=== PATIENT | male | born 1945 | race Caucasian/White ===

== ENCOUNTER 2021-01-05 12:39 | Inpatient (IN) | payer MEDICARE, OTHER, SELFPAY ==
--- NOTE | ~2021-01-05 | XR_ITS ---
EXAMINATION: LEFT ELBOW AND FOREARM X-RAY CLINICAL INFORMATION: REDNESS. EVALUATE FOR OSTEOMYELITIS. COMPARISON: None TECHNIQUE: 2 views of the left forearm and 3 views of the left elbow FINDINGS: Bone alignment is normal. No fracture or dislocation is seen. The joint space is normal. There may be a small joint elbow joint effusion. There is a diffuse soft tissue swelling of the elbow and proximal forearm. This is greatest over the dorsal proximal forearm adjacent to the proximal ulnar shaft. This is slightly heterogeneous in attenuation with oval-shaped a high attenuation area measuring 0.6 x 1.6 cm. Clinical exclude possible foreign body is recommended. No x-ray evidence of osteomyelitis is seen. XR/XR forearm LT 2V IMPRESSION: No x-ray evidence of osteomyelitis. Diffuse soft tissue swelling, most prominent over the dorsal distal forearm adjacent to the proximal ulnar shaft. This is slightly heterogeneous in attenuation with oval-shaped high attenuation area measuring 0.6 x 1.6 cm. Clinical correlation to exclude possible foreign body is recommended.
--- NOTE | ~2021-01-05 | XR_ITS ---
EXAMINATION: LEFT ELBOW AND FOREARM X-RAY CLINICAL INFORMATION: REDNESS. EVALUATE FOR OSTEOMYELITIS. COMPARISON: None TECHNIQUE: 2 views of the left forearm and 3 views of the left elbow FINDINGS: Bone alignment is normal. No fracture or dislocation is seen. The joint space is normal. There may be a small joint elbow joint effusion. There is a diffuse soft tissue swelling of the elbow and proximal forearm. This is greatest over the dorsal proximal forearm adjacent to the proximal ulnar shaft. This is slightly heterogeneous in attenuation with oval-shaped a high attenuation area measuring 0.6 x 1.6 cm. Clinical exclude possible foreign body is recommended. No x-ray evidence of osteomyelitis is seen. XR/XR elbow LT min 3V IMPRESSION: No x-ray evidence of osteomyelitis. Diffuse soft tissue swelling, most prominent over the dorsal distal forearm adjacent to the proximal ulnar shaft. This is slightly heterogeneous in attenuation with oval-shaped high attenuation area measuring 0.6 x 1.6 cm. Clinical correlation to exclude possible foreign body is recommended.
[2021-01-05 12:50] VITALS: BP 158/77; PULSE 72; RESP 18; TEMP 36.8; O2SAT 97; BMI 31.6
[2021-01-05 14:16] VITALS: BP 152/79; PULSE 76; RESP 16; TEMP 37.1; O2SAT 98
[2021-01-05 14:19] LABS: MANUAL DIFF FLAG NO
[2021-01-05 14:22] LABS: Basophils Absolute Auto 0.1 X10*3/uL (0.0-0.2); Basophils Percent Auto 0.6 % (0-2); Eosinophils Absolute Auto 0.2 X10*3/uL (0.0-0.4); Eosinophils Percent Auto 2.4 % (0-4); Hematocrit 43.6 % (42-52); Hemoglobin 14.4 g/dl (14.0-18.0); Imm Gran Abs Auto 0.08 X10*3/uL (0.00-0.03); Imm Gran Pct Auto 0.9 % (0.0-0.4); Lymphocytes Absolute Auto 1.1 X10*3/uL (1.2-4.9); Lymphocytes Percent Auto 13.3 % (20-40); Mean Corpuscular Hemoglobin 30.5 pg (27.0-33.0); Mean Corpuscular Volume 92.4 fL (80-98); Mean Platelet Volume 8.7 fL (9.4-12.4); Monocytes Absolute Auto 0.7 X10*3/uL (0.1-1.2); Monocytes Percent Auto 7.6 % (2-11); Neutrophils Absolute Auto 6.4 X10*3/uL (2.0-8.3); Neutrophils Percent Auto 75.2 % (45-73); Platelet Count 353 X10*3/uL (160-400); Red Blood Count 4.72 X10*6/uL (4.60-5.80); Red Cell Distribution Width 13.5 % (11.0-16.0); White Blood Count 8.5 X10*3/uL (4.8-10.8)
[2021-01-05 14:31] LABS: INTERNATIONAL NORM RATIO 1.1 (0.9-1.1); Prothrombin Time 13.2 SEC (10.8-13.0)
[2021-01-05] MEDS: Piperacillin Sodium/Tazobactam 3.375 GM in 0.9 % Sodium Chloride 50 ML IV (14:41)
[2021-01-05 14:47] LABS: Lactic Acid 1.5 mmol/L (0.5-2.0)
[2021-01-05 14:53] LABS: Alanine Aminotransferase 31 U/L (0-40); Albumin Level 4.4 g/dL (3.5-5.0); Alkaline Phosphatase 85 U/L (39-117); Anion Gap 15 (12-20); Aspartate Amino Transferase 20 U/L (5-37); Bilirubin Total 0.6 mg/dL (0.0-1.0); Blood Urea Nitrogen 17 mg/dL (9-16); C Reactive Protein 1.24 mg/dL (< or = 0.50); Calcium 10.1 mg/dL (8.4-10.2); Carbon Dioxide 26 mmol/L (22-29); Chloride 101 mmol/L (96-108); Estimated Glomerular Filt Rate > 60; Glucose Random 102 mg/dL (60-115); Sodium 138 mmol/L (135-145); Total Protein 8.3 g/dL (6.5-8.0)
--- NOTE | 2021-01-05 15:03 | ED.GENADULT ---
HPI - General Adult General Chief complaint: Wound/Laceration Stated complaint: L ELBOW PAIN NO KNOWN INJ Time Seen by Provider: 01/05/21 13:36 Source: patient Mode of arrival: ambulatory Limitations: no limitations History of Present Illness HPI narrative: Patient presents to the left elbow/forearm redness that has not improved with antibiotics. Patient was 1st on Keflex and then placed on Bactrim. Patient was informed that he grew Bactrim. Patient was sent by PCP for IV antibiotics. Patient has wound on left elbow and is unaware have he obtain it. Patient states known history of rubbing his elbow on hard surfaces. Patient denies being bitten by insects Related Data Home Medications Medication Instructions Recorded Confirmed doxazosin 2 mg tablet 2 mg PO DAILY@1200 08/13/20 01/05/21 losartan 100 1 tab PO DAILY 08/13/20 01/05/21 mg-hydrochlorothiazide 25 mg tablet lovastatin 40 mg tablet 40 mg PO DAILY@1700 08/13/20 01/05/21 metformin 500 mg tablet,extended 1,000 mg PO DAILY 08/13/20 01/05/21 release 24 hr metoprolol succinate 200 mg 200 mg PO DAILY@1200 08/13/20 01/05/21 tablet,extended release 24 hr trazodone 50 mg tablet 50 mg PO BEDTIME 08/13/20 01/05/21 albuterol sulfate 2 puff INHALATION Q4H PRN 01/05/21 01/05/21 amlodipine 10 mg PO DAILY@1700 01/05/21 01/05/21 aspirin 81 mg PO DAILY@1200 01/05/21 01/05/21 cholecalciferol (vitamin D3) 25 mcg PO DAILY@1700 01/05/21 01/05/21 [Vitamin D3] fluticasone propionate [Flonase] 1 spray INTRANASAL BID PRN 01/05/21 01/05/21 fluticasone propionate [Flovent] 1 puff INHALATION BID 01/05/21 01/05/21 metformin 500 mg PO BID@1200,1700 01/05/21 01/05/21 frxgpqxj-mld-IB-lycopen-lutein 1 tab PO DAILY@1700 01/05/21 01/05/21 [Centrum Silver Men] sulfamethoxazole-trimethoprim 1 tab PO BID 01/05/21 01/05/21 [Bactrim DS] Previous Rx's Medication Instructions Recorded blood sugar diagnostic #50 ea 08/13/20 lancets 28 gauge #100 ea 08/13/20 Allergies Allergy/AdvReac Type Severity Reaction Status Date / Time No Known Allergies Allergy Verified 08/13/20 10:18 Review of Systems Review of Systems: Yes all other systems are reviewed and are negative Constitutional: Constitutional: Reports as per HPI and Reports no additional constitutional complaints Eyes: Eyes: Reports as per HPI and Reports no additional eye complaints ENT: Reports system reviewed and no additional complaints, except as documented and Reports as per HPI Cardiovascular: Cardiovascular: Reports as per HPI and Reports no additional cardiovascular complaints Respiratory: Respiratory: Reports as per HPI and Reports no additional respiratory complaints Gastrointestinal: Gastrointestinal: Reports as per HPI and Reports no additional gastrointestinal complaints Genitourinary: Genitourinary: Reports no additional male genitourinary complaints and Reports as per HPI Musculoskeletal: Musculoskeletal: Reports no additional musculoskeletal complaints and Reports as per HPI Comments: Left forearm redness. Left upper redness. Neurologic: Reports system reviewed and no additional complaints, except as documented and Reports as per HPI Psychiatric: Psychiatric: Reports no additional psychiatric complaints and Reports as per HPI [facility] Past Medical History Medical History BPH (benign prostatic hyperplasia) HLD (hyperlipidemia) HTN (hypertension) Type 2 diabetes mellitus Surgical History History of cataract surgery History of nephrolithiasis History of removal of cyst History of vasectomy Family History Family History Father CVD (cardiovascular disease) Myocardial infarction Mother Liver cancer Pancreatic cancer Son Diabetes Social History Social History Alcohol intake: never Smoking Status: Never smoker Use of substances other than those prescribed or required for medical reasons: No Advance Directives: Yes Advance Directives Information Provided: Yes Advance Directives on File: No Physical Exam Vital Signs: Vital Signs: Last Vital Signs Temp 98.8 F 01/05/21 14:16 Pulse 76 01/05/21 14:16 Resp 16 01/05/21 14:16 BP 152/79 H 01/05/21 14:16 Pulse Ox 98 03/15/21 14:16 Body Mass Index 31.6 Const: General: cooperative, healthy appearing, comfortable, no acute distress, well developed, alert and awake Orientation/consciousness: patient oriented x3 HENMT: Head: Yes normal to inspection, Yes No palpable skull fracture present, Yes normocephalic and Yes atraumatic Eyes: General: appearance normal, both eyes and all related structures Neck: Neck: Yes normal visual inspection, Yes full ROM, Yes no lymphadenopathy, Yes no meningeal signs, Yes trachea midline, Yes supple and No tender Chest: Chest palpation & inspection: normal inspection of the chest and normal palpation of entire chest wall Resp: Effort & Inspection: normal respiratory effort and able to speak in complete sentences Auscultation: clear to auscultation bilaterally, no crackles, no rales, no rhonchi, no wheezes and breath sounds present Cardio: Jugular venous distension: no JVD Heart sounds: S1 normal heart sound present and S2 normal heart sound present GI: Inspection: Yes normal to inspection and No abdominal wall ecchymosis Palpation (GI): Soft to palpation, not firm, nontender, no guarding and not rigid : General: No CVA tenderness and Yes no CVA tenderness Back/Spine/Pelvis: Back: no CVA tenderness, No CVA tenderness and No back tenderness Skin: Other: Left upper extremity cellulitis General skin exam: elasticity normal Neuro: General: patient oriented x3, no meningeal signs and CN's II-XI intact bilaterally Extrem: Other: Left upper extremity: Skin below elbow is erythematous with opening with yellow collection ( no drainage), but no fluctuance. Dorsal and volar skin area of left forearm positive for erythema. Negative for red streaks. Patient has complete extension and flexion of left elbow. Negative for swelling of the elbow. General: Yes normal to inspection Psych: Appearance: grossly normal, well kempt and not disheveled Course Course Course Narrative: Not suspecting septic joint. Diagnosis cellulitis. Patient will have labs, x-ray, IV antibiotics ordered. Most likely patient will be admitted. Will discuss case with hospitalist. Reevaluation(s) Reevaluation #1: Patient ears/CRP is elevated. X-rays negative for osteomyelitis. Negative for elevated white blood cell count or abnormal vital signs. Patient received antibiotics. Spoke with hospitalist for admission for IV antibiotics for wound/cellulitis infection. Time: 17:23 Medical Decision Making MDM Narrative Medical decision making narrative: Left upper extremity cellulitis, wound infection Lab Data Result diagrams: 01/05/21 14:11 01/05/21 14:11 Labs: Lab Results 01/05/21 01/05/21 01/05/21 Range/Units 14:11 14:11 14:11 WBC 8.5 (4.8-10.8) X10*3/uL RBC 4.72 (4.60-5.80) X10*6/uL Hgb 14.4 (14.0-18.0) g/dl Hct 43.6 (42-52) % MCV 92.4 (80-98) fL MCH 30.5 (27.0-33.0) pg MCHC 33.0 (31.0-36.0) g/dl RDW 13.5 (11.0-16.0) % Plt Count 353 (160-400) X10*3/uL MPV 8.7 L (9.4-12.4) fL Immature Gran % (Auto) 0.9 H (0.0-0.4) % Neut % (Auto) 75.2 H (45-73) % Lymph % (Auto) 13.3 L (20-40) % Dubois % (Auto) 7.6 (2-11) % Eos % (Auto) 2.4 (0-4) % Baso % (Auto) 0.6 (0-2) % Lymph # (Auto) 1.1 L (1.2-4.9) X10*3/uL [place]ois # (Auto) 0.7 (0.1-1.2) X10*3/uL Eos # (Auto) 0.2 (0.0-0.4) X10*3/uL Baso # (Auto) 0.1 (0.0-0.2) X10*3/uL Abs Immat Gran (auto) 0.08 H (0.00-0.03) X10*3/uL Absolute Neuts (auto) 6.4 (2.0-8.3) X10*3/uL Absolute Nucleated RBC 0.000 (0.0-0.012) X10*3/uL Nucleated RBC % (auto) 0.0 (0.0-0.2) /100WBC ESR 53 H (0-15) MM/HR PT 13.2 H (10.8-13.0) SEC INR 1.1 (0.9-1.1) APTT 39.0 H (24.1-38.0) SEC Sodium (135-145) mmol/L Potassium (3.3-5.1) mmol/L Chloride (96-108) mmol/L Carbon Dioxide (22-29) mmol/L Anion Gap (12-20) BUN (9-16) mg/dL Creatinine (0.5-1.4) mg/dL Estim Creat Clear Calc Estimated GFR Random Glucose (60-115) mg/dL Lactic Acid (0.5-2.0) mmol/L Calcium (8.4-10.2) mg/dL Total Bilirubin (0.0-1.0) mg/dL AST (5-37) U/L ALT (0-40) U/L Alkaline Phosphatase (39-117) U/L C-Reactive Protein (< or = 0.50) mg/dL Total Protein (6.5-8.0) g/dL Albumin (3.5-5.0) g/dL COVID-19 ([facility]) (Negative) COVID-19 Clin Com 01/05/21 01/05/21 01/05/21 Range/Units 14:11 14:12 17:58 WBC (4.8-10.8) X10*3/uL RBC (4.60-5.80) X10*6/uL Hgb (14.0-18.0) g/dl Hct (42-52) % MCV (80-98) fL MCH (27.0-33.0) pg MCHC (31.0-36.0) g/dl RDW (11.0-16.0) % Plt Count (160-400) X10*3/uL MPV (9.4-12.4) fL Immature Gran % (Auto) (0.0-0.4) % Neut % (Auto) (45-73) % Lymph % (Auto) (20-40) % Dubois % (Auto) (2-11) % Eos % (Auto) (0-4) % Baso % (Auto) (0-2) % Lymph # (Auto) (1.2-4.9) X10*3/uL [place]ois # (Auto) (0.1-1.2) X10*3/uL Eos # (Auto) (0.0-0.4) X10*3/uL Baso # (Auto) (0.0-0.2) X10*3/uL Abs Immat Gran (auto) (0.00-0.03) X10*3/uL Absolute Neuts (auto) (2.0-8.3) X10*3/uL Absolute Nucleated RBC (0.0-0.012) X10*3/uL Nucleated RBC % (auto) (0.0-0.2) /100WBC ESR (0-15) MM/HR PT (10.8-13.0) SEC INR (0.9-1.1) APTT (24.1-38.0) SEC Sodium 138 (135-145) mmol/L Potassium 4.0 (3.3-5.1) mmol/L Chloride 101 (96-108) mmol/L Carbon Dioxide 26 (22-29) mmol/L Anion Gap 15 (12-20) BUN 17 H (9-16) mg/dL Creatinine 1.17 (0.5-1.4) mg/dL Estim Creat Clear Calc 55.0 Estimated GFR > 60 Random Glucose 102 (60-115) mg/dL Lactic Acid 1.5 (0.5-2.0) mmol/L Calcium 10.1 (8.4-10.2) mg/dL Total Bilirubin 0.6 (0.0-1.0) mg/dL AST 20 (5-37) U/L ALT 31 (0-40) U/L Alkaline Phosphatase 85 (39-117) U/L C-Reactive Protein 1.24 H (< or = 0.50) mg/dL Total Protein 8.3 H (6.5-8.0) g/dL Albumin 4.4 (3.5-5.0) g/dL COVID-19 ([facility]) Negative (Negative) COVID-19 Clin Com See Note Discharge Plan Discharge Clinical Impression: Cellulitis Patient Disposition: Admitted As Inpatient
--- NOTE | 2021-01-05 15:08 | PC.NURSE ---
pic of l elbow taken and placed in the chart. pt aware of plan of care.
[2021-01-05 15:09] LABS: Erythrocyte Sedimentation Rate 53 MM/HR (0-15)
[2021-01-05 18:19] LABS: COVID-19 Test Negative (Negative)
--- NOTE | 2021-01-05 18:36 | P.HPHOSP_ITS ---
History of Present Illness Date of Service: 01/05/21 Chief Complaint: Arm wound Review of Systems Review of Systems: Denies any recent fever chills or decrease in appetite respiratory denies any shortness of breath coverage production cardiovascular is adjustment of any PND or edema gastrointestinal denies any dysphagia abdominal pain nausea vomiting or diarrhea genitourinary denies any dysuria frequency or hematuria musculoskeletal denies any joint pain or swelling neuropsych denies any weakness or seizures all other systems reviewed are negative Skin left arm wound with new discharge [facility] Medical History BPH (benign prostatic hyperplasia) HLD (hyperlipidemia) HTN (hypertension) Type 2 diabetes mellitus Family History Father CVD (cardiovascular disease) Myocardial infarction Mother Liver cancer Pancreatic cancer Son Diabetes Surgical History History of cataract surgery History of nephrolithiasis History of removal of cyst History of vasectomy Social History Alcohol intake: never Smoking Status: Never smoker Use of substances other than those prescribed or required for medical reasons: No Currently Displaying Signs/Symptoms of Drug Intoxication Withdrawal: No Advance Directives: Yes Advance Directives Information Provided: Yes Advance Directives on File: No Do you have thoughts of harming others: None Do you have a plan to hurt others: No Plan service: Yes Current occupational status: retired [employer] Allergies Allergy/AdvReac Type Severity Reaction Status Date / Time No Known Allergies Allergy Verified 08/13/20 10:18 Active Medications: Current Medications Generic Name Dose Route Start Last Admin Trade Name Freq PRN Reason Stop Dose Admin Pharmacy Consult 1 each 01/05/21 16:58 Consult Rx Perform Med Rec MISCELLANE ONCE PRN Consult order Home Medications Medication Instructions Recorded Confirmed Last Taken Type doxazosin 2 mg tablet 2 mg PO DAILY@1200 08/13/20 01/05/21 01/05/21 History losartan 100 1 tab PO DAILY 08/13/20 01/05/21 01/05/21 History mg-hydrochlorothiazide 25 mg tablet lovastatin 40 mg tablet 40 mg PO DAILY@1700 08/13/20 01/05/21 01/04/21 History metformin 500 mg tablet,extended 1,000 mg PO DAILY 08/13/20 01/05/21 01/05/21 History release 24 hr metoprolol succinate 200 mg 200 mg PO DAILY@1200 08/13/20 01/05/21 01/05/21 History tablet,extended release 24 hr trazodone 50 mg tablet 50 mg PO BEDTIME 08/13/20 01/05/21 01/04/21 History albuterol sulfate 2 puff INHALATION Q4H PRN 01/05/21 01/05/21 Unknown History amlodipine 10 mg PO DAILY@1700 01/05/21 01/05/21 01/04/21 History aspirin 81 mg PO DAILY@1200 01/05/21 01/05/21 01/05/21 History cholecalciferol (vitamin D3) 25 mcg PO DAILY@1700 01/05/21 01/05/21 01/04/21 History [Vitamin D3] fluticasone propionate [Flonase] 1 spray INTRANASAL BID PRN 01/05/21 01/05/21 Unknown History fluticasone propionate [Flovent] 1 puff INHALATION BID 01/05/21 01/05/21 01/05/21 History metformin 500 mg PO BID@1200,1700 01/05/21 01/05/21 01/04/21 History zmpsciuj-nyt-BB-lycopen-lutein 1 tab PO DAILY@1700 01/05/21 01/05/21 01/04/21 History [Centrum Silver Men] sulfamethoxazole-trimethoprim 1 tab PO BID 01/05/21 01/05/21 Unknown History [Bactrim DS] Physical Exam Vital Signs and Narrative: Vital Signs: Last Vital Signs Temp 98.8 F 01/05/21 14:16 Pulse 76 01/05/21 14:16 Resp 16 01/05/21 14:16 BP 152/79 H 01/05/21 14:16 Pulse Ox 98 01/05/21 14:16 Body Mass Index 31.6 Appearing in no acute distress head is normocephalic atraumatic eyes pupils are PERRLA sclera is anicteric mouth throat mucous membranes are intact and moist neck is supple no lymphadenopathy, no JVD noted lung sounds are clear to auscultation heart regular rate rhythm, clear S1, S2 positive bowel sounds, abdomen is soft, nontender neuro patient is alert x3, no focal deficits Results Labs CBC and Chem 7: 01/06/21 06:01 01/06/21 06:01 Labs: Laboratory Results - last 24 hr 01/05/21 01/05/21 01/05/21 14:11 14:11 14:11 MCV 92.4 MCH 30.5 MCHC 33.0 RDW 13.5 Plt Count 353 MPV 8.7 L Immature Gran % (Auto) 0.9 H Neut % (Auto) 75.2 H Lymph % (Auto) 13.3 L [place] % (Auto) 7.6 Eos % (Auto) 2.4 Baso % (Auto) 0.6 Lymph # (Auto) 1.1 L [place] # (Auto) 0.7 Eos # (Auto) 0.2 Baso # (Auto) 0.1 Abs Immat Gran (auto) 0.08 H Absolute Neuts (auto) 6.4 Absolute Nucleated RBC 0.000 Nucleated RBC % (auto) 0.0 ESR 53 H PT 13.2 H INR 1.1 APTT 39.0 H Anion Gap Estim Creat Clear Calc Estimated GFR Random Glucose Lactic Acid Calcium Total Bilirubin AST ALT Alkaline Phosphatase C-Reactive Protein Total Protein Albumin COVID-19 ([facility]) COVID-19 Clin Com 01/05/21 01/05/21 01/05/21 14:11 14:12 17:58 MCV MCH MCHC RDW Plt Count MPV Immature Gran % (Auto) Neut % (Auto) Lymph % (Auto) Sierra % (Auto) Eos % (Auto) Baso % (Auto) Lymph # (Auto) Sierra # (Auto) Eos # (Auto) Baso # (Auto) Abs Immat Gran (auto) Absolute Neuts (auto) Absolute Nucleated RBC Nucleated RBC % (auto) ESR PT INR APTT Anion Gap 15 Estim Creat Clear Calc 55.0 Estimated GFR > 60 Random Glucose 102 Lactic Acid 1.5 Calcium 10.1 Total Bilirubin 0.6 AST 20 ALT 31 Alkaline Phosphatase 85 C-Reactive Protein 1.24 H Total Protein 8.3 H Albumin 4.4 COVID-19 ([facility]) Negative COVID-19 Clin Com See Note Imaging Radiologist's Impressions: Impressions Elbow X-Ray 01/05/21 13:55 IMPRESSION: No x-ray evidence of osteomyelitis. Diffuse soft tissue swelling, most prominent over the dorsal distal forearm adjacent to the proximal ulnar shaft. This is slightly heterogeneous in attenuation with oval-shaped high attenuation area measuring 0.6 x 1.6 cm. Clinical correlation to exclude possible foreign body is recommended. Forearm X-Ray 01/05/21 13:55 IMPRESSION: No x-ray evidence of osteomyelitis. Diffuse soft tissue swelling, most prominent over the dorsal distal forearm adjacent to the proximal ulnar shaft. This is slightly heterogeneous in attenuation with oval-shaped high attenuation area measuring 0.6 x 1.6 cm. Clinical correlation to exclude possible foreign body is recommended. Assessment and Plan (1) Cellulitis: Status: Acute 75-year-old man admitted with worsening left elbow/forearm wound. Wound not on the joint. Patient does not know how he sustained this wound. He does have a history of diabetes denies any history of wounds in the past. He had been treated by a urgent care clinic with oral antibiotics however he reported more recently has seen increased discharge. Forearm wound. Unknown etiology. Patient denies trauma or insect bite. Was told that he had MRSA in the wound from the urgent care clinic -start vancomycin it, MRSA swab -ID consultation -general surgery consultation for possible I&D. Diabetes mellitus. -sliding scale, ADA diet, metformin Hypertension. Stable blood pressure. -continue amlodipine, metoprolol Hyperlipidemia. -continue aspirin DVT prophylaxis with Lovenox Case discussed with Dr. Cecelia Bowman code
[2021-01-05 20:27] VITALS: BP 158/76; PULSE 67; RESP 20; TEMP 36.9; O2SAT 93
[2021-01-05 20:58] LABS: Glucose, Whole Blood 173 mg/dL (60-115)
[2021-01-05] MEDS: Insulin Lispro 100 UNIT/ML 3 ML VIAL SUBCUT (21:32)
[2021-01-05] MEDS: traZODone HCL 50 MG TABLET PO (21:32)
[2021-01-05] MEDS: 0.9 % Sodium Chloride Flush 3 ML SYRINGE IVFLUSH (21:33)
[2021-01-05 23:43] VITALS: BP 115/53; PULSE 64; RESP 18; TEMP 37; O2SAT 94
[2021-01-06] VITALS (7 sets, daily range): BP systolic 128–179; BP diastolic 66–92; PULSE 57–104; RESP 16–18; TEMP 36.3–36.9; O2SAT 94–97; BMI 31.6
[2021-01-06 06:13] LABS: MANUAL DIFF FLAG NO
[2021-01-06 06:17] LABS: Basophils Absolute Auto 0.1 X10*3/uL (0.0-0.2); Basophils Percent Auto 0.6 % (0-2); Eosinophils Absolute Auto 0.3 X10*3/uL (0.0-0.4); Eosinophils Percent Auto 3.3 % (0-4); Hematocrit 40.4 % (42-52); Hemoglobin 13.4 g/dl (14.0-18.0); Imm Gran Abs Auto 0.05 X10*3/uL (0.00-0.03); Imm Gran Pct Auto 0.6 % (0.0-0.4); Lymphocytes Absolute Auto 1.3 X10*3/uL (1.2-4.9); Lymphocytes Percent Auto 16.3 % (20-40); Mean Corpuscular HGB Conc 33.2 g/dl (31.0-36.0); Mean Corpuscular Hemoglobin 30.7 pg (27.0-33.0); Mean Corpuscular Volume 92.4 fL (80-98); Mean Platelet Volume 8.7 fL (9.4-12.4); Monocytes Absolute Auto 0.8 X10*3/uL (0.1-1.2); Monocytes Percent Auto 10.5 % (2-11); Neutrophils Absolute Auto 5.4 X10*3/uL (2.0-8.3); Neutrophils Percent Auto 68.7 % (45-73); Platelet Count 320 X10*3/uL (160-400); Red Blood Count 4.37 X10*6/uL (4.60-5.80); Red Cell Distribution Width 13.7 % (11.0-16.0); White Blood Count 7.8 X10*3/uL (4.8-10.8)
[2021-01-06 06:58] LABS: Anion Gap 11 (12-20); Blood Urea Nitrogen 15 mg/dL (9-16); Calcium 9.3 mg/dL (8.4-10.2); Carbon Dioxide 29 mmol/L (22-29); Chloride 103 mmol/L (96-108); Creatinine Clr Calc Pharmacy 59.1; Estimated Glomerular Filt Rate > 60; Glucose Random 110 mg/dL (60-115); Sodium 139 mmol/L (135-145)
[2021-01-06] MEDS: metFORMIN HCl ER 500 MG TAB.ER.24H 1000 MG PO (07:35)
[2021-01-06] MEDS: Losartan Potassium 50 MG TABLET 100 MG PO (07:35)
[2021-01-06] MEDS: 0.9 % Sodium Chloride Flush 3 ML SYRINGE IVFLUSH ×2 (07:36→21:58)
[2021-01-06] MEDS: hydroCHLOROthiazide 25 MG TABLET PO (07:36)
--- NOTE | 2021-01-06 07:40 | P.CONGS_ITS ---
History of Present Illness Consult details Consult date: 01/06/21 Requesting physician: Aranza Herrmann Narrative: 75 year old male patient presenting with a two week history of pain, redness and swelling in the left forearm, just below the elbow which increased in severity over the last week. He subsequently developed drainage for pus from the wound and presented to the ED for evaluation. He is admitted to the medical service for antibiotics. Surgical consult is requested for possible incision and drainage. He denies any inciting event and is unaware of any injury, foreign body, insect bite or injection in the left arm. He denies a previous history of similar infections. His past medical history is significant for diabetes. Review of Systems Constitutional: Constitutional: Denies chills, Denies fever(s), Denies headache(s), Denies night sweats and Denies weakness ENT: Denies headache(s) Cardiovascular: Cardiovascular: Reports no additional cardiovascular complaints and Reports dyspnea Respiratory: Respiratory: Reports cough, Denies hemoptysis and Reports dyspnea Gastrointestinal: Gastrointestinal: Reports no additional gastrointestinal complaints Genitourinary: Genitourinary: Reports no additional male genitourinary complaints Musculoskeletal: Musculoskeletal: Reports as per HPI and Denies numbness Integumentary/Breasts: Skin/Breast: Reports as per HPI Neurologic: Denies headache(s), Denies numbness and Denies weakness PMFSH Past Medical History Medical History BPH (benign prostatic hyperplasia) HLD (hyperlipidemia) HTN (hypertension) Type 2 diabetes mellitus Family History Family History Father CVD (cardiovascular disease) Myocardial infarction Mother Liver cancer Pancreatic cancer Son Diabetes Surgical History Surgical History History of cataract surgery History of nephrolithiasis History of removal of cyst History of vasectomy Social History Social History Alcohol intake: never Smoking Status: Never smoker Use of substances other than those prescribed or required for medical reasons: No Advance Directives: Yes Advance Directives Information Provided: Yes Advance Directives on File: No Do you have thoughts of harming others: None Do you have a plan to hurt others: No Plan Meds Allergies Allergy/AdvReac Type Severity Reaction Status Date / Time No Known Allergies Allergy Verified 08/13/20 10:18 Active Medications: Current Medications Generic Name Dose Route Start Last Admin Trade Name Freq PRN Reason Stop Dose Admin Acetaminophen 650 mg 01/05/21 18:49 Acetaminophen 325 Mg Tablet PO Q6H PRN Pain, Mild (Pain Scale 1-3) Albuterol Sulfate 2 puff 01/05/21 18:49 Albuterol Sulfate 90 Mcg 8 Gm Inhaler INHALE Q4H PRN dyspnea Amlodipine Besylate 10 mg 01/06/21 17:00 Amlodipine Besylate 10 Mg Tablet PO DAILY@1700 [facility] Protocol Aspirin 81 mg 01/06/21 12:00 Aspirin Enteric Coated 81 Mg Tablet.Dr PO DAILY@1200 [facility] Doxazosin Mesylate 2 mg 01/06/21 12:00 Doxazosin Mesylate 2 Mg Tablet PO DAILY@1200 [facility] Protocol Fluticasone Propionate 1 spray 01/05/21 18:49 Fluticasone Propionate Nasal 16 Gm [place] NOSTRIL-B BID PRN Allergy Symptoms Fluticasone Propionate 1 puff 01/05/21 20:00 01/05/21 21:30 Fluticasone Propionate 100 Mcg Blst.W.Dev INHALE Not Given RBID [facility] Hydrochlorothiazide 25 mg 01/06/21 09:00 01/06/21 07:36 Hydrochlorothiazide 25 Mg Tablet PO 25 mg DAILY [facility] Administration Protocol Vancomycin HCl 750 mg/ 275 mls @ 183.333 mls/hr 01/06/21 16:00 Vancomycin HCl 500 mg/ Sodium IV Chloride Q24H [facility] Insulin Human Lispro 0 unit 01/05/21 21:00 01/06/21 07:32 Insulin Lispro 100 Unit/Ml 3 Ml Vial SUBCUT Not Given QIDACHS [facility] Protocol Losartan Potassium 100 mg 01/06/21 09:00 01/06/21 07:35 Losartan Potassium 50 Mg Tablet PO 100 mg DAILY [facility] Administration Protocol Metformin HCl 500 mg 01/06/21 12:00 Metformin Hcl Er 500 Mg Tab.Er.24h PO BID@1200,1700 [facility] Metformin HCl 1,000 mg 01/06/21 09:00 01/06/21 07:35 Metformin Hcl Er 500 Mg Tab.Er.24h PO 1,000 mg DAILY [facility] Administration Metoprolol Succinate 200 mg 01/06/21 12:00 Metoprolol Succinate Er 100 Mg Tab.Er.24h PO DAILY@1200 [facility] Protocol Multivitamins/Minerals 1 tab 01/06/21 17:00 Multivitamin With Minerals Tablet PO DAILY@1700 [facility] Ondansetron HCl 4 mg 01/05/21 18:49 Ondansetron Hcl 4 Mg/2 Ml Vial IVPUSH Q8H PRN Nausea and Vomiting Pharmacy Consult 1 each 01/05/21 16:58 Consult Rx Perform Med Rec MISCELLANE ONCE PRN Consult order Pharmacy Consult 1 each 01/05/21 18:50 Consult Rx Vancomycin Dosing MISCELLANE DAILY PRN Consult order Pravastatin Sodium 40 mg 01/06/21 17:00 Pravastatin Sodium 40 Mg Tablet PO DAILY@1700 [facility] Sodium Chloride 3 ml 01/06/21 00:00 01/06/21 07:36 0.9 % Sodium Chloride Flush 3 Ml Syringe IVFLUSH 3 ml QSHIFT [facility] Administration Trazodone HCl 50 mg 01/05/21 21:00 01/05/21 21:32 Trazodone Hcl 50 Mg Tablet PO 50 mg BEDTIME [facility] Administration Vitamin D 25 mcg 01/06/21 17:00 Cholecalciferol (Vitamin D3) 25 Mcg Tablet PO DAILY@1700 [facility] Home Medications Medication Instructions Recorded Confirmed Last Taken Type doxazosin 2 mg tablet 2 mg PO DAILY@1200 08/13/20 01/05/21 01/05/21 History losartan 100 1 tab PO DAILY 08/13/20 01/05/21 01/05/21 History mg-hydrochlorothiazide 25 mg tablet lovastatin 40 mg tablet 40 mg PO DAILY@1700 08/13/20 01/05/21 01/04/21 History metformin 500 mg tablet,extended 1,000 mg PO DAILY 08/13/20 01/05/21 01/05/21 History release 24 hr metoprolol succinate 200 mg 200 mg PO DAILY@1200 08/13/20 01/05/21 01/05/21 History tablet,extended release 24 hr trazodone 50 mg tablet 50 mg PO BEDTIME 08/13/20 01/05/21 01/04/21 History albuterol sulfate 2 puff INHALATION Q4H PRN 01/05/21 01/05/21 Unknown History amlodipine 10 mg PO DAILY@1700 01/05/21 01/05/21 01/04/21 History aspirin 81 mg PO DAILY@1200 01/05/21 01/05/21 01/05/21 History cholecalciferol (vitamin D3) 25 mcg PO DAILY@1700 01/05/21 01/05/21 01/04/21 History [Vitamin D3] fluticasone propionate [Flonase] 1 spray INTRANASAL BID PRN 01/05/21 01/05/21 Unknown History fluticasone propionate [Flovent] 1 puff INHALATION BID 01/05/21 01/05/21 01/05/21 History metformin 500 mg PO BID@1200,1700 01/05/21 01/05/21 01/04/21 History [id number]-EB-lycopen-lutein 1 tab PO DAILY@1700 01/05/21 01/05/21 01/04/21 History [Centrum Silver Men] sulfamethoxazole-trimethoprim 1 tab PO BID 01/05/21 01/05/21 Unknown History [Bactrim DS] Physical Exam Vital Signs: Vital Signs: Last Vital Signs Temp 98.1 F 01/06/21 07:29 Pulse 104 H 01/06/21 07:29 Resp 18 01/06/21 07:29 BP 178/92 H 01/06/21 07:29 Pulse Ox 94 01/06/21 07:29 Body Mass Index 31.6 Const: General: cooperative, comfortable, no acute distress, alert and awake HENMT: Head: Yes normocephalic and Yes atraumatic Neck: Neck: Yes normal visual inspection and Yes no JVD Resp: Effort & Inspection: normal respiratory effort, no cough, no grunting and not labored GI: Inspection: Yes normal to inspection Palpation (GI): Soft to palpation Skin: Other: ulcer in left forearm as noted below Extrem: Elbow/forearm/wrist images: 1. area of redness with ulcer approximately 1-1.5 cm in diameter, ? bursa at the base of the wound. Normal ROM at elbow. 2. Results Labs Result diagrams: 01/06/21 06:01 01/06/21 06:01 Labs: Abnormal lab results 01/05/21 01/05/21 01/05/21 Range/Units 14:11 14:11 14:11 RBC (4.60-5.80) X10*6/uL Hgb (14.0-18.0) g/dl Hct (42-52) % MPV 8.7 L (9.4-12.4) fL Immature Gran % (Auto) 0.9 H (0.0-0.4) % Neut % (Auto) 75.2 H (45-73) % Lymph % (Auto) 13.3 L (20-40) % Lymph # (Auto) 1.1 L (1.2-4.9) X10*3/uL Abs Immat Gran (auto) 0.08 H (0.00-0.03) X10*3/uL ESR 53 H (0-15) MM/HR PT 13.2 H (10.8-13.0) SEC APTT 39.0 H (24.1-38.0) SEC Anion Gap (12-20) BUN (9-16) mg/dL POC Glucose (60-115) mg/dL C-Reactive Protein (< or = 0.50) mg/dL Total Protein (6.5-8.0) g/dL 01/05/21 01/05/21 01/06/21 Range/Units 14:11 20:48 06:01 RBC 4.37 L (4.60-5.80) X10*6/uL Hgb 13.4 L (14.0-18.0) g/dl Hct 40.4 L (42-52) % MPV 8.7 L (9.4-12.4) fL Immature Gran % (Auto) 0.6 H (0.0-0.4) % Neut % (Auto) (45-73) % Lymph % (Auto) 16.3 L (20-40) % Lymph # (Auto) (1.2-4.9) X10*3/uL Abs Immat Gran (auto) 0.05 H (0.00-0.03) X10*3/uL ESR (0-15) MM/HR PT (10.8-13.0) SEC APTT (24.1-38.0) SEC Anion Gap (12-20) BUN 17 H (9-16) mg/dL POC Glucose 173 H (60-115) mg/dL C-Reactive Protein 1.24 H (< or = 0.50) mg/dL Total Protein 8.3 H (6.5-8.0) g/dL 01/06/21 Range/Units 06:01 RBC (4.60-5.80) X10*6/uL Hgb (14.0-18.0) g/dl Hct (42-52) % MPV (9.4-12.4) fL Immature Gran % (Auto) (0.0-0.4) % Neut % (Auto) (45-73) % Lymph % (Auto) (20-40) % Lymph # (Auto) (1.2-4.9) X10*3/uL Abs Immat Gran (auto) (0.00-0.03) X10*3/uL ESR (0-15) MM/HR PT (10.8-13.0) SEC APTT (24.1-38.0) SEC Anion Gap 11 L (12-20) BUN (9-16) mg/dL POC Glucose (60-115) mg/dL C-Reactive Protein (< or = 0.50) mg/dL Total Protein (6.5-8.0) g/dL Short CBC 01/05/21 01/06/21 Range/Units 14:11 06:01 WBC 8.5 7.8 (4.8-10.8) X10*3/uL Hgb 14.4 13.4 L (14.0-18.0) g/dl Hct 43.6 40.4 L (42-52) % Plt Count 353 320 (160-400) X10*3/uL BMP 01/05/21 01/06/21 14:11 06:01 Sodium 138 139 Potassium 4.0 4.0 Chloride 101 103 Carbon Dioxide 26 29 BUN 17 H 15 Creatinine 1.17 1.09 Calcium 10.1 9.3 D Liver Function 01/05/21 Range/Units 14:11 Total Bilirubin 0.6 (0.0-1.0) mg/dL AST 20 (5-37) U/L ALT 31 (0-40) U/L Alkaline Phosphatase 85 (39-117) U/L Albumin 4.4 (3.5-5.0) g/dL All other labs normal. Assessment and Plan (1) Abscess of forearm, left: Status: Acute 75 year old male patient with previous history of DM, now with a 2 week history of pain, redness and swelling in the left forearm. Wound is now wide open and draining; does not appear to require further incision or drainage. Would recommend evaluation by orthopedics due to the proximity to the elbow for possible bursa abscess. No evidence or history to indicate a foreign body.
[2021-01-06 07:46] LABS: Glucose, Whole Blood 117 mg/dL (60-115)
--- NOTE | 2021-01-06 08:23 | MHC.CM.PN ---
pt lives alone in home. he reports he is independent in his care. he has a son that lives in the area and can help him if he needs it, as well as a freind. pt denies the need for vna at dc. at this time dc plan is home no svcs. cm to cont. to follow.
--- NOTE | 2021-01-06 11:11 | HO.PM.IMPN ---
Subjective Subjective Date of Service: 01/06/21 Interval History: Patient seen and examined at bedside Patient reported some improvement in arm swelling abscess drainage Review of Systems Denies any recent fever chills or decrease in appetite respiratory denies any shortness of breath coverage production cardiovascular is adjustment of any PND or edema gastrointestinal denies any dysphagia abdominal pain nausea vomiting or diarrhea genitourinary denies any dysuria frequency or hematuria musculoskeletal denies any joint pain or swelling neuropsych denies any weakness or seizures all other systems reviewed are negative Skin left arm wound with new discharge Physical Exam Vital Signs: Vital Signs: Last Vital Signs Temp 98.1 F 01/06/21 07:29 Pulse 104 H 01/06/21 07:29 Resp 18 01/06/21 07:29 BP 178/92 H 01/06/21 07:29 Pulse Ox 94 01/06/21 07:29 Body Mass Index 31.6 Const: General: cooperative, healthy appearing, comfortable, no acute distress, well developed, alert and awake Orientation/consciousness: patient oriented x3 HENMT: Head: Yes normal to inspection, Yes No palpable skull fracture present, Yes normocephalic and Yes atraumatic Eyes: General: appearance normal, both eyes and all related structures Neck: Neck: Yes normal visual inspection, Yes full ROM, Yes no lymphadenopathy, Yes no meningeal signs, Yes trachea midline, Yes supple, No tender and Yes no JVD Chest: Chest palpation & inspection: normal inspection of the chest and normal palpation of entire chest wall Resp: Effort & Inspection: normal respiratory effort, able to speak in complete sentences, no cough, no grunting and not labored Auscultation: clear to auscultation bilaterally, no crackles, no rales, no rhonchi, no wheezes and breath sounds present Cardio: Jugular venous distension: no JVD Heart sounds: S1 normal heart sound present and S2 normal heart sound present GI: Inspection: Yes normal to inspection and No abdominal wall ecchymosis Palpation (GI): Soft to palpation, not firm, nontender, no guarding and not rigid : General: No CVA tenderness and Yes no CVA tenderness Back/Spine/Pelvis: Back: no CVA tenderness, No CVA tenderness and No back tenderness Skin: Other: ulcer in left forearm as noted below General skin exam: elasticity normal Neuro: General: patient oriented x3, no meningeal signs and CN's II-XI intact bilaterally Extrem: Other: Left upper extremity: Skin below elbow is erythematous with opening with yellow collection ( no drainage), but no fluctuance. Dorsal and volar skin area of left forearm positive for erythema. Negative for red streaks. Patient has complete extension and flexion of left elbow. Negative for swelling of the elbow. General: Yes normal to inspection Psych: Appearance: grossly normal, well kempt and not disheveled Objective Data Current Medications Generic Name Dose Route Start Last Admin Trade Name Freq PRN Reason Stop Dose Admin Acetaminophen 650 mg 01/05/21 18:49 Acetaminophen 325 Mg Tablet PO Q6H PRN Pain, Mild (Pain Scale 1-3) Albuterol Sulfate 2 puff 01/05/21 18:49 Albuterol Sulfate 90 Mcg 8 Gm Inhaler INHALE Q4H PRN dyspnea Amlodipine Besylate 10 mg 01/06/21 17:00 Amlodipine Besylate 10 Mg Tablet PO DAILY@1700 [facility] Protocol Aspirin 81 mg 01/06/21 12:00 Aspirin Enteric Coated 81 Mg Tablet.Dr PO DAILY@1200 [facility] Doxazosin Mesylate 2 mg 01/06/21 12:00 Doxazosin Mesylate 2 Mg Tablet PO DAILY@1200 [facility] Protocol Fluticasone Propionate 1 spray 01/05/21 18:49 Fluticasone Propionate Nasal [address] [place] NOSTRIL-B BID PRN Allergy Symptoms Fluticasone Propionate 1 puff 01/05/21 20:00 01/05/21 21:30 Fluticasone Propionate 100 Mcg Blst.W.Dev INHALE Not Given RBID [facility] Hydrochlorothiazide 25 mg 01/06/21 09:00 01/06/21 07:36 Hydrochlorothiazide 25 Mg Tablet PO 25 mg DAILY [facility] Administration Protocol Vancomycin HCl 750 mg/ 275 mls @ 183.333 mls/hr 01/06/21 16:00 Vancomycin HCl 500 mg/ Sodium IV Chloride Q24H [facility] Insulin Human Lispro 0 unit 01/05/21 21:00 01/06/21 07:32 Insulin Lispro 100 Unit/Ml 3 Ml Vial SUBCUT Not Given QIDACHS [facility] Protocol Losartan Potassium 100 mg 01/06/21 09:00 01/06/21 07:35 Losartan Potassium 50 Mg Tablet PO 100 mg DAILY [facility] Administration Protocol Metformin HCl 500 mg 01/06/21 12:00 Metformin Hcl Er 500 Mg Tab.Er.24h PO BID@1200,1700 [facility] Metformin HCl 1,000 mg 01/06/21 09:00 01/06/21 07:35 Metformin Hcl Er 500 Mg Tab.Er.24h PO 1,000 mg DAILY [facility] Administration Metoprolol Succinate 200 mg 01/06/21 12:00 Metoprolol Succinate Er 100 Mg Tab.Er.24h PO DAILY@1200 [facility] Protocol Multivitamins/Minerals 1 tab 01/06/21 17:00 Multivitamin With Minerals Tablet PO DAILY@1700 [facility] Ondansetron HCl 4 mg 01/05/21 18:49 Ondansetron Hcl 4 Mg/2 Ml Vial IVPUSH Q8H PRN Nausea and Vomiting Pharmacy Consult 1 each 01/05/21 16:58 Consult Rx Perform Med Rec MISCELLANE ONCE PRN Consult order Pharmacy Consult 1 each 01/05/21 18:50 Consult Rx Vancomycin Dosing MISCELLANE DAILY PRN Consult order Pravastatin Sodium 40 mg 01/06/21 17:00 Pravastatin Sodium 40 Mg Tablet PO DAILY@1700 [facility] Sodium Chloride 3 ml 01/06/21 00:00 01/06/21 07:36 0.9 % Sodium Chloride Flush 3 Ml Syringe IVFLUSH 3 ml QSHIFT [facility] Administration Trazodone HCl 50 mg 01/05/21 21:00 01/05/21 21:32 Trazodone Hcl 50 Mg Tablet PO 50 mg BEDTIME [facility] Administration Vitamin D 25 mcg 01/06/21 17:00 Cholecalciferol (Vitamin D3) 25 Mcg Tablet PO DAILY@1700 [facility] Labs CBC & Chem 7: 01/06/21 06:01 01/06/21 06:01 Microbiology Microbiology Results: Microbiology 01/05/21 22:53 Axilla Left MRSA Culture - Final Assessment and Plan (1) Cellulitis: Status: Acute Assessment and Plan: 75-year-old man admitted with worsening left elbow/forearm wound. Wound not on the joint. Patient does not know how he sustained this wound. He does have a history of diabetes denies any history of wounds in the past. He had been treated by a urgent care clinic with oral antibiotics however he reported more recently has seen increased discharge. Left Forearm cellulitis and abscess Patient Was told that he had MRSA in the wound from the urgent care clinic Continue vancomycin -ID consultation pending -general surgery consultated recommended continue current management as abscess draining recommended ortho consult for possible bursal involvement, ortho consult requested Diabetes mellitus. Continue sliding scale, ADA diet, Continue metformin Hypertension. Stable blood pressure. -continue amlodipine, metoprolol DVT prophylaxis with Lovenox
[2021-01-06] MEDS: Aspirin Enteric Coated 81 MG TABLET.DR PO (11:55)
[2021-01-06] MEDS: Doxazosin Mesylate 2 MG TABLET PO (11:56)
[2021-01-06] MEDS: Metoprolol Succinate ER 100 MG TAB.ER.24H 200 MG PO (11:56)
[2021-01-06] MEDS: metFORMIN HCl ER 500 MG TAB.ER.24H PO (11:56)
[2021-01-06 12:09] LABS: Glucose, Whole Blood 138 mg/dL (60-115)
--- NOTE | 2021-01-06 12:57 | PM.EVENT ---
Event Note Date of Service: 01/06/21 Event Note: left elbow bursitis Full rom without pain No fluctulance No active drainage on iv vanco cont. abx self draining at times compression no further surgical intervention at this time.
[2021-01-06] MEDS: Enoxaparin Sodium 40 MG/0.4 ML SYRINGE SUBCUT (13:17)
[2021-01-06 16:12] LABS: Glucose, Whole Blood 142 mg/dL (60-115)
[2021-01-06] MEDS: Pravastatin Sodium 40 MG TABLET PO (16:55)
[2021-01-06] MEDS: amLODIPine Besylate 10 MG TABLET PO (16:55)
[2021-01-06] MEDS: Cholecalciferol (Vitamin D3) 25 MCG TABLET PO (16:55)
--- NOTE | 2021-01-06 19:15 | PM.CNOR ---
History of Present Illness HPI Consult date: 01/06/21 Consult reason: other Chief complaint: arm wound Narrative: Mr. Whiteside is a 75-year-old male who presented to the emergency room yesterday with a 2 week history of left proximal forearm pain, swelling, and redness. He denies any trauma, injury, IVDA, prior wound or lesion. He states that his symptoms progressively worsened until he noticed that there was an area that came to a head which appeared to be filled with pus. He eventually did develop drainage of purulent fluid and presented to the emergency room yesterday evening. He was admitted to the hospital on the medical service, placed on antibiotics, and Orthopedics was consulted. Review of Systems Review of Systems: Yes all other systems are reviewed and are negative PMFSH Past Medical History Medical History BPH (benign prostatic hyperplasia) HLD (hyperlipidemia) HTN (hypertension) Type 2 diabetes mellitus Family History Family History Father CVD (cardiovascular disease) Myocardial infarction Mother Liver cancer Pancreatic cancer Son Diabetes Surgical History Surgical History History of cataract surgery History of nephrolithiasis History of removal of cyst History of vasectomy Social History Social History Alcohol intake: never Smoking Status: Never smoker Use of substances other than those prescribed or required for medical reasons: No Currently Displaying Signs/Symptoms of Drug Intoxication Withdrawal: No Advance Directives: Yes Advance Directives Information Provided: Yes Advance Directives on File: No Do you have thoughts of harming others: None Do you have a plan to hurt others: No Plan service: Yes Current occupational status: retired Meds Allergies Allergy/AdvReac Type Severity Reaction Status Date / Time No Known Allergies Allergy Verified 08/13/20 10:18 Active Medications: Current Medications Generic Name Dose Route Start Last Admin Trade Name Freq PRN Reason Stop Dose Admin Acetaminophen 650 mg 01/05/21 18:49 Acetaminophen 325 Mg Tablet PO Q6H PRN Pain, Mild (Pain Scale 1-3) Albuterol Sulfate 2 puff 01/05/21 18:49 Albuterol Sulfate 90 Mcg 8 Gm Inhaler INHALE Q4H PRN dyspnea Amlodipine Besylate 10 mg 01/06/21 17:00 01/06/21 16:55 Amlodipine Besylate 10 Mg Tablet PO 10 mg DAILY@1700 [facility] Administration Protocol Aspirin 81 mg 01/06/21 12:00 01/06/21 11:55 Aspirin Enteric Coated 81 Mg Tablet.Dr PO 81 mg DAILY@1200 [facility] Administration Doxazosin Mesylate 2 mg 01/06/21 12:00 01/06/21 11:56 Doxazosin Mesylate 2 Mg Tablet PO 2 mg DAILY@1200 [facility] Administration Protocol Enoxaparin Sodium 40 mg 01/06/21 13:00 01/06/21 13:17 Enoxaparin Sodium 40 Mg/0.4 Ml Syringe SUBCUT 40 mg Q24H [facility] Administration Fluticasone Propionate 1 spray 01/05/21 18:49 Fluticasone Propionate Nasal 16 Gm [place] NOSTRIL-B BID PRN Allergy Symptoms Fluticasone Propionate 1 puff 01/05/21 20:00 01/06/21 11:46 Fluticasone Propionate 100 Mcg Blst.W.Dev INHALE Not Given RBID [facility] Hydrochlorothiazide 25 mg 01/06/21 09:00 01/06/21 07:36 Hydrochlorothiazide 25 Mg Tablet PO 25 mg DAILY [facility] Administration Protocol Vancomycin HCl 750 mg/ 275 mls @ 183.333 mls/hr 01/06/21 16:00 01/06/21 17:45 Vancomycin HCl 500 mg/ Sodium IV Infused Chloride Q24H [facility] Infusion Insulin Human Lispro 0 unit 01/05/21 21:00 01/06/21 16:09 Insulin Lispro 100 Unit/Ml 3 Ml Vial SUBCUT Not Given QIDACHS [facility] Protocol Losartan Potassium 100 mg 01/06/21 09:00 01/06/21 07:35 Losartan Potassium 50 Mg Tablet PO 100 mg DAILY [facility] Administration Protocol Metoprolol Succinate 200 mg 01/06/21 12:00 01/06/21 11:56 Metoprolol Succinate Er 100 Mg Tab.Er.24h PO 200 mg DAILY@1200 [facility] Administration Protocol Multivitamins/Minerals 1 tab 01/06/21 17:00 01/06/21 16:55 Multivitamin With Minerals Tablet PO 1 tab DAILY@1700 [facility] Administration Ondansetron HCl 4 mg 01/05/21 18:49 Ondansetron Hcl 4 Mg/2 Ml Vial IVPUSH Q8H PRN Nausea and Vomiting Pharmacy Consult 1 each 01/05/21 16:58 Consult Rx Perform Med Rec MISCELLANE ONCE PRN Consult order Pharmacy Consult 1 each 01/05/21 18:50 Consult Rx Vancomycin Dosing MISCELLANE DAILY PRN Consult order Pravastatin Sodium 40 mg 01/06/21 17:00 01/06/21 16:55 Pravastatin Sodium 40 Mg Tablet PO 40 mg DAILY@1700 [facility] Administration Sodium Chloride 3 ml 01/06/21 00:00 01/06/21 16:13 0.9 % Sodium Chloride Flush 3 Ml Syringe IVFLUSH Not Given QSHIFT [facility] Trazodone HCl 50 mg 01/05/21 21:00 01/05/21 21:32 Trazodone Hcl 50 Mg Tablet PO 50 mg BEDTIME [facility] Administration Vitamin D 25 mcg 01/06/21 17:00 01/06/21 16:55 Cholecalciferol (Vitamin D3) 25 Mcg Tablet PO 25 mcg DAILY@1700 [facility] Administration Home Medications Medication Instructions Recorded Confirmed Last Taken Type doxazosin 2 mg tablet 2 mg PO DAILY@1200 08/13/20 01/05/21 01/05/21 History losartan 100 1 tab PO DAILY 08/13/20 01/05/21 01/05/21 History mg-hydrochlorothiazide 25 mg tablet lovastatin 40 mg tablet 40 mg PO DAILY@1700 08/13/20 01/05/21 01/04/21 History metformin 500 mg tablet,extended 1,000 mg PO DAILY 08/13/20 01/05/21 01/05/21 History release 24 hr metoprolol succinate 200 mg 200 mg PO DAILY@1200 08/13/20 01/05/21 01/05/21 History tablet,extended release 24 hr trazodone 50 mg tablet 50 mg PO BEDTIME 08/13/20 01/05/21 01/04/21 History albuterol sulfate 2 puff INHALATION Q4H PRN 01/05/21 01/05/21 Unknown History amlodipine 10 mg PO DAILY@1700 01/05/21 01/05/21 01/04/21 History aspirin 81 mg PO DAILY@1200 01/05/21 01/05/21 01/05/21 History cholecalciferol (vitamin D3) 25 mcg PO DAILY@1700 01/05/21 01/05/21 01/04/21 History [Vitamin D3] fluticasone propionate [Flonase] 1 spray INTRANASAL BID PRN 01/05/21 01/05/21 Unknown History fluticasone propionate [Flovent] 1 puff INHALATION BID 01/05/21 01/05/21 01/05/21 History metformin 500 mg PO BID@1200,1700 01/05/21 01/05/21 01/04/21 History [id number]-lycopen-lutein 1 tab PO DAILY@1700 01/05/21 01/05/21 01/04/21 History [Centrum Silver Men] sulfamethoxazole-trimethoprim 1 tab PO BID 01/05/21 01/05/21 Unknown History [Bactrim DS] Physical Exam Vital Signs: Vital Signs: Last Vital Signs Temp 98 F 01/06/21 15:25 Pulse 64 01/06/21 15:25 Resp 16 01/06/21 15:25 BP 179/74 H 01/06/21 15:25 Pulse Ox 96 01/06/21 15:25 Body Mass Index 31.6 Const: General: cooperative and no acute distress Orientation/consciousness: patient oriented x3 Resp: Effort & Inspection: normal respiratory effort and able to speak in complete sentences Cardio: Peripheral pulses: Peripheral pulses 2+ throughout Neuro: General: patient oriented x3 Extrem: Other: The left proximal forearm has moderate edema and erythema. The patient has an open lesion on the lateral aspect of the proximal forearm with formation of granulated tissue. There is no active drainage or fluctulance. Patient is able to achieve full elbow range of motion with no pain. Results Labs Result Diagrams: 01/06/21 06:01 01/06/21 06:01 Labs: Abnormal lab results 01/05/21 01/06/21 01/06/21 Range/Units 20:48 06:01 06:01 RBC 4.37 L (4.60-5.80) X10*6/uL Hgb 13.4 L (14.0-18.0) g/dl Hct 40.4 L (42-52) % MPV 8.7 L (9.4-12.4) fL Immature Gran % (Auto) 0.6 H (0.0-0.4) % Lymph % (Auto) 16.3 L (20-40) % Abs Immat Gran (auto) 0.05 H (0.00-0.03) X10*3/uL Anion Gap 11 L (12-20) POC Glucose 173 H (60-115) mg/dL 01/06/21 01/06/21 01/06/21 Range/Units 07:28 11:38 16:05 RBC (4.60-5.80) X10*6/uL Hgb (14.0-18.0) g/dl Hct (42-52) % MPV (9.4-12.4) fL Immature Gran % (Auto) (0.0-0.4) % Lymph % (Auto) (20-40) % Abs Immat Gran (auto) (0.00-0.03) X10*3/uL Anion Gap (12-20) POC Glucose 117 H 138 H 142 H (60-115) mg/dL H & H 01/05/21 01/06/21 Range/Units 14:11 06:01 Hgb 14.4 13.4 L (14.0-18.0) g/dl Hct 43.6 40.4 L (42-52) % Coagulation 01/05/21 Range/Units 14:11 INR 1.1 (0.9-1.1) All other labs normal. Assessment and Plan (1) Abscess of forearm, left: Status: Acute Mr. Whiteside is a 75-year-old male who presented to the ED after 1 week history of left proximal forearm swelling, redness, edema. He states that there was formation of a pocket of purulent fluid that developed on the lateral aspect of the proximal forearm near the elbow. Eventually it did self drainage which is what prompted him to go to the emergency room. He was admitted to the hospital on the Medicine Service and Orthopedics was consulted. At this time, the patient has been placed on IV vancomycin and no further orthopedic intervention is needed at this time.
[2021-01-06] MEDS: Fluticasone Propionate 100 MCG BLST.W.DEV 1 PUFF INHALE (19:40)
[2021-01-06 20:31] LABS: Glucose, Whole Blood 120 mg/dL (60-115)
[2021-01-06] MEDS: traZODone HCL 50 MG TABLET PO (21:58)
[2021-01-07] VITALS (7 sets, daily range): BP systolic 121–160; BP diastolic 68–78; PULSE 63–77; RESP 16–20; TEMP 36–36.6; O2SAT 94–96
[2021-01-07 07:45] LABS: Glucose, Whole Blood 126 mg/dL (60-115)
[2021-01-07] MEDS: Losartan Potassium 50 MG TABLET 100 MG PO (07:54)
[2021-01-07] MEDS: Fluticasone Propionate 100 MCG BLST.W.DEV 1 PUFF INHALE ×2 (07:54→20:46)
[2021-01-07] MEDS: hydroCHLOROthiazide 25 MG TABLET PO (07:54)
[2021-01-07] MEDS: 0.9 % Sodium Chloride Flush 3 ML SYRINGE IVFLUSH ×3 (07:57→21:49)
--- NOTE | 2021-01-07 08:34 | P.CDIC_ITS ---
CDI Concurrent Query Service Date: 01/07/21 Documentation Clarification: Please clarify if you are treating a proba ble/suspected/likely or confirmed: Obesity Please specify if known or other Provider Response: Other Other Diagnosis: Obesity PLEASE DO NOT DELETE/MODIFY EXISTING CONTENT Additional information is needed in order to code to the highest accuracy and appropriate Severity of Illness (SOI). Please clarify the information noted below in your progress notes and discharge summary. Risk Factors/Clinical Indicators/Treatments Nutrition note 01/06 - patient is obese with BMI 31.6 recommends 1600 calorie per day to promote slow wt loss. CDS: Marybeth Vickers CCS, CDIS Contact Number: [phone] Please Review the information above and exercise your independent professional judgment in responding to the query. If you concur, pleas document in the PROGRESS NOTES and DISCHARGE SUMMARY. If you do not agree with the query, please document in the query above. THIS QUERY IS PART OF THE PERMANENT MEDICAL RECORD
[2021-01-07 11:29] LABS: Glucose, Whole Blood 179 mg/dL (60-115)
[2021-01-07] MEDS: Doxazosin Mesylate 2 MG TABLET PO (11:33)
[2021-01-07] MEDS: Aspirin Enteric Coated 81 MG TABLET.DR PO (11:33)
[2021-01-07] MEDS: Insulin Lispro 100 UNIT/ML 3 ML VIAL SUBCUT (11:33)
[2021-01-07] MEDS: Metoprolol Succinate ER 100 MG TAB.ER.24H 200 MG PO (11:33)
--- NOTE | 2021-01-07 12:35 | HO.PM.IMPN ---
Subjective Subjective Date of Service: 01/08/21 Interval History: Patient seen and examined at bedside Arm swelling and erythema improving Review of Systems Denies any recent fever chills or decrease in appetite respiratory denies any shortness of breath coverage production cardiovascular is adjustment of any PND or edema gastrointestinal denies any dysphagia abdominal pain nausea vomiting or diarrhea genitourinary denies any dysuria frequency or hematuria musculoskeletal denies any joint pain or swelling neuropsych denies any weakness or seizures all other systems reviewed are negative Skin left arm wound with new discharge Physical Exam Vital Signs: Vital Signs: Last Vital Signs Temp 97.3 F 01/07/21 11:20 Pulse 67 01/07/21 11:20 Resp 16 01/07/21 11:20 BP 137/78 01/07/21 11:20 Pulse Ox 96 01/07/21 11:20 Body Mass Index 31.6 Const: General: cooperative, healthy appearing, comfortable, no acute distress, well developed, alert and awake Orientation/consciousness: patient oriented x3 HENMT: Head: Yes normal to inspection, Yes No palpable skull fracture present, Yes normocephalic and Yes atraumatic Eyes: General: appearance normal, both eyes and all related structures Neck: Neck: Yes normal visual inspection, Yes full ROM, Yes no lymphadenopathy, Yes no meningeal signs, Yes trachea midline, Yes supple, No tender and Yes no JVD Chest: Chest palpation & inspection: normal inspection of the chest and normal palpation of entire chest wall Resp: Effort & Inspection: normal respiratory effort, able to speak in complete sentences, no cough, no grunting and not labored Auscultation: clear to auscultation bilaterally, no crackles, no rales, no rhonchi, no wheezes and breath sounds present Cardio: Jugular venous distension: no JVD Heart sounds: S1 normal heart sound present and S2 normal heart sound present GI: Inspection: Yes normal to inspection and No abdominal wall ecchymosis Palpation (GI): Soft to palpation, not firm, nontender, no guarding and not rigid : General: No CVA tenderness and Yes no CVA tenderness Back/Spine/Pelvis: Back: no CVA tenderness, No CVA tenderness and No back tenderness Skin: Other: ulcer in left forearm as noted below General skin exam: elasticity normal Neuro: General: patient oriented x3, no meningeal signs and CN's II-XI intact bilaterally Extrem: Other: Left upper extremity: Skin below elbow is erythematous with opening with yellow collection ( no drainage), but no fluctuance. Dorsal and volar skin area of left forearm positive for erythema. Negative for red streaks. Patient has complete extension and flexion of left elbow. Negative for swelling of the elbow. General: Yes normal to inspection Psych: Appearance: grossly normal, well kempt and not disheveled Objective Data Current Medications Generic Name Dose Route Start Last Admin Trade Name Freq PRN Reason Stop Dose Admin Acetaminophen 650 mg 01/05/21 18:49 Acetaminophen 325 Mg Tablet PO Q6H PRN Pain, Mild (Pain Scale 1-3) Albuterol Sulfate 2 puff 01/05/21 18:49 Albuterol Sulfate 90 Mcg 8 Gm Inhaler INHALE Q4H PRN dyspnea Amlodipine Besylate 10 mg 01/06/21 17:00 01/06/21 16:55 Amlodipine Besylate 10 Mg Tablet PO 10 mg DAILY@1700 [facility] Administration Protocol Aspirin 81 mg 01/06/21 12:00 01/07/21 11:33 Aspirin Enteric Coated 81 Mg Tablet.Dr PO 81 mg DAILY@1200 [facility] Administration Doxazosin Mesylate 2 mg 01/06/21 12:00 01/07/21 11:33 Doxazosin Mesylate 2 Mg Tablet PO 2 mg DAILY@1200 [facility] Administration Protocol Enoxaparin Sodium 40 mg 01/06/21 13:00 01/06/21 13:17 Enoxaparin Sodium 40 Mg/0.4 Ml Syringe SUBCUT 40 mg Q24H [facility] Administration Fluticasone Propionate 1 spray 01/05/21 18:49 Fluticasone Propionate Nasal 16 Gm [place] NOSTRIL-B BID PRN Allergy Symptoms Fluticasone Propionate 1 puff 01/05/21 20:00 01/07/21 07:54 Fluticasone Propionate 100 Mcg Blst.W.Dev INHALE 1 puff RBID [facility] Administration Hydrochlorothiazide 25 mg 01/06/21 09:00 01/07/21 07:54 Hydrochlorothiazide 25 Mg Tablet PO 25 mg DAILY [facility] Administration Protocol Vancomycin HCl 1,250 mg/ 250 mls @ 166.667 mls/hr 01/07/21 16:00 Sodium Chloride IV Q24H [facility] Insulin Human Lispro 0 unit 01/05/21 21:00 01/07/21 11:33 Insulin Lispro 100 Unit/Ml 3 Ml Vial SUBCUT 2 unit QIDACHS [facility] Administration Protocol Losartan Potassium 100 mg 01/06/21 09:00 01/07/21 07:54 Losartan Potassium 50 Mg Tablet PO 100 mg DAILY [facility] Administration Protocol Metoprolol Succinate 200 mg 01/06/21 12:00 01/07/21 11:33 Metoprolol Succinate Er 100 Mg Tab.Er.24h PO 200 mg DAILY@1200 [facility] Administration Protocol Multivitamins/Minerals 1 tab 01/06/21 17:00 01/06/21 16:55 Multivitamin With Minerals Tablet PO 1 tab DAILY@1700 [facility] Administration Ondansetron HCl 4 mg 01/05/21 18:49 Ondansetron Hcl 4 Mg/2 Ml Vial IVPUSH Q8H PRN Nausea and Vomiting Pharmacy Consult 1 each 01/05/21 16:58 Consult Rx Perform Med Rec MISCELLANE ONCE PRN Consult order Pharmacy Consult 1 each 01/05/21 18:50 Consult Rx Vancomycin Dosing MISCELLANE DAILY PRN Consult order Pravastatin Sodium 40 mg 01/06/21 17:00 01/06/21 16:55 Pravastatin Sodium 40 Mg Tablet PO 40 mg DAILY@1700 [facility] Administration Sodium Chloride 3 ml 01/06/21 00:00 01/07/21 07:57 0.9 % Sodium Chloride Flush 3 Ml Syringe IVFLUSH 3 ml QSHIFT [facility] Administration Trazodone HCl 50 mg 01/05/21 21:00 01/06/21 21:58 Trazodone Hcl 50 Mg Tablet PO 50 mg BEDTIME [facility] Administration Vitamin D 25 mcg 01/06/21 17:00 01/06/21 16:55 Cholecalciferol (Vitamin D3) 25 Mcg Tablet PO 25 mcg DAILY@1700 [facility] Administration Labs CBC & Chem 7: 01/06/21 06:01 01/06/21 06:01 Microbiology Microbiology Results: Microbiology 01/05/21 14:19 Blood - Venous Blood Culture - Preliminary No growth after 24 hours. 01/05/21 14:10 Blood - Venous Blood Culture - Preliminary No growth after 24 hours. 01/05/21 22:53 Axilla Left MRSA Culture - Final Assessment and Plan (1) Cellulitis: Status: Acute Assessment and Plan: 75-year-old man admitted with worsening left elbow/forearm wound. Wound not on the joint. Patient does not know how he sustained this wound. He does have a history of diabetes denies any history of wounds in the past. He had been treated by a urgent care clinic with oral antibiotics however he reported more recently has seen increased discharge. Left Forearm cellulitis and abscess improving Patient Was told that he had MRSA in the wound from the urgent care clinic Continue vancomycin Monitor Vanco trough ID consultation pending General surgery consultated recommended continue current management as abscess draining recommended ortho consult given proximity to bursa, Diabetes mellitus. Continue sliding scale, ADA diet, Continue metformin Hypertension. Stable blood pressure. -continue amlodipine, metoprolol DVT prophylaxis with Lovenox
[2021-01-07] MEDS: Enoxaparin Sodium 40 MG/0.4 ML SYRINGE SUBCUT (13:06)
[2021-01-07 14:23] LABS: MRSA Nasal PCR POSITIVE (Negative); SA Nasal PCR POSITIVE (Negative)
[2021-01-07] MEDS: vancomycin HCL 1,250 MG in 0.9 % Sodium Chloride 250 ML 166.67 MG IV (15:08)
[2021-01-07 16:14] LABS: Glucose, Whole Blood 84 mg/dL (60-115)
--- NOTE | 2021-01-07 16:44 | W.PM.IDCN ---
History of Present Illness Data of Consult Service Date: 01/07/21 Requesting physician: Gene Rai Primary Care Provider: Jose Goldstein MD HPI Reason for consult: left elbow superficial skin infection He had area of redness spontaneously develop left elbow one week ago. He had 3 days of Keflex and about four of Bactrim and then had ongoing redness so came in to care He has no fever or increased WBC Review of Systems Review of Systems: Yes all other systems are reviewed and are negative PMFSH Past Medical History Medical History BPH (benign prostatic hyperplasia) HLD (hyperlipidemia) HTN (hypertension) Type 2 diabetes mellitus Family History Family History Father CVD (cardiovascular disease) Myocardial infarction Mother Liver cancer Pancreatic cancer Son Diabetes Family history: reviewed and not pertinent Surgical History Surgical History History of cataract surgery History of nephrolithiasis History of removal of cyst History of vasectomy Social History Social History Alcohol intake: never Smoking Status: Never smoker Use of substances other than those prescribed or required for medical reasons: No Currently Displaying Signs/Symptoms of Drug Intoxication Withdrawal: No Advance Directives: Yes Advance Directives Information Provided: Yes Advance Directives on File: No Do you have thoughts of harming others: None Do you have a plan to hurt others: No Plan service: Yes Current occupational status: retired [employer] Allergies Allergy/AdvReac Type Severity Reaction Status Date / Time No Known Allergies Allergy Verified 08/13/20 10:18 Active Medications: Current Medications Generic Name Dose Route Start Last Admin Trade Name Freq PRN Reason Stop Dose Admin Acetaminophen 650 mg 01/05/21 18:49 Acetaminophen 325 Mg Tablet PO Q6H PRN Pain, Mild (Pain Scale 1-3) Albuterol Sulfate 2 puff 01/05/21 18:49 Albuterol Sulfate 90 Mcg 8 Gm Inhaler INHALE Q4H PRN dyspnea Amlodipine Besylate 10 mg 01/06/21 17:00 01/06/21 16:55 Amlodipine Besylate 10 Mg Tablet PO 10 mg DAILY@1700 [facility] Administration Protocol Aspirin 81 mg 01/06/21 12:00 01/07/21 11:33 Aspirin Enteric Coated 81 Mg Tablet.Dr PO 81 mg DAILY@1200 [facility] Administration Doxazosin Mesylate 2 mg 01/06/21 12:00 01/07/21 11:33 Doxazosin Mesylate 2 Mg Tablet PO 2 mg DAILY@1200 [facility] Administration Protocol Enoxaparin Sodium 40 mg 01/06/21 13:00 01/07/21 13:06 Enoxaparin Sodium 40 Mg/0.4 Ml Syringe SUBCUT 40 mg Q24H [facility] Administration Fluticasone Propionate 1 spray 01/05/21 18:49 Fluticasone Propionate Nasal 16 Gm [place] NOSTRIL-B BID PRN Allergy Symptoms Fluticasone Propionate 1 puff 01/05/21 20:00 01/07/21 07:54 Fluticasone Propionate 100 Mcg Blst.W.Dev INHALE 1 puff RBID GEOVANNA Administration Hydrochlorothiazide 25 mg 01/06/21 09:00 01/07/21 07:54 Hydrochlorothiazide 25 Mg Tablet PO 25 mg DAILY [facility] Administration Protocol Vancomycin HCl 1,250 mg/ 250 mls @ 166.667 mls/hr 01/07/21 16:00 01/07/21 15:08 Sodium Chloride IV 166.67 mls/hr Q24H [facility] Administration Insulin Human Lispro 0 unit 01/05/21 21:00 01/07/21 11:33 Insulin Lispro 100 Unit/Ml 3 Ml Vial SUBCUT 2 unit QIDACHS [facility] Administration Protocol Losartan Potassium 100 mg 01/06/21 09:00 01/07/21 07:54 Losartan Potassium 50 Mg Tablet PO 100 mg DAILY [facility] Administration Protocol Metoprolol Succinate 200 mg 01/06/21 12:00 01/07/21 11:33 Metoprolol Succinate Er 100 Mg Tab.Er.24h PO 200 mg DAILY@1200 [facility] Administration Protocol Multivitamins/Minerals 1 tab 01/06/21 17:00 01/06/21 16:55 Multivitamin With Minerals Tablet PO 1 tab DAILY@1700 [facility] Administration Ondansetron HCl 4 mg 01/05/21 18:49 Ondansetron Hcl 4 Mg/2 Ml Vial IVPUSH Q8H PRN Nausea and Vomiting Pharmacy Consult 1 each 01/05/21 16:58 Consult Rx Perform Med Rec MISCELLANE ONCE PRN Consult order Pharmacy Consult 1 each 01/05/21 18:50 Consult Rx Vancomycin Dosing MISCELLANE DAILY PRN Consult order Pravastatin Sodium 40 mg 01/06/21 17:00 01/06/21 16:55 Pravastatin Sodium 40 Mg Tablet PO 40 mg DAILY@1700 [facility] Administration Sodium Chloride 3 ml 01/06/21 00:00 01/07/21 15:09 0.9 % Sodium Chloride Flush 3 Ml Syringe IVFLUSH 3 ml QSHIFT [facility] Administration Trazodone HCl 50 mg 01/05/21 21:00 01/06/21 21:58 Trazodone Hcl 50 Mg Tablet PO 50 mg BEDTIME [facility] Administration Vitamin D 25 mcg 01/06/21 17:00 01/06/21 16:55 Cholecalciferol (Vitamin D3) 25 Mcg Tablet PO 25 mcg DAILY@1700 [facility] Administration Home Medications Medication Instructions Recorded Confirmed Last Taken Type doxazosin 2 mg tablet 2 mg PO DAILY@1200 08/13/20 01/05/21 01/05/21 History losartan 100 1 tab PO DAILY 08/13/20 01/05/21 01/05/21 History mg-hydrochlorothiazide 25 mg tablet lovastatin 40 mg tablet 40 mg PO DAILY@1700 08/13/20 01/05/21 01/04/21 History metformin 500 mg tablet,extended 1,000 mg PO DAILY 08/13/20 01/05/21 01/05/21 History release 24 hr metoprolol succinate 200 mg 200 mg PO DAILY@1200 08/13/20 01/05/21 01/05/21 History tablet,extended release 24 hr trazodone 50 mg tablet 50 mg PO BEDTIME 08/13/20 01/05/21 01/04/21 History albuterol sulfate 2 puff INHALATION Q4H PRN 01/05/21 01/05/21 Unknown History amlodipine 10 mg PO DAILY@1700 01/05/21 01/05/21 01/04/21 History aspirin 81 mg PO DAILY@1200 01/05/21 01/05/21 01/05/21 History cholecalciferol (vitamin D3) 25 mcg PO DAILY@1700 01/05/21 01/05/21 01/04/21 History [Vitamin D3] fluticasone propionate [Flonase] 1 spray INTRANASAL BID PRN 01/05/21 01/05/21 Unknown History fluticasone propionate [Flovent] 1 puff INHALATION BID 01/05/21 01/05/21 01/05/21 History metformin 500 mg PO BID@1200,1700 01/05/21 01/05/21 01/04/21 History udxxeruf-pqr-UL-lycopen-lutein 1 tab PO DAILY@1700 01/05/21 01/05/21 01/04/21 History [Centrum Silver Men] sulfamethoxazole-trimethoprim 1 tab PO BID 01/05/21 01/05/21 Unknown History [Bactrim DS] Physical Exam Vital Signs: Vital Signs: Last Vital Signs Temp 97 F 01/07/21 15:28 Pulse 77 01/07/21 15:28 Resp 16 01/07/21 15:28 BP 133/75 01/07/21 15:28 Pulse Ox 95 01/07/21 15:28 Body Mass Index 31.6 Const: General: cooperative HENMT: Head: Yes normal to inspection Mouth: Normal oral and palatal mucosa present Eyes: General: appearance normal, both eyes and all related structures Resp: Effort & Inspection: normal respiratory effort Cardio: Rate: regular rate Rhythm: regular rhythm GI: Palpation (GI): Soft to palpation and nontender Skin: General skin exam: no rashes or lesions noted Extrem: Other: left elbow some yellowish exudate Results Labs CBC & Chem 7: 01/06/21 06:01 01/06/21 06:01 Microbiology Microbiology Results: Microbiology 01/05/21 14:19 Blood - Venous Blood Culture - Preliminary No growth after 48 hours. 01/05/21 14:10 Blood - Venous Blood Culture - Preliminary No growth after 48 hours. 01/05/21 22:53 Axilla Left MRSA Culture - Final Assessment and Plan (1) Abscess of forearm, left: Problem details: Abscess forearm staph/strep Status: Acute Po Linezolid 600 mg bid or Doxycycline tomorrow for a week with local care (2) Cellulitis: Status: Acute
[2021-01-07] MEDS: Cholecalciferol (Vitamin D3) 25 MCG TABLET PO (17:53)
[2021-01-07] MEDS: amLODIPine Besylate 10 MG TABLET PO (17:53)
[2021-01-07] MEDS: Pravastatin Sodium 40 MG TABLET PO (17:53)
[2021-01-07 20:33] LABS: Glucose, Whole Blood 141 mg/dL (60-115)
[2021-01-07] MEDS: traZODone HCL 50 MG TABLET PO (21:49)
[2021-01-08 03:48] VITALS: BP 139/72; PULSE 78; RESP 20; TEMP 36.4; O2SAT 96
[2021-01-08 07:14] VITALS: BP 136/77; PULSE 62; RESP 17; TEMP 36.4; O2SAT 92
[2021-01-08 07:24] LABS: Glucose, Whole Blood 134 mg/dL (60-115)
[2021-01-08] MEDS: Losartan Potassium 50 MG TABLET 100 MG PO (08:14)
[2021-01-08] MEDS: hydroCHLOROthiazide 25 MG TABLET PO (08:15)
[2021-01-08] MEDS: Fluticasone Propionate 100 MCG BLST.W.DEV 1 PUFF INHALE (08:15)
[2021-01-08] MEDS: 0.9 % Sodium Chloride Flush 3 ML SYRINGE IVFLUSH (08:16)
--- NOTE | 2021-01-08 10:57 | PM.DS ---
DS: Providers Provider Date of Service: 01/08/21 Date of admission: 01/05/21 18:49 Primary care physician: Jose Goldstein MD Consults: 01/05/21 18:49 Consult to General Surgery Routine Consulting Provider: Bakari Dangelo Reason for consultation: left elbow/forarm wound, ? I&D Has provider been notified: No 01/06/21 11:10 Consult to Orthopedics [place]ine [place]ing Provider[place] [facility] [place] [facility] Reason for consultation: ceelulitis abscess fore arm concern for bursal abscess 01/07/21 07:48 Consult to Infectious Diseases Routine Consulting Provider: Archana Guerrero Reason for consultation: cellulitis abscess DS: Diagnosis Discharge Diagnosis (1) Cellulitis: Status: Acute (2) Abscess of forearm, left: Status: Acute Problem details: Abscess forearm staph/strep DS: Medications Discharge Medications Home Medications: Home Medications Medication Instructions Recorded Confirmed doxazosin 2 mg tablet 2 mg PO DAILY@1200 08/13/20 01/05/21 losartan 100 1 tab PO DAILY 08/13/20 01/05/21 mg-hydrochlorothiazide 25 mg tablet lovastatin 40 mg tablet 40 mg PO DAILY@1700 08/13/20 01/05/21 metformin 500 mg tablet,extended 1,000 mg PO DAILY 08/13/20 01/05/21 release 24 hr metoprolol succinate 200 mg 200 mg PO DAILY@1200 08/13/20 01/05/21 tablet,extended release 24 hr trazodone 50 mg tablet 50 mg PO BEDTIME 08/13/20 01/05/21 Centrum Silver Men 1 tab PO DAILY@17001/05/21 01/05/21 albuterol sulfate 2 puff INHALATION Q4H PRN 01/05/21 01/05/21 amlodipine 10 mg PO DAILY@17001/05/21 01/05/21 aspirin 81 mg PO DAILY@1200 01/05/21 01/05/21 cholecalciferol (vitamin D3) 25 mcg PO DAILY@17001/05/21 01/05/21 [Vitamin D3] fluticasone propionate 1 puff INHALATION BID 01/05/21 01/05/21 fluticasone propionate 1 spray INTRANASAL BID PRN 01/05/21 01/05/21 metformin 500 mg PO BID@1200,1700 01/05/21 01/05/21 Previous Rx's Medication Instructions Recorded blood sugar diagnostic #50 ea 08/13/20 lancets 28 gauge #100 ea 08/13/20 doxycycline hyclate 100 mg PO BID #14 tab 01/08/21 DS: Summary Hospital Course Hospital Course: HPI 75-year-old man admitted with worsening left elbow/forearm wound and swelling , for last few days patient denies any trauma, patient was seen in urgent care clinic and was prescribed oral antibiotic but erythema and swelling was worsening and wound was draining some patient decided to come to ER, in the ER found to cellulitis and abscess of left for arm , patient was told that he has MRSA from wound, inpatient admission was requested hospital code 75-year-old male admitted with cellulitis and abscess of left forearm , patient was started on IV vancomycin, general surgery was consulted recommended continue wound dressing and no need for I and d as wound ,already draining, surgery recommended orthopedic consult given proximity to bursa, patient was seen by Orthopedic surgery reconciled continue IV medication and no signs of bursal involvement, patient's erythema and swelling was improving, wound continues to drain, swelling and erythema was much improved, patient was seen by infectious disease, recommended p.o. doxycycline on discharge, patient was stable discharged on p.o. doxycycline with visiting nurse wound care, patient will need daily dry dressing on discharge Time Spent with Patient Time attestation: Total time spent providing and/or coordinating discharge services: Discharge coordination time: Greater than 30 minutes Physical Exam Vital Signs: Vital Signs: Last Vital Signs Temp 97.6 F 01/08/21 07:14 Pulse 62 01/08/21 07:14 Resp 17 01/08/21 07:14 BP 136/77 01/08/21 07:14 Pulse Ox 92 01/08/21 07:14 Body Mass Index 31.6 DS: Data Data Completed and Pending Labs on day of discharge: Laboratory Results - last 24 hr 01/07/21 01/07/21 01/07/21 11:20 13:04 16:09 POC Glucose 179 H 84 Nasal Screen MRSA (PCR) POSITIVE A Nasal S. aureus Screen POSITIVE A Nasal MRSA/S.aureus Interp SEE NOTE 01/07/21 01/08/21 20:19 07:11 POC Glucose 141 H 134 H Nasal Screen MRSA (PCR) Nasal S. aureus Screen Nasal MRSA/S.aureus Interp Preliminary micro results at discharge 01/05/21 14:19 Blood Culture - Preliminary Blood - Venous No growth after 48 hours. 01/05/21 14:10 Blood Culture - Preliminary Blood - Venous No growth after 48 hours. Discharge Plan Discharge Anticipated Discharge Date/Time: 01/08/21 10:44 Patient Disposition: Home Health Service Referrals: [facility] [Outside] Jose Goldstein MD [Primary Care Provider] - Discharge Medications: New doxycycline hyclate 100 mg tablet 100 mg PO BID Qty: 14 RF: 0 Continued albuterol sulfate 90 mcg/actuation HFA aerosol inhaler 2 puff inhalation Q4H PRN (Reason: dyspnea) RF: 0 fluticasone propionate 50 mcg/actuation [place],Suspension 1 spray INTRANASAL BID PRN (Reason: Allergy Symptoms) RF: 0 metformin 500 mg Tablet Extended Release 24 Hr 500 mg PO BID@1200,1700 RF: 0 fluticasone propionate 110 mcg/actuation Hfa Aerosol Inhaler 1 puff INHALATION BID RF: 0 cholecalciferol (vitamin D3) [Vitamin D3] 25 mcg (1,000 unit) Tablet 25 mcg PO DAILY@1700 RF: 0 Centrum Silver Men 300-600-300 mcg Tablet 1 tab PO DAILY@1700 RF: 0 aspirin 81 mg tablet,delayed release (DR/EC) 81 mg PO DAILY@1200 RF: 0 amlodipine 10 mg tablet 10 mg PO DAILY@1700 RF: 0 lovastatin 40 mg tablet 40 mg PO DAILY@1700 RF: 0 trazodone 50 mg tablet 50 mg PO BEDTIME RF: 0 metformin 500 mg tablet extended release 24 hr 1,000 mg PO DAILY RF: 0 doxazosin 2 mg tablet 2 mg PO DAILY@1200 RF: 0 metoprolol succinate 200 mg tablet extended release 24 hr 200 mg PO DAILY@1200 RF: 0 losartan-hydrochlorothiazide 100-25 mg tablet 1 tab PO DAILY RF: 0 Discontinued sulfamethoxazole-trimethoprim [Bactrim DS] 800-160 mg Tablet 1 tab PO BID RF: 0 No Action (DME) lancets [FreeStyle Lancets] 28 gauge misc See Rx Instructions .ROUTE .MEDSUPPLY Qty: 100 RF: 3 (DME) FreeStyle Test Strip See Rx Instructions .ROUTE .MEDSUPPLY Qty: 50 RF: 3 Discharge Orders: Discharge Order (Routine); Ordered 01/08/21 Ordered By: Gene Rai Diet: advance to usual diet and diabetic diet Activity on Discharge: As tolerated Stand Alone Forms: Patient Portal Discharge page Activity Restrictions/Additional Instructions: daily dry dressing Care Plan Goals: treat cellulitis Health Concerns: cellulitis Plan of Treatment: po antibiotics Discharge Date/Time: 01/08/21 12:48
[2021-01-08 11:20] VITALS: BP 139/77; PULSE 68; RESP 16; TEMP 36.2; O2SAT 95
[2021-01-08 11:24] LABS: Glucose, Whole Blood 163 mg/dL (60-115)
[2021-01-08] MEDS: Doxazosin Mesylate 2 MG TABLET PO (11:43)
[2021-01-08] MEDS: Aspirin Enteric Coated 81 MG TABLET.DR PO (11:43)
[2021-01-08] MEDS: Metoprolol Succinate ER 100 MG TAB.ER.24H 200 MG PO (11:43)
--- NOTE | 2021-01-08 11:55 | P.F2F_ITS ---
Service Date Service Date: 01/08/21 Encounter Date of encounter: 01/08/21 Reasons for Services Reason for care home: wound care Homebound: Leaving the home is medically contraindicated at this time without the asist of a device and/or another person due th the listed conditions above and below. Certification: Based on the above findings, I certify that this patient is confined to the home and needs intermittent care home care, physical therapy and/or speech therapy, or continues to need occupational therapy. The patient is under my care, and I have initiated the establishment of the plan of care. The patient will be followed by a physician who will periodically review the plan of care.
--- NOTE | 2021-01-08 13:06 | MHC.CM.PN ---
Pt will DC today with a referral to [facility] for wound monitoring and daily dry dressing changes. [facility] pt directly to ensure he would have someone available to assist as they are unable to do continued daily visits. Pt reports he will be going to stay with a lady friend at [address] [place] [address] in [place] upon DC and she will be able to assist. [facility] will self arrange [facility]
== END 2021-01-08 12:48 | disposition home health service (06) | DRG 603 ==
LOC: HO.ED 14:16 → HO.EDOVER 18:58 → HO.S3 19:20
PROVIDERS: Nurse Practitioner Acute Care; Physician Assistant; Admitting Provider Internal Medicine; Emergency Provider Emergency Medicine; PCP Internal Medicine Sports Medicine; Visit Provider Internal Medicine
DX: L02.414 Cutaneous abscess of left upper limb (principal); N40.0 Benign prostatic hyperplasia without lower urinary tract symptoms; L03.114 Cellulitis of left upper limb; I10 Essential (primary) hypertension; E11.628 Type 2 diabetes mellitus with other skin complications; E78.5 Hyperlipidemia, unspecified; E66.9 Obesity, unspecified; Z68.31 Body mass index [BMI] 31.0-31.9, adult; Z20.822 Contact with and (suspected) exposure to COVID-19; Z87.442 Personal history of urinary calculi; Z79.52 Long term (current) use of systemic steroids; Z79.82 Long term (current) use of aspirin; Z79.84 Long term (current) use of oral hypoglycemic drugs; Z79.899 Other long term (current) drug therapy
CPT/HCPCS: 36415; 73080; 73090; 80048; 80053; 82947; 83605; 85025; 85610; 85652; 85730; 86140; 87040; 87081; 87635; 87640; 87641; 94640; 96365; 96366; 96368; 99285; J1650; J2543; J3370

== ENCOUNTER 2021-01-13 08:56 | Outpatient (RCR) | payer MEDICARE, OTHER, SELFPAY | END 2021-02-26 11:34 | disposition home or self-care (01) | LOC: HO.WCC 08:56 | PROVIDERS: Visit Provider Physician Assistant | DX: L98.495 Non-pressure chronic ulcer of skin of other sites with muscle involvement without evidence of necrosis (principal); L02.434 Carbuncle of left upper limb; L02.414 Cutaneous abscess of left upper limb; Z79.2 Long term (current) use of antibiotics | CPT/HCPCS: 11042; 17250; 87071; 87205; 99212 ==

== ENCOUNTER 2021-12-16 17:30 | Outpatient (REF) | payer MEDICARE, OTHER, SELFPAY | END 2021-12-16 17:31 | disposition home or self-care (01) | LOC: HO.LNP 17:30 | PROVIDERS: Visit Provider Family Medicine | DX: L02.93 Carbuncle, unspecified (principal) | CPT/HCPCS: 87071; 87077; 87186; 87205 ==

== ENCOUNTER 2024-06-24 12:11 | Inpatient (IN) | payer MEDICARE, OTHER, SELFPAY ==
--- NOTE | ~2024-06-24 | US_ITS ---
EXAMINATION: US TRIPLEX UPPER EXTREMITY, LEFT CLINICAL INFORMATION: Erythema and swelling COMPARISON: None available. TECHNIQUE: Color-flow triplex imaging with spectral analysis and compression Doppler was performed on the left upper extremity. FINDINGS: The left internal jugular, subclavian, and axillary veins are patent and free of thrombus. The imaged segment of the left brachiocephalic vein is patent. Spectral doppler waveforms are normal. The brachial, basilic, cephalic, radial, and ulnar veins are patent and compressible. US/US venous duplex UE LT IMPRESSION: No evidence of deep venous thrombosis involving the left upper extremity. Electronically signed by: Kim Tovar MD 06/24/2024 01:26 PM EDT
--- NOTE | ~2024-06-24 | CT_ITS ---
STUDY: CT OF THE UPPER EXTREMITY WITH CONTRAST, LEFT CLINICAL INFORMATION: Abscess, pain COMPARISON: None TECHNIQUE: Multidetector CT angiography was performed from of the left elbow after the administration of 85 mL of Omnipaque 350. Arterial and delayed images were obtained. No contrast reaction reported. Sagittal and coronal reformatted images were obtained on the technologist workstation. After extensive postprocessing on a dedicated 3-D workstation, 3-D reformatted images were uploaded to PACS and reviewed as well. This CT examination was performed using dose optimization techniques as appropriate, variously including the following: *Automated exposure control *Adjustment of mA and/or kV according to patient size (this includes techniques or standardized protocols for targeted exams where dose is matched to indication/reason for exam; i.e. extremities or head) *Use of iterative reconstruction technique DLP: 163 mGy-cm FINDINGS: Within the dorsal aspect of the proximal forearm, there is an ill-defined hypoattenuating area measuring 1.8 x 1.2 x 2.6 cm with peripheral enhancement, likely representing a small abscess versus phlegmon. Additional abscess versus phlegmon overlying the triceps tendon at the level of the olecranon measuring 1 cm. Extensive subcutaneous edema and skin thickening. Subtle cortical erosion is seen at the olecranon (7; 47), for which underlying osteomyelitis is suspected but not well evaluated on this study. Imaged brachial and cephalic veins patent. Brachial artery patent. CT/CT elbow LT w IV con IMPRESSION: 1. At least 2 subcutaneous abscesses within the dorsal aspect of the proximal forearm measuring 2.6 cm and 1 cm. 2. Subtle cortical erosion may represent underlying osteomyelitis. Recommend further evaluation with MRI elbow with contrast, if clinically indicated. Electronically signed by: Juwan Carlos DO 06/24/2024 09:27 PM EDT
--- NOTE | ~2024-06-24 | MR_ITS ---
EXAMINATION: MR ELBOW WITHOUT AND WITH CONTRAST, LEFT CLINICAL INFORMATION: Evaluate for osteomyelitis. Abscess. COMPARISON: CT 06/24/2024 TECHNIQUE: MRI of the elbow was performed before and after the intravenous administration of 9 mL gadavist on a high-field scanner. FINDINGS: Soft tissue defect posterior to the proximal ulna with prominent subcutaneous edema and enhancement compatible with cellulitis. There is an irregularly-shaped complex collection with peripheral enhancement contiguous with the defect measuring up to 1.6 x 2.0 cm in transverse measurements, over a length of approximately 3 cm compatible with sinus tract/phlegmonous change. This abuts the fascia overlying the junction of the anconeus muscle and the ulna. No underlying cortical irregularity or marrow changes to suggest osteomyelitis. There are undersurface partial tears of the common flexor and common extensor tendon origin. The triceps, biceps, and brachialis tendon insertions are intact. Medial and lateral collateral ligaments appear intact. Mild degenerative change at the posterior lateral aspect of the ulnohumeral articulation. No significant joint effusion. MR/MR elbow LT wo/w con IMPRESSION: Posterior soft tissue defect with underlying cellulitis and sinus tract/phlegmon as described. No osteomyelitis. Incidental undersurface partial tears of the common flexor and common extensor tendon origin. Electronically signed by: Levon Johnson MD 06/25/2024 04:32 PM EDT
[2024-06-24 12:22] VITALS: BP 124/61; PULSE 85; RESP 18; TEMP 36.9; O2SAT 92; BMI 31.8
--- NOTE | 2024-06-24 12:22 | ED.UPPEXIN ---
HPI - Extremity Injury (Upper) General Chief Complaint: Wound/Laceration Stated Complaint: l elbow sore Time Seen by Provider: 06/24/24 15:56 Source: patient Mode of arrival: ambulatory Limitations: no limitations History of Present Illness ED Provider: Claudia Martinez PA-C HPI narrative: Patient is a 78 year old assigned male at with a history of MRSA, HTN, and DM presenting to the emergency department today with a left elbow abscess. Patient states that over the last 4 days he has had a left elbow abscess that has gotten progressively larger and last night, it ruptured. Patient states that he had this happen once before and had to be admitted to the hospital for IV antibiotics. Patient denies any dizziness, lightheadedness, abdominal pain, nausea, vomiting, fever, chills, blurry vision, double vision, loss of vision, chest pain, difficulty breathing, shortness of breath, back pain, night sweats, pain with urination, increased urinary frequency, increased urinary urgency, blood in his urine or stool, syncope or a near syncopal episode, recent trauma or falls, bowel incontinence, bladder incontinence, or any other complaints at this time. MD complaint: injury to: left and elbow Onset (ago): day(s) (4) Associated symptoms: denies other symptoms Related Data Home Medications ?Medication ?Instructions ?Recorded ?Confirmed losartan 100 1 tab PO DAILY 08/13/20 01/05/21 mg-hydrochlorothiazide 25 mg tablet metformin 500 mg tablet,extended 1,000 mg PO DAILY 08/13/20 01/05/21 release 24 hr metoprolol succinate 200 mg 200 mg PO DAILY@1200 08/13/20 01/05/21 tablet,extended release 24 hr trazodone 50 mg tablet 50 mg PO BEDTIME 08/13/20 01/05/21 albuterol sulfate 90 mcg/actuation 2 puff inhalation Q4H PRN dyspnea 01/05/21 01/05/21 aerosol inhaler amlodipine 10 mg tablet 10 mg PO DAILY@1700 01/05/21 01/05/21 cholecalciferol (vitamin D3) 25 25 mcg PO DAILY@1700 01/05/21 01/05/21 mcg (1,000 unit) tablet (Vitamin D3) fluticasone propionate 110 1 puff inhalation BID 01/05/21 01/05/21 mcg/actuation HFA aerosol inhaler fluticasone propionate 50 1 spray intranasal BID PRN Allergy 01/05/21 01/05/21 mcg/actuation nasal Symptoms spray,suspension yhproqde-ef-[id number] 300 mcg-K 60 1 tab PO DAILY@1700 01/05/21 01/05/21 mcg-lycop 600 mcg-lutein 300 mcg tablet (Centrum Silver Men) Previous Rx's ?Medication ?Instructions ?Recorded blood sugar diagnostic (FreeStyle #50 ea 08/13/20 Test strips) lancets 28 gauge (FreeStyle #100 ea 08/13/20 Lancets) doxycycline hyclate 100 mg tablet 100 mg PO BID #14 tabs 01/08/21 lovastatin 40 mg tablet 40 mg PO DAILY #90 tabs 04/29/21 doxazosin 2 mg tablet 2 mg PO DAILY@1200 #90 tabs 07/01/21 sulfamethoxazole 800 1 tab PO Q12H 7 days #14 tabs 12/30/21 mg-trimethoprim 160 mg tablet (Bactrim DS) metformin 500 mg tablet,extended 2,000 mg (4 x 500 mg) PO DAILY 01/04/22 release 24 hr #360 tabs aspirin 81 mg tablet,delayed 81 mg PO DAILY #90 tabs 01/10/22 release Allergies Allergy/AdvReac Type Severity Reaction Status Date / Time No Known Allergies Allergy Verified 06/24/24 12:28 Review of Systems Constitutional: Constitutional: Reports no additional constitutional complaints, Denies chills, Denies fever(s) and Denies night sweats Eyes: Eyes: Reports no additional eye complaints, Denies blurry vision, Denies change in vision, Denies diplopia, Denies eye discharge, Denies loss of vision and Denies eye pain ENT: Denies dizziness Cardiovascular: Cardiovascular: Reports no additional cardiovascular complaints, Denies chest pain, Denies lightheadedness, Denies Loss of Consciousness and Denies dyspnea Respiratory: Respiratory: Reports no additional respiratory complaints and Denies dyspnea Gastrointestinal: Gastrointestinal: Reports no additional gastrointestinal complaints, Denies abdominal pain, Denies melena, Denies hematochezia, Denies change in bowel habits and Denies change in stool character Genitourinary: Genitourinary: Reports no additional male genitourinary complaints, Denies hematuria, Denies oliguria, Denies difficulty urinating, Denies dysuria, Denies urinary frequency, Denies urinary hesitancy, Denies urinary incontinence and Denies urinary urgency Musculoskeletal: Musculoskeletal: Reports no additional musculoskeletal complaints, Denies numbness and Denies tingling Comments: left elbow pain, swelling, warmth, redness, discharge Neurologic: Denies dizziness, Denies loss of vision, Denies numbness and Denies tingling Psychiatric: Psychiatric: Reports no additional psychiatric complaints Endocrine: Endocrine: Reports no additional endocrine complaints Hematologic/Lymphatic: Hematologic/Lymphatic: Reports no additional hematologic/lymphatic complaints Allergic/Immunologic: Allergic/Immunologic: Reports no additional allergic/immunologic complaints PMFSH Past Medical History Attestation statement: The following information was validated with the patient. Source: old records reviewed and nursing notes reviewed Medical History BPH (benign prostatic hyperplasia) HLD (hyperlipidemia) Type 2 diabetes mellitus HTN (hypertension) Surgical History History of nephrolithiasis History of cataract surgery History of removal of cyst History of vasectomy Family History Family History Father CVD (cardiovascular disease) Myocardial infarction Mother Liver cancer Pancreatic cancer Son Diabetes Social History Social History Alcohol intake: never Patient Tobacco Use Status: Never used Tobacco Smoked in Last 30 Days: No Use of substances other than those prescribed or required for medical reasons: No Advance Directives: Yes Advance Directives Information Provided: No Advance Directives on File: No Do you have a plan to hurt others: No Plan service: Yes Current occupational status: retired Physical Exam Vital Signs: Vital Signs: Last Vital Signs Temp 98.5 F 06/24/24 20:47 Pulse 72 06/24/24 20:47 Resp 16 06/24/24 20:47 BP 123/52 L 06/24/24 20:47 Pulse Ox 94 06/24/24 20:47 O2 Del Method Room Air 06/24/24 20:47 BMI result Body Mass Index 31.8 Const: General: cooperative, no acute distress, alert and awake Nutritional Appearance: well nourished Orientation/consciousness: patient oriented x3 Limitations: no limitations HEENT: Head: Yes normal to inspection and Yes atraumatic Ears: hearing grossly normal bilaterally and external ears normal General nose exam: Normal external nose present, no nasal discharge noted and no epistaxis Face and sinus: Yes normal facial exam, No abrasion and No laceration Mouth: Normal oral and palatal mucosa present, no drooling and no muffled voice Eyes: General: appearance normal, both eyes and all related structures Periorbital: periorbital findings normal Eyelids: Yes eyelids normal Conjunctivae: conjunctivae normal Pupils: Equal, round and reactive pupils present EOM: EOMs intact bilaterally Neck: Neck: Yes normal visual inspection, Yes full ROM and Yes no lymphadenopathy Chest: Chest palpation & inspection: normal inspection of the chest Resp: Effort & Inspection: normal respiratory effort and able to speak in complete sentences GI: Inspection: Yes normal to inspection Neuro: General: patient oriented x3 and moves all extremities Cranial nerves: Yes Equal, round and reactive pupils present Cognition (Neuro): normal cognition Extrem: Other: General: Yes full ROM and Yes capillary refill normal Psych: Appearance: grossly normal Mental Status: mental status grossly normal Affect: normal affect Attitude: cooperative Thought process: Normal thought process present Thought content: Normal thought content present Insight: Good insight present (Psych) Course Course Course Narrative: This is a Rapid Medical Exam performed in triage by Enriqueta Del Valle PA-C. Full HPI, ROS and PE to be performed by primary ED provider. 78 yo F w/PMHx MRSA, DM presenting to the ED c/o L elbow pain and swelling x 4-5 days. denies injury/fall, fever, chills. denies draining at home PE: +L elbow with draining abscess w/surrounding erythema & swelling Plan: Labs, lactic/blood cx, US Medications Administered Discontinued Medications Generic Name Dose Route Start Last Admin Trade Name Freq PRN Reason Stop Dose Admin Piperacillin Sod/Tazobactam 50 mls @ 100 mls/hr 06/24/24 16:33 06/24/24 17:35 Sod 3.375 gm/ Sodium Chloride IV 06/24/24 17:02 Infused ONCE ONE Infusion Vancomycin HCl 2,000 mg in 500 mls @ 250 mls/hr 06/24/24 16:42 06/24/24 19:07 Vancomycin/Ns IV 06/24/24 18:41 Infused ONCE ONE Infusion Iohexol 100 ml 06/24/24 19:02 06/24/24 19:04 Iohexol 350 Mg/Ml 100 Ml Infus..Btl IV 06/24/24 19:03 85 ml ONCE ONE Administration Medical Decision Making Medical Decision Making [facility] Narrative: Patient is a 78 year old assigned male at with a history of MRSA and DM presenting to the emergency department today with a left elbow abscess. Patient's physical exam was as noted in the physical exam portion of this note. Patient's blood work showed an elevated WBC count of 12, ESR of 79, and CRP of 10.30. Patient's left elbow CT showed at least 2 abscesses and possible osteomyelitis. Patient's clinical presentation is not consistent with sepsis (@2200). Patient was given IV Zosyn and Vancomycin. I spoke to the hospitalist team who agreed to admission. I explained my physical exam findings as well as all test results to the patient. I answered all questions asked by the patient. Patient verbalized agreement and understanding with this treatment plan and admission. Differential Diagnosis Differential Diagnoses: The differential diagnosis associated with the presentation includes Osteomyelitis Abscess of the elbow Admission/Observation Consideration of admission/observation: Escalation of care including admission/observation considered Patient admitted. Lab Data [facility] Lab Attestation statement: I reviewed the patient's lab results. My interpretation of these results are in the MDM Rationale portion of this note. 06/24/24 13:23 06/24/24 13:23 Labs: Lab Results 06/24/24 06/24/24 Range/Units 13:23 15:54 WBC 12.0 H (4.8-10.8) X10*3/uL RBC 4.18 L (4.60-5.80) X10*6/uL Hgb 13.5 L (14.0-18.0) g/dl Hct 39.5 L (42.0-52.0) % MCV 94.5 (80.0-98.0) fL MCH 32.3 (27.0-33.0) pg MCHC 34.2 (31.0-36.0) g/dl RDW 13.5 (11.0-16.0) % Plt Count 218 (160-400) X10*3/uL MPV 9.0 L (9.4-12.4) fL Immature Gran % (Auto) 0.5 H (0.0-0.4) % Neut % (Auto) 83.1 H (45-73) % Lymph % (Auto) 6.8 L (20-40) % [place] % (Auto) 8.9 (2-11) % Eos % (Auto) 0.3 (0-4) % Baso % (Auto) 0.4 (0-2) % Lymph # (Auto) 0.8 L (1.2-4.9) X10*3/uL [place] # (Auto) 1.1 (0.1-1.2) X10*3/uL Eos # (Auto) 0.0 (0.0-0.4) X10*3/uL Baso # (Auto) 0.1 (0.0-0.2) X10*3/uL Abs Immat Gran (auto) 0.06 H (0.00-0.03) X10*3/uL Absolute Neuts (auto) 10.0 H (2.0-8.3) x10*3/uL Absolute Nucleated RBC 0.000 (0.0-0.012) X10*3/uL Nucleated RBC % (auto) 0.0 (0.0-0.2) /100WBC ESR 79 H (0-15) MM/HR Hold Purple Top SEE NOTE PT 13.6 H (11.1-13.3) SEC INR 1.1 (0.9-1.1) Sodium 136 (135-145) mmol/L Potassium 4.3 (3.3-5.1) mmol/L Chloride 103 (96-108) mmol/L Carbon Dioxide 18 L (22-29) mmol/L Anion Gap 19 (12-20) BUN 32 H (9-16) mg/dL Creatinine 1.19 (0.5-1.4) mg/dL Estim Creat Clear Calc 51.8 Estimated GFR 59 Random Glucose 222 H (60-115) mg/dL Lactic Acid 1.6 (0.5-2.0) mmol/L Calcium 10.7 H D (8.4-10.2) mg/dL Total Bilirubin 0.6 (0.0-1.0) mg/dL Direct Bilirubin 0.2 (0.0-0.5) mg/dL AST 16 (5-37) U/L ALT 19 (0-40) U/L Alkaline Phosphatase 88 (39-117) U/L C-Reactive Protein 10.30 H (< or = 0.50) mg/dL Total Protein 7.7 (6.5-8.0) g/dL Albumin 4.1 (3.5-5.0) g/dL Independent Interpretation I performed an independent interpretation of an: Ultrasound and CT Scan Interpretation: My interpretation is in agreement with the radiologist's impression of these imaging studies. EXAMINATION: US TRIPLEX UPPER EXTREMITY, LEFT CLINICAL INFORMATION: Erythema and swelling COMPARISON: None available. TECHNIQUE: Color-flow triplex imaging with spectral analysis and compression Doppler was performed on the left upper extremity. FINDINGS: The left internal jugular, subclavian, and axillary veins are patent and free of thrombus. The imaged segment of the left brachiocephalic vein is patent. Spectral doppler waveforms are normal. The brachial, basilic, cephalic, radial, and ulnar veins are patent and compressible. US/US venous duplex UE LT IMPRESSION: No evidence of deep venous thrombosis involving the left upper extremity. Electronically signed by: Kim Tovar MD 06/24/2024 01:26 PM EDT Dictated By: Kim Tovar MD Signed By: Electronically signed by Kim Tovar MD 06/24/24 1326 STUDY: CT OF THE UPPER EXTREMITY WITH CONTRAST, LEFT CLINICAL INFORMATION: Abscess, pain COMPARISON: None TECHNIQUE: Multidetector CT angiography was performed from of the left elbow after the administration of 85 mL of Omnipaque 350. Arterial and delayed images were obtained. No contrast reaction reported. Sagittal and coronal reformatted images were obtained on the technologist workstation. After extensive postprocessing on a dedicated 3-D workstation, 3-D reformatted images were uploaded to PACS and reviewed as well. This CT examination was performed using dose optimization techniques as appropriate, variously including the following: *Automated exposure control *Adjustment of mA and/or kV according to patient size (this includes techniques or standardized protocols for targeted exams where dose is matched to indication/reason for exam; i.e. extremities or head) *Use of iterative reconstruction technique DLP: 163 mGy-cm FINDINGS: Within the dorsal aspect of the proximal forearm, there is an ill-defined hypoattenuating area measuring 1.8 x 1.2 x 2.6 cm with peripheral enhancement, likely representing a small abscess versus phlegmon. Additional abscess versus phlegmon overlying the triceps tendon at the level of the olecranon measuring 1 cm. Extensive subcutaneous edema and skin thickening. Subtle cortical erosion is seen at the olecranon (7; 47), for which underlying osteomyelitis is suspected but not well evaluated on this study. Imaged brachial and cephalic veins patent. Brachial artery patent. CT/CT elbow LT w IV con IMPRESSION: 1. At least 2 subcutaneous abscesses within the dorsal aspect of the proximal forearm measuring 2.6 cm and 1 cm. 2. Subtle cortical erosion may represent underlying osteomyelitis. Recommend further evaluation with MRI elbow with contrast, if clinically indicated. Electronically signed by: Juwan Carlos DO 06/24/2024 09:27 PM EDT Dictated By: uJwan Carlos Signed By: Electronically signed by Juwan Carlos 06/24/242126 Radiology Impression Discussion of test interpretation with radiology: I have reviewed the radiologist's reading. Chronic Conditions Patient?s care impacted by: Diabetes Critical Care Time Critical Care Time Critical Care Time: Yes Total Critical Care Time: 64 Attestation: I spent 64 minutes of Critical Care Time with this patient. This does not include time spent on separately reported billable procedures. Discharge Plan Discharge Clinical Impression: Abscess of elbow, Osteomyelitis Patient Disposition: Admitted As Inpatient
[2024-06-24 13:31] LABS: MANUAL DIFF FLAG NO
[2024-06-24 13:32] LABS: Basophils Absolute Auto 0.1 X10*3/uL (0.0-0.2); Basophils Percent Auto 0.4 % (0-2); Eosinophils Percent Auto 0.3 % (0-4); Hematocrit 39.5 % (42.0-52.0); Hemoglobin 13.5 g/dl (14.0-18.0); Imm Gran Abs Auto 0.06 X10*3/uL (0.00-0.03); Imm Gran Pct Auto 0.5 % (0.0-0.4); Lymphocytes Absolute Auto 0.8 X10*3/uL (1.2-4.9); Lymphocytes Percent Auto 6.8 % (20-40); Mean Corpuscular HGB Conc 34.2 g/dl (31.0-36.0); Mean Corpuscular Hemoglobin 32.3 pg (27.0-33.0); Mean Corpuscular Volume 94.5 fL (80.0-98.0); Monocytes Absolute Auto 1.1 X10*3/uL (0.1-1.2); Monocytes Percent Auto 8.9 % (2-11); Neutrophils Percent Auto 83.1 % (45-73); Platelet Count 218 X10*3/uL (160-400); Red Blood Count 4.18 X10*6/uL (4.60-5.80); Red Cell Distribution Width 13.5 % (11.0-16.0)
[2024-06-24 13:38] LABS: INTERNATIONAL NORM RATIO 1.1 (0.9-1.1); Prothrombin Time 13.6 SEC (11.1-13.3)
[2024-06-24 13:46] LABS: Lactic Acid 1.6 mmol/L (0.5-2.0)
[2024-06-24 14:00] VITALS: BP 155/66; PULSE 74; RESP 18; TEMP 37.1; O2SAT 95
[2024-06-24 16:00] VITALS: BP 131/64; PULSE 74; RESP 18; TEMP 36.1; O2SAT 94
[2024-06-24 16:11] LABS: Alanine Aminotransferase 19 U/L (0-40); Albumin Level 4.1 g/dL (3.5-5.0); Alkaline Phosphatase 88 U/L (39-117); Anion Gap 19 (12-20); Aspartate Amino Transferase 16 U/L (5-37); Bilirubin Direct 0.2 mg/dL (0.0-0.5); Bilirubin Total 0.6 mg/dL (0.0-1.0); Blood Urea Nitrogen 32 mg/dL (9-16); Calcium 10.7 mg/dL (8.4-10.2); Carbon Dioxide 18 mmol/L (22-29); Chloride 103 mmol/L (96-108); Creatinine Clr Calc Pharmacy 51.8; Estimated Glomerular Filt Rate 59; Glucose Random 222 mg/dL (60-115); Potassium 4.3 mmol/L (3.3-5.1); Sodium 136 mmol/L (135-145); Total Protein 7.7 g/dL (6.5-8.0)
[2024-06-24] MEDS: Piperacillin Sodium/Tazobactam 3.375 GM in 0.9 % Sodium Chloride 50 ML IV (17:05)
[2024-06-24] MEDS: vancomycin/NS 2,000 MG/500 ML PLAST..BAG 250 MG IV (17:07)
--- NOTE | 2024-06-24 17:08 | PC.NURSE ---
20gIV placed in the right forearm - patent/intact. abx administered per provider order. pt waiting to go to CT at this time. resting comfortably in no apparent distress. no sob/wob noted. respirations even/unlabored. partner bedside for support. plan of care ongoing. call alberts placed within reach.
[2024-06-24 17:49] LABS: Erythrocyte Sedimentation Rate 79 MM/HR (0-15)
--- NOTE | 2024-06-24 18:53 | PC.NURSE ---
pt to CT in no apparent distress.
[2024-06-24] MEDS: iohexoL 350 MG/ML 100 ML INFUS..BTL IV (19:04)
[2024-06-24 19:13] VITALS: BP 147/68; PULSE 74; RESP 16; TEMP 36.6; O2SAT 94
[2024-06-24 20:47] VITALS: BP 123/52; PULSE 72; RESP 16; TEMP 36.9; O2SAT 94
--- NOTE | 2024-06-24 22:01 | P.HPHOSP_ITS ---
History of Present Illness Date of Service: 06/24/24 Chief Complaint: arm infection This is a 78-year-old male with pertinent history of hypertension, edl-jhwaewa-obgvwncml diabetes mellitus, mixed hyperlipidemia, mood disorder, history of MRSA who presents to the emergency department for concerns of left arm infection. Of note, patient was admitted in 2020 for left forearm cellulitis with abscess. Patient states he noticed swelling on his left forearm below the left elbow 4 days prior to presentation. It has been progressive over the last few days and it ruptured on the day of presentation draining pus. He does not remember how it started, thinks he may have bumped his elbow on a door. No fever, chills, chest discomfort, palpitations, shortness of breath, abdominal pain, changes in urinary or bowel habits. In the emergency department, imaging with abscess and possible osteomyelitis. Patient was initiated on empiric IV antibiotics. Review of Systems 2 Constitutional: Constitutional: Reports no additional constitutional complaints Cardiovascular: Cardiovascular: Reports no additional cardiovascular complaints Respiratory: Respiratory: Reports no additional respiratory complaints Gastrointestinal: Gastrointestinal: Reports no additional gastrointestinal complaints Genitourinary: Genitourinary: Reports no additional male genitourinary complaints [facility] Medical History BPH (benign prostatic hyperplasia) HLD (hyperlipidemia) Type 2 diabetes mellitus HTN (hypertension) Family History Father CVD (cardiovascular disease) Myocardial infarction Mother Liver cancer Pancreatic cancer Son Diabetes Surgical History History of nephrolithiasis History of cataract surgery History of removal of cyst History of vasectomy Social History Alcohol intake: never Patient Tobacco Use Status: Never used Tobacco Smoked in Last 30 Days: No Use of substances other than those prescribed or required for medical reasons: No Advance Directives: Yes Advance Directives Information Provided: No Advance Directives on File: No Do you have a plan to hurt others: No Plan service: Yes Current occupational status: retired Meds Allergies Allergy/AdvReac Type Severity Reaction Status Date / Time No Known Allergies Allergy Verified 06/24/24 12:28 Home Medications ?Medication ?Instructions ?Recorded ?Confirmed ?Last Taken ?Type losartan 100 1 tab PO DAILY 08/13/20 01/05/21 01/05/21 History mg-hydrochlorothiazide 25 mg tablet metformin 500 mg tablet,extended 1,000 mg PO DAILY 08/13/20 01/05/21 01/05/21 History release 24 hr metoprolol succinate 200 mg 200 mg PO DAILY@1200 08/13/20 01/05/21 01/05/21 History tablet,extended release 24 hr trazodone 50 mg tablet 50 mg PO BEDTIME 08/13/20 01/05/21 01/04/21 History albuterol sulfate 90 mcg/actuation 2 puff inhalation Q4H PRN dyspnea 01/05/21 01/05/21 Unknown History aerosol inhaler amlodipine 10 mg tablet 10 mg PO DAILY@1700 01/05/21 01/05/21 01/04/21 History cholecalciferol (vitamin D3) 25 25 mcg PO DAILY@1700 01/05/21 01/05/21 01/04/21 History mcg (1,000 unit) tablet (Vitamin D3) fluticasone propionate 110 1 puff inhalation BID 01/05/21 01/05/21 01/05/21 History mcg/actuation HFA aerosol inhaler fluticasone propionate 50 1 spray intranasal BID PRN Allergy 01/05/21 01/05/21 Unknown History mcg/actuation nasal Symptoms spray,suspension iysutpbv-jm-rsrlg 300 mcg-K 60 1 tab PO DAILY@1700 01/05/21 01/05/21 01/04/21 History mcg-lycop 600 mcg-lutein 300 mcg tablet (Centrum Silver Men) Physical Exam 2 Vital Signs and Narrative: Vital Signs: Last Vital Signs Temp 98.5 F 06/24/24 20:47 Pulse 72 06/24/24 20:47 Resp 16 06/24/24 20:47 BP 123/52 L 06/24/24 20:47 Pulse Ox 94 06/24/24 20:47 O2 Del Method Room Air 06/24/24 20:47 BMI result Body Mass Index 31.8 Middle-aged male lying in bed in no distress Neck supple, no JVD Regular rate and rhythm, S1-S2 heard Regular breath sounds bilaterally, no wheezing or crackles appreciated Abdomen soft nontender, no guarding, no rigidity Patient is awake, alert and oriented to self, place, time and person ; no focal motor deficit Psych: Normal mood Area of erythema, fluctuance, warmth below left elbow draining foul-smelling pus as pictured below Skin: Other: Results Labs 06/24/24 13:23 06/24/24 13:23 Labs: Laboratory Results - last 24 hr 06/24/24 06/24/24 13:23 15:54 MCV 94.5 MCH 32.3 MCHC 34.2 RDW 13.5 Plt Count 218 MPV 9.0 L Immature Gran % (Auto) 0.5 H Neut % (Auto) 83.1 H Lymph % (Auto) 6.8 L [place] % (Auto) 8.9 Eos % (Auto) 0.3 Baso % (Auto) 0.4 Lymph # (Auto) 0.8 L [place] # (Auto) 1.1 Eos # (Auto) 0.0 Baso # (Auto) 0.1 Abs Immat Gran (auto) 0.06 H Absolute Neuts (auto) 10.0 H Absolute Nucleated RBC 0.000 Nucleated RBC % (auto) 0.0 ESR 79 H Hold Purple Top SEE NOTE PT 13.6 H INR 1.1 Anion Gap 19 Estim Creat Clear Calc 51.8 Estimated GFR 59 Random Glucose 222 H Lactic Acid 1.6 Calcium 10.7 H D Total Bilirubin 0.6 Direct Bilirubin 0.2 AST 16 ALT 19 Alkaline Phosphatase 88 C-Reactive Protein 10.30 H Total Protein 7.7 Albumin 4.1 Imaging Radiologist's Impressions: Impressions Venous Duplex 06/24/24 12:45 IMPRESSION: No evidence of deep venous thrombosis involving the left upper extremity. Electronically signed by: Kim Tovar MD 06/24/2024 01:26 PM EDT RP Elbow CT 06/24/24 18:53 IMPRESSION: 1. At least 2 subcutaneous abscesses within the dorsal aspect of the proximal forearm measuring 2.6 cm and 1 cm. 2. Subtle cortical erosion may represent underlying osteomyelitis. Recommend further evaluation with MRI elbow with contrast, if clinically indicated. Electronically signed by: Juwan Carlos DO 06/24/2024 09:27 PM EDT RP Assessment and Plan (1) Abscess of elbow: Status: Acute Plan This is a 78-year-old male with pertinent history of hypertension, oua-oynhfnx-jnmscotgs diabetes mellitus, mixed hyperlipidemia, mood disorder, history of MRSA who presents to the emergency department for concerns of left arm infection. #. Left arm purulent cellulitis with abscess: Will admit patient with empiric IV antibiotics. Imaging concerning for osteomyelitis. Obtaining MRI to delineate underlying anatomy. Also consulting general surgery and wound care. No sepsis #. Efh-zyevsvb-xpcmyktte diabetes mellitus with hyperglycemia: Initiating Accu-Cheks with sliding scale insulin #. Hypertension: Continue home antihypertensives #. Mixed hyperlipidemia: On statin #. Mood disorder: Continue home mood stabilizers Med rec pending DVT prophylaxis: Lovenox Full code Admit as inpatient and will require two night minimum hospital stay for IV antibiotics (as above), which is not possible in a lesser acute setting. Quality Stroke Does the patient have a stroke diagnosis?: No VTE Prior VTE?: No VTE Risk Level:: Medical - moderate - high VTE Device Contraindication: Treatment Not Indicated VTE Drug Contraindication: N/A - Med Ordered
--- NOTE | 2024-06-24 22:33 | PHA.PROG ---
Admission Date/Time: June 24, 2024 21:59 Indication: skin Weight in k.8 kg Serum Creatinine - Last 168 Hours 06/24/24 13:23 Creatinine 1.19 Estimated CrCl and GFR - Last 168 Hours 06/24/24 13:23 Estim Creat Clear Calc 51.8 Estimated GFR 59 Vancomycin Loading Dose: 2000 Current Vancomycin Dosing Regimen: 1500 q 24h Vancomycin Monitoring using AUC goal of 400 - 600 range with trough as surrogate marker: 556 Date and Time for next Vancomycin Level to be drawn: 06/26 @ 1500 Pharmacist Comments on Vancomycin Plan: Vancomycin dosing will take advantage of [employer] as a clinical decision support tool that uses Bayesian modeling to calculate individual patient's pharmacokinetic parameters and forecast the patient's drug concentration time course with the target goal AUC 24 range of 400 - 600 mg/L/hr.
[2024-06-24] MEDS: Piperacillin Sodium/Tazobactam 4.5 GM in 0.9 % Sodium Chloride 100 ML IV (23:10)
[2024-06-24] MEDS: Enoxaparin Sodium 40 MG/0.4 ML SYRINGE SUBCUT (23:11)
[2024-06-25] MEDS: 0.9 % Sodium Chloride Flush 3 ML SYRINGE IVFLUSH ×2 (00:01→23:28)
[2024-06-25] MEDS: Lactated Ringers 1,000 ML 999 ML IV (00:01)
[2024-06-25 03:41] VITALS: BP 121/58; PULSE 67; RESP 16; TEMP 36.7; O2SAT 93
--- NOTE | 2024-06-25 03:46 | MHC.EDTECH ---
This tech took over care of patient at 0330AM,rounds and vitals completed,patient was given a can of diet angelina feng,patient is resting comfortable at this time,call alberts in reach
--- NOTE | 2024-06-25 03:57 | MHC.EDTECH ---
Patient ambulated to the bathroom with a steady gait with cane.
[2024-06-25] MEDS: Piperacillin Sodium/Tazobactam 4.5 GM in 0.9 % Sodium Chloride 100 ML IV ×4 (04:06→21:58)
[2024-06-25 05:08] LABS: MANUAL DIFF FLAG NO
[2024-06-25 05:09] LABS: Basophils Absolute Auto 0.1 X10*3/uL (0.0-0.2); Basophils Percent Auto 0.5 % (0-2); Eosinophils Absolute Auto 0.2 X10*3/uL (0.0-0.4); Eosinophils Percent Auto 1.7 % (0-4); Hemoglobin 12.1 g/dl (14.0-18.0); Imm Gran Abs Auto 0.04 X10*3/uL (0.00-0.03); Imm Gran Pct Auto 0.4 % (0.0-0.4); Lymphocytes Absolute Auto 1.3 X10*3/uL (1.2-4.9); Mean Corpuscular HGB Conc 34.6 g/dl (31.0-36.0); Mean Corpuscular Hemoglobin 32.4 pg (27.0-33.0); Mean Corpuscular Volume 93.8 fL (80.0-98.0); Mean Platelet Volume 8.6 fL (9.4-12.4); Monocytes Absolute Auto 0.9 X10*3/uL (0.1-1.2); Monocytes Percent Auto 9.2 % (2-11); Neutrophils Absolute Auto 7.5 x10*3/uL (2.0-8.3); Neutrophils Percent Auto 75.2 % (45-73); Platelet Count 211 X10*3/uL (160-400); Red Blood Count 3.73 X10*6/uL (4.60-5.80); Red Cell Distribution Width 13.5 % (11.0-16.0)
[2024-06-25 05:23] LABS: Anion Gap 13 (12-20); Blood Urea Nitrogen 19 mg/dL (9-16); Calcium 9.5 mg/dL (8.4-10.2); Carbon Dioxide 22 mmol/L (22-29); Chloride 106 mmol/L (96-108); Creatinine Clr Calc Pharmacy 76.1; Estimated Glomerular Filt Rate > 60; Glucose Random 128 mg/dL (60-115); Potassium 3.9 mmol/L (3.3-5.1); Sodium 137 mmol/L (135-145)
[2024-06-25 07:11] LABS: Glucose, Whole Blood 127 mg/dL (60-115)
[2024-06-25] MEDS: Benzonatate 100 MG CAPSULE 200 MG PO ×2 (07:26→22:27)
[2024-06-25 08:00] VITALS: BP 140/63; PULSE 75; RESP 18; TEMP 36.6; O2SAT 94
--- NOTE | 2024-06-25 08:31 | PM.CNGS ---
History of Present Illness Consult details Consult date: 06/25/24 Requesting physician: Erick Rodriguez Narrative: 78-year-old male patient with a recurrent abscess of the left arm located just below the elbow. He has a past history of diabetes mellitus type 2, hypertension, mixed hyperlipidemia and a previous history of MRSA. He had a previous admission in 2020 for a similar left forearm cellulitis with abscess. He feels the current abscess is in the same location but he denies any recent trauma or other inciting event. He reports increased pain, redness and swelling until the day of admission when the wound opened and a large amount of pus drained. He now reports the pain is improved and now notes increased bloody discharge from the wound. He denies any fever, chills, nausea, vomiting, chest pain or shortness of breath. He subsequently presented to the emergency department has been admitted to the hospitalist service for further management. A CT of the left elbow revealed 2 possible abscess collections or phlegmon. He is awaiting an elbow and forearm MRI to further evaluate. This morning CBC reveals a normal WBC of 10. Review of Systems Review of Systems: Yes all other systems are reviewed and are negative Constitutional: Constitutional: Denies chills, Denies fever(s), Denies headache(s), Denies poor appetite and Denies weakness ENT: Denies headache(s) Cardiovascular: Cardiovascular: Denies chest pain, Denies irregular heart rhythm, Denies palpitations and Denies dyspnea Respiratory: Respiratory: Denies cough, Denies excessive phlegm production and Denies dyspnea Gastrointestinal: Gastrointestinal: Denies abdominal pain, Denies bloating, Denies change in bowel habits, Denies constipation, Denies heartburn, Denies diarrhea, Denies nausea and Denies vomiting Genitourinary: Genitourinary: Denies difficulty urinating and Denies urinary frequency Musculoskeletal: Musculoskeletal: Reports as per HPI, Denies back pain, Reports arthralgias, Reports joint swelling, Denies muscle weakness and Denies numbness Integumentary/Breasts: Skin/Breast: Denies changing lesions and Denies unusual bruising Neurologic: Denies headache(s), Denies numbness, Denies paresthesias and Denies weakness Psychiatric: Psychiatric: Denies anxiety and Denies depression Endocrine: Endocrine: Denies palpitations Hematologic/Lymphatic: Hematologic/Lymphatic: Denies lymphadenopathy PMFSH Past Medical History Medical History BPH (benign prostatic hyperplasia) HLD (hyperlipidemia) Type 2 diabetes mellitus HTN (hypertension) Family History Family History Father CVD (cardiovascular disease) Myocardial infarction Mother Liver cancer Pancreatic cancer Son Diabetes Surgical History Surgical History History of nephrolithiasis History of cataract surgery History of removal of cyst History of vasectomy Social History Social History Alcohol intake: never Patient Tobacco Use Status: Never used Tobacco Smoked in Last 30 Days: No Use of substances other than those prescribed or required for medical reasons: No Advance Directives: Yes Advance Directives Information Provided: No Advance Directives on File: No Do you have a plan to hurt others: No Plan Nutrition Risks: No Nutritional Risk service: Yes Current occupational status: retired [employer] Allergies Allergy/AdvReac Type Severity Reaction Status Date / Time No Known Allergies Allergy Verified 06/24/24 12:28 Active Medications: Current Medications Acetaminophen (Acetaminophen 325 Mg Tablet) 650 mg PO Q6H PRN PRN Reason: Pain, Mild (Pain Scale 1-3), fever or headache Benzonatate (Benzonatate 100 Mg Capsule) 200 mg PO TID PRN PRN Reason: Cough Last Admin: 06/25/24 07:26 Dose: 200 mg Calcium Carbonate (Calcium Carbonate 750 Mg Tab.Chew) 750 mg PO Q4H PRN PRN Reason: Heartburn Enoxaparin Sodium (Enoxaparin Sodium 40 Mg/0.4 Ml Syringe) 40 mg SUBCUT Q24H [facility] Last Admin: 06/24/24 23:11 Dose: 40 mg Glucose (Glucose Gel 15 Gm Gel..Gram.) 15 gm PO Q15M PRN; Protocol PRN Reason: per Hypoglycemia Standing Ord. Piperacillin Sod/Tazobactam (Sod 4.5 gm/ Sodium Chloride) 100 mls @ 200 mls/hr IV Q6H [facility] Last Infusion: 06/25/24 05:17 Dose: Infused Dextrose (D10) 250 mls @ 750 mls/hr IV Q15M PRN; Protocol PRN Reason: per Hypoglycemia Standing Ord. Vancomycin HCl 1,500 mg/ (Sodium Chloride) 500 mls @ 333.333 mls/hr IV Q24H [facility] Insulin Human Lispro (Insulin Lispro 100 Unit/Ml 3 Ml Vial) 0 unit SUBCUT QIDACHS [facility]; Protocol Last Admin: 06/25/24 07:14 Dose: Not Given Magnesium Hydroxide (Milk Of Magnesia 30 Ml Oral.Susp) 30 ml PO DAILY PRN PRN Reason: Constipation Melatonin (Melatonin 3 Mg Tablet) 6 mg PO BEDTIME PRN PRN Reason: Insomnia Ondansetron HCl (Ondansetron Hcl 4 Mg/2 Ml Vial) 4 mg IVPUSH Q8H PRN PRN Reason: Nausea and Vomiting Pharmacy Consult (Consult Rx Vancomycin Dosing) 1 each MISCELLANE DAILY PRN PRN Reason: Consult order Sodium Chloride (0.9 % Sodium Chloride Flush 3 Ml Syringe) [facility] Last Admin: 06/25/24 07:14 Dose: Not Given Home Medications ?Medication ?Instructions ?Recorded ?Confirmed ?Last Taken ?Type losartan 100 1 tab PO DAILY 08/13/20 01/05/21 01/05/21 History mg-hydrochlorothiazide 25 mg tablet metformin 500 mg tablet,extended 1,000 mg PO DAILY 08/13/20 01/05/21 01/05/21 History release 24 hr metoprolol succinate 200 mg 200 mg PO DAILY@1200 08/13/20 01/05/21 01/05/21 History tablet,extended release 24 hr trazodone 50 mg tablet 50 mg PO BEDTIME 08/13/20 01/05/21 01/04/21 History albuterol sulfate 90 mcg/actuation 2 puff inhalation Q4H PRN dyspnea 01/05/21 01/05/21 Unknown History aerosol inhaler amlodipine 10 mg tablet 10 mg PO DAILY@1700 01/05/21 01/05/21 01/04/21 History cholecalciferol (vitamin D3) 25 25 mcg PO DAILY@1700 01/05/21 01/05/21 01/04/21 History mcg (1,000 unit) tablet (Vitamin D3) fluticasone propionate 110 1 puff inhalation BID 01/05/21 01/05/21 01/05/21 History mcg/actuation HFA aerosol inhaler fluticasone propionate 50 1 spray intranasal BID PRN Allergy 01/05/21 01/05/21 Unknown History mcg/actuation nasal Symptoms spray,suspension [id number] 300 mcg-K 60 1 tab PO DAILY@1700 01/05/21 01/05/21 01/04/21 History mcg-lycop 600 mcg-lutein 300 mcg tablet (Centrum Silver Men) Physical Exam Vital Signs: Vital Signs: Last Vital Signs Temp 98 F 06/25/24 08:00 Pulse 75 06/25/24 08:00 Resp 18 06/25/24 08:00 BP 140/63 H 06/25/24 08:00 Pulse Ox 94 06/25/24 08:00 O2 Del Method Room Air 06/25/24 08:00 BMI result Body Mass Index 31.8 Const: General: cooperative and no acute distress Nutritional Appearance: well nourished Orientation/consciousness: patient oriented x3 Limitations: no limitations HEENT: Head: Yes normocephalic and Yes atraumatic Ears: hearing grossly normal bilaterally Resp: Effort & Inspection: normal respiratory effort, no audible wheezes, no cough and no respiratory distress Cardio: Jugular venous distension: no JVD GI: Inspection: Yes normal to inspection Skin: Other: Warm, dry, no rash Neuro: General: patient oriented x3 Extrem: Other: Left elbow with an area of erythema and a central area located along the dorsal surface just below the elbow measuring approximately 2 cm in diameter. The areas open with no necrotic tissue and mainly bloody discharge. The lower forearm is edematous possibly from the dressing constricting the arm. No palpable fluctuance is appreciated near the elbow or around the open wound. General: Yes no clubbing, cyanosis or edema Results Labs 06/25/24 04:57 06/25/24 04:57 Labs: Abnormal lab results 06/24/24 06/24/24 06/25/24 Range/Units 13:23 15:54 04:57 WBC 12.0 H (4.8-10.8) X10*3/uL RBC 4.18 L 3.73 L (4.60-5.80) X10*6/uL Hgb 13.5 L 12.1 L (14.0-18.0) g/dl Hct 39.5 L 35.0 L (42.0-52.0) % MPV 9.0 L 8.6 L (9.4-12.4) fL Immature Gran % (Auto) 0.5 H (0.0-0.4) % Neut % (Auto) 83.1 H 75.2 H (45-73) % Lymph % (Auto) 6.8 L 13.0 L (20-40) % Lymph # (Auto) 0.8 L (1.2-4.9) X10*3/uL Abs Immat Gran (auto) 0.06 H 0.04 H (0.00-0.03) X10*3/uL Absolute Neuts (auto) 10.0 H (2.0-8.3) x10*3/uL ESR 79 H (0-15) MM/HR PT 13.6 H (11.1-13.3) SEC Carbon Dioxide 18 L (22-29) mmol/L BUN 32 H 19 H (9-16) mg/dL POC Glucose (60-115) mg/dL Random Glucose 222 H 128 H (60-115) mg/dL Calcium 10.7 H D (8.4-10.2) mg/dL C-Reactive Protein 10.30 H (< or = 0.50) mg/dL 06/25/24 Range/Units 07:04 WBC (4.8-10.8) X10*3/uL RBC (4.60-5.80) X10*6/uL Hgb (14.0-18.0) g/dl Hct (42.0-52.0) % MPV (9.4-12.4) fL Immature Gran % (Auto) (0.0-0.4) % Neut % (Auto) (45-73) % Lymph % (Auto) (20-40) % Lymph # (Auto) (1.2-4.9) X10*3/uL Abs Immat Gran (auto) (0.00-0.03) X10*3/uL Absolute Neuts (auto) (2.0-8.3) x10*3/uL ESR (0-15) MM/HR PT (11.1-13.3) SEC Carbon Dioxide (22-29) mmol/L BUN (9-16) mg/dL POC Glucose 127 H (60-115) mg/dL Random Glucose (60-115) mg/dL Calcium (8.4-10.2) mg/dL C-Reactive Protein (< or = 0.50) mg/dL Short CBC 06/24/24 06/25/24 Range/Units 13:23 04:57 WBC 12.0 H 10.0 (4.8-10.8) X10*3/uL Hgb 13.5 L 12.1 L (14.0-18.0) g/dl Hct 39.5 L 35.0 L (42.0-52.0) % Plt Count 218 211 (160-400) X10*3/uL BMP 06/24/24 06/25/24 13:23 04:57 Sodium 136 137 Potassium 4.3 3.9 Chloride 103 106 Carbon Dioxide 18 L 22 BUN 32 H 19 H Creatinine 1.19 0.81 Calcium 10.7 H D 9.5 D Liver Function 06/24/24 Range/Units 13:23 Total Bilirubin 0.6 (0.0-1.0) mg/dL Direct Bilirubin 0.2 (0.0-0.5) mg/dL AST 16 (5-37) U/L ALT 19 (0-40) U/L Alkaline Phosphatase 88 (39-117) U/L Albumin 4.1 (3.5-5.0) g/dL All other labs normal. Imaging Additional studies: CT/CT elbow LT w IV con IMPRESSION: 1. At least 2 subcutaneous abscesses within the dorsal aspect of the proximal forearm measuring 2.6 cm and 1 cm. 2. Subtle cortical erosion may represent underlying osteomyelitis. Recommend further evaluation with MRI elbow with contrast, if clinically indicated. US/US venous duplex UE LT IMPRESSION: No evidence of deep venous thrombosis involving the left upper extremity. Assessment and Plan (1) Abscess of elbow: Status: Acute (2) Osteomyelitis: Status: Acute Plan 78-year-old male patient returning with a recurrent left forearm abscess near the elbow. There are CT findings which may be suggestive of osteo at the olecranon therefore MRI is pending. If this is confirmed would recommend orthopedic evaluation. Continue IV antibiotics, twice daily dressing changes, and arm elevation. We will continue to monitor. Procedures Date of Service Date of Service: 06/25/24
--- NOTE | 2024-06-25 09:50 | PHA.MEDREC ---
Pharmacy Consult ? Medication Reconciliation Pharmacy has completed the medication reconciliation. Spoke to patient and confirmed medication list. Patient said the only inhaler that he's on is Arnuity, he takes vitamin D every other day (last dose is 06/24/24), he takes apap 325 mg qid on schedule. Laat dose of his medication was yesterday afternoon.
--- NOTE | 2024-06-25 11:29 | PC.NURSE ---
Assumed care of this patient at 1100, am abx not yet hung. Am meds not given, med rec completed this am, provider messaged to order verified meds.
--- NOTE | 2024-06-25 11:36 | P.PNIM_ITS ---
Subjective Subjective Date of Service: 06/25/24 Interval History: f/u on L elbow abscess and concern for osteomylitis Physical Exam 2 Vital Signs: Vital Signs: Last Vital Signs Temp 98 F 06/25/24 08:00 Pulse 75 06/25/24 08:00 Resp 18 06/25/24 08:00 BP 140/63 H 06/25/24 08:00 Pulse Ox 94 06/25/24 08:00 O2 Del Method Room Air 06/25/24 08:00 BMI result Body Mass Index 31.8 General: AO X 3, no acute distress Resp: CTA bilateral CVS: S1,S2,RRR GI: +BS, NT, no distention Skin: see pic in H and P Neuro: motor grossly intact Psych: appropriate affect Objective Data Active Medications Acetaminophen (Acetaminophen 325 Mg Tablet) 650 mg PO Q6H PRN PRN Reason: Pain, Mild (Pain Scale 1-3), fever or headache Benzonatate (Benzonatate 100 Mg Capsule) 200 mg PO TID PRN PRN Reason: Cough Last Admin: 06/25/24 07:26 Dose: 200 mg Documented By: JAH Calcium Carbonate (Calcium Carbonate 750 Mg Tab.Chew) 750 mg PO Q4H PRN PRN Reason: Heartburn Enoxaparin Sodium (Enoxaparin Sodium 40 Mg/0.4 Ml Syringe) 40 mg SUBCUT Q24H [facility] Last Admin: 06/24/24 23:11 Dose: 40 mg Documented By: SABA-NICKY Glucose (Glucose Gel 15 Gm Gel..Gram.) 15 gm PO Q15M PRN; Protocol PRN Reason: per Hypoglycemia Standing Ord. Piperacillin Sod/Tazobactam (Sod 4.5 gm/ Sodium Chloride) 100 mls @ 200 mls/hr IV Q6H [facility] [place] Last Admin: 06/25/24 11:29 Dose: 200 mls/hr Documented By: DITOLC Dextrose (D10) 250 mls @ 750 mls/hr IV Q15M PRN; Protocol PRN Reason: per Hypoglycemia Standing Ord. Vancomycin HCl 1,500 mg/ (Sodium Chloride) 500 mls @ 333.333 mls/hr IV Q24H [facility] Insulin Human Lispro (Insulin Lispro 100 Unit/Ml 3 Ml Vial) 0 unit SUBCUT QIDACHS [facility] [place]; Protocol Last Admin: 06/25/24 07:14 Dose: Not Given Documented By: JAH Non-Admin Reason: No Insulin Coverage Magnesium Hydroxide (Milk Of Magnesia 30 Ml Oral.Susp) 30 ml PO DAILY PRN PRN Reason: Constipation Melatonin (Melatonin 3 Mg Tablet) 6 mg PO BEDTIME PRN PRN Reason: Insomnia Ondansetron HCl (Ondansetron Hcl 4 Mg/2 Ml Vial) 4 mg IVPUSH Q8H PRN PRN Reason: Nausea and Vomiting Pharmacy Consult (Consult Rx Vancomycin Dosing) 1 each MISCELLANE DAILY PRN PRN Reason: Consult order Sodium Chloride (0.9 % Sodium Chloride Flush 3 Ml Syringe) 3 ml IVFLUSH QSHIFT [facility] [place] Last Admin: 06/25/24 07:14 Dose: Not Given Documented By: JAH Non-Admin Reason: Med Not Available Labs 06/25/24 04:57 06/25/24 04:57 Labs: Laboratory Results - last 24 hr 06/24/24 06/24/24 06/25/24 13:23 15:54 04:57 MCV 94.5 93.8 MCH 32.3 32.4 MCHC 34.2 34.6 RDW 13.5 13.5 Plt Count 218 211 MPV 9.0 L 8.6 L Immature Gran % (Auto) 0.5 H 0.4 Neut % (Auto) 83.1 H 75.2 H Lymph % (Auto) 6.8 L 13.0 L [place] % (Auto) 8.9 9.2 Eos % (Auto) 0.3 1.7 Baso % (Auto) 0.4 0.5 Lymph # (Auto) 0.8 L 1.3 [place] # (Auto) 1.1 0.9 Eos # (Auto) 0.0 0.2 Baso # (Auto) 0.1 0.1 Abs Immat Gran (auto) 0.06 H 0.04 H Absolute Neuts (auto) 10.0 H 7.5 Absolute Nucleated RBC 0.000 0.000 Nucleated RBC % (auto) 0.0 0.0 ESR 79 H Hold Purple Top SEE NOTE PT 13.6 H INR 1.1 Anion Gap 19 13 Estim Creat Clear Calc 51.8 76.1 Estimated GFR 59 > 60 POC Glucose Random Glucose 222 H 128 H Lactic Acid 1.6 Calcium 10.7 H D 9.5 D Total Bilirubin 0.6 Direct Bilirubin 0.2 AST 16 ALT 19 Alkaline Phosphatase 88 C-Reactive Protein 10.30 H Total Protein 7.7 Albumin 4.1 06/25/24 07:04 MCV MCH MCHC RDW Plt Count MPV Immature Gran % (Auto) Neut % (Auto) Lymph % (Auto) [place] % (Auto) Eos % (Auto) Baso % (Auto) Lymph # (Auto) [place] # (Auto) Eos # (Auto) Baso # (Auto) Abs Immat Gran (auto) Absolute Neuts (auto) Absolute Nucleated RBC Nucleated RBC % (auto) ESR Hold Purple Top PT INR Anion Gap Estim Creat Clear Calc Estimated GFR POC Glucose 127 H Random Glucose Lactic Acid Calcium Total Bilirubin Direct Bilirubin AST ALT Alkaline Phosphatase C-Reactive Protein Total Protein Albumin Microbiology Microbiology Results: Microbiology 06/24/24 13:18 Gram Stain - Final Elbow Routine Culture - Preliminary Staphylococcus aureus Assessment and Plan (1) Osteomyelitis: Status: Acute (2) Abscess of elbow: Status: Acute Plan 78/m with DM, HTN, HLD, mood disorder, history of MRSA of chest wall wound here with Left elbow abscess, with concern for osteomylitis ( OM) Left elbow abscess, cellulitis and concern for olecranon OM on CT -VAncomycin + Zosyn started 06/24/24 -Surgery concern, ortho consult if MRI + for osteo -MRI of L elbow pending -follow cultuers -ID consult DM--diet control -SSI, check A1C HTN-ok control -continue Norvasc, metoprolol, losartan and aldactone BPH--Cardura HLD -Lipitor DVT prophylaxis: Lovenox Full code need for inpt: IV Abx for elbow abscess and possible osteomyliis, needs further testing and possible intervention Quality Stroke Does the patient have a stroke diagnosis?: No VTE Prior VTE?: No VTE Risk Level:: Medical - moderate - high VTE Device Contraindication: Treatment Not Indicated VTE Drug Contraindication: N/A - Med Ordered
[2024-06-25 11:39] LABS: Glucose, Whole Blood 154 mg/dL (60-115)
[2024-06-25 11:59] LABS: Estimated Average Glucose 148 mg/dL; Hemoglobin A1c % 6.8 % (<6.0)
[2024-06-25 12:00] VITALS: BP 128/63; PULSE 67; RESP 16; TEMP 36.8; O2SAT 95
[2024-06-25] MEDS: Metoprolol Succinate ER 100 MG TAB.ER.24H 200 MG PO (12:18)
[2024-06-25] MEDS: Losartan Potassium 50 MG TABLET 100 MG PO (12:18)
[2024-06-25] MEDS: Acetaminophen 325 MG TABLET PO ×2 (12:19→21:58)
[2024-06-25] MEDS: Doxazosin Mesylate 2 MG TABLET PO (12:19)
[2024-06-25] MEDS: Spironolactone 25 MG TABLET PO (12:19)
[2024-06-25] MEDS: Atorvastatin Calcium 40 MG TABLET PO (12:19)
[2024-06-25] MEDS: Aspirin Enteric Coated 81 MG TABLET.DR PO (12:19)
[2024-06-25] MEDS: Insulin Lispro 100 UNIT/ML 3 ML VIAL SUBCUT ×3 (12:24→21:57)
--- NOTE | 2024-06-25 12:39 | PC.NURSE ---
Patient's elbow wound redressed, wound consult placed. Patient to go to MRI, screening form to be completed.
--- NOTE | 2024-06-25 14:12 | PC.NURSE ---
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 Patient states he is willing to try MRI but is requesting sedation, plan is for patient to go ~1615. Patient planned to transfer over to ED overflow unit, will make accepting RN aware.
[2024-06-25] MEDS: LORazepam 2 MG/ML VIAL 0.5 MG IVPUSH (15:31)
--- NOTE | 2024-06-25 15:36 | PC.NURSE ---
patient to MRI at this time
[2024-06-25 16:00] VITALS: BP 121/58; PULSE 64; RESP 18; TEMP 36.6; O2SAT 99
[2024-06-25] MEDS: gadobutroL 10 ML VIAL IVPUSH (16:15)
[2024-06-25 17:11] LABS: Glucose, Whole Blood 197 mg/dL (60-115)
[2024-06-25 17:11] LABS: Glucose, Whole Blood 335 mg/dL (60-115)
[2024-06-25] MEDS: Multivitamin TABLET 1 TAB PO (17:59)
[2024-06-25] MEDS: Cholecalciferol (Vitamin D3) 25 MCG TABLET PO (18:00)
[2024-06-25 18:01] VITALS: BP 121/58
[2024-06-25] MEDS: amLODIPine Besylate 10 MG TABLET PO (18:01)
[2024-06-25] MEDS: vancomycin HCL 1,500 MG in 0.9 % Sodium Chloride 500 ML 333.33 MG IV (18:01)
[2024-06-25 20:00] VITALS: BP 145/69; PULSE 69; RESP 17; TEMP 36.4; O2SAT 94
[2024-06-25 21:17] LABS: Glucose, Whole Blood 152 mg/dL (60-115)
[2024-06-25] MEDS: Enoxaparin Sodium 40 MG/0.4 ML SYRINGE SUBCUT (21:58)
[2024-06-25] MEDS: traZODone HCL 50 MG TABLET PO (21:58)
[2024-06-26 04:44] LABS: Creatinine Clr Calc Pharmacy 63.5; Estimated Glomerular Filt Rate > 60
[2024-06-26 05:37] VITALS: BP 100/51; PULSE 96; RESP 16; TEMP 36.1; O2SAT 93
[2024-06-26] MEDS: Piperacillin Sodium/Tazobactam 4.5 GM in 0.9 % Sodium Chloride 100 ML IV ×4 (05:56→21:07)
[2024-06-26 07:41] LABS: Glucose, Whole Blood 136 mg/dL (60-115)
[2024-06-26] MEDS: Aspirin Enteric Coated 81 MG TABLET.DR PO (08:54)
[2024-06-26] MEDS: Acetaminophen 325 MG TABLET PO ×3 (08:54→16:40)
[2024-06-26] MEDS: Atorvastatin Calcium 40 MG TABLET PO (08:54)
[2024-06-26] MEDS: Losartan Potassium 50 MG TABLET 100 MG PO (08:54)
[2024-06-26] MEDS: Spironolactone 25 MG TABLET PO (08:54)
[2024-06-26] MEDS: Benzonatate 100 MG CAPSULE 200 MG PO ×2 (08:57→21:13)
[2024-06-26] MEDS: 0.9 % Sodium Chloride Flush 3 ML SYRINGE IVFLUSH (09:12)
[2024-06-26 09:55] LABS: C Reactive Protein 3.93 mg/dL (< or = 0.50)
--- NOTE | 2024-06-26 10:15 | PC.NURSE ---
Alert and oriented, denies pain or discomfort, medicated per mar. Patient sitting next to girlfriend in ED 3, ate well for breakfast. Aware that plan is for discharge home today
[2024-06-26 10:23] LABS: Erythrocyte Sedimentation Rate 65 MM/HR (0-15)
--- NOTE | 2024-06-26 10:33 | MHC.CM.PN ---
Met with patient in regards to discharge planning. Patient is currently in ER Overflow #2. His sig other, Jyothi is in Overflow #3. Patient is admitted. Jyothi is not. Patient lives with Jyothi, ambulates independently and had no services prior to coming to the hospital. No services anticipated to be needed because patient is not homebound. PCP verified. Copy of HCP requested. IMM explained and signed. Patient's vehicle is in the parking lot and he will transport patient and Jyothi home when medically stable. Continue to monitor for d/c needs.
[2024-06-26 11:56] LABS: Glucose, Whole Blood 184 mg/dL (60-115)
[2024-06-26 12:29] VITALS: BP 138/60; PULSE 71; RESP 18; TEMP 36.4; O2SAT 93
[2024-06-26] MEDS: Insulin Lispro 100 UNIT/ML 3 ML VIAL SUBCUT ×2 (12:39→21:06)
[2024-06-26] MEDS: Metoprolol Succinate ER 100 MG TAB.ER.24H 200 MG PO (12:40)
[2024-06-26] MEDS: Doxazosin Mesylate 2 MG TABLET PO (12:40)
--- NOTE | 2024-06-26 15:02 | PC.NURSE ---
IV in right ac pink and swollen, patient reports pain with palpation. IV removed, 20g in placed in right arm. Seen by wound care
--- NOTE | 2024-06-26 15:33 | HE.PHANOTE ---
Re: Conrado Small decline in renal function. Trough returned at 8.0. Current dose of 1500 q24h is subtherapeutic with predicted AUC of 364, and trough of 8.6. Dose increased to 1750mg q24h with predicted AUC 423, and predicted trough 10.1. Next trough to be drawn 06/27 @ 1500.
--- NOTE | 2024-06-26 16:03 | HO.WOUND ---
Wound Consult: Initial 78yr old?male admitted [place] [facility] [place] - See progress notes and H&P for detailed history.? Wound consult placed for Left Forearm wound.? Patient agreeable to assessment and photo documentation.? Patient reports significant improvment since admission. Reports used to follow with outpt wound clinic in past and is willing to return at time of discharge. Left Forearm Etiology: ?Spontaneous rupture of Abscess Measurements: 3cm x 3cm x 1cm Wound Bed: marbled wound bed with red moist tissue and yellow slough with slight central fluctuance noted Drainage / Odor: no odor noted - no purulence noted - serosang drainage when cleansed and probed for depth Edges: ? irregular Aster wound: mild resolving erythema per pt statement - swelling noted no warmth noted Pain: mild tenderness reported Goals of Treatment: ? Durafiber AG and outpt follow up with wound clinic Recommendations: 1. Provide adequate and supplemental nutrition.? 2. When applicable maintain blood glucose levels per Providers order. 3. Left Forearm - Cleanse with NS moist gauze, pat dry. Apply skin prep to periwound. Cover wound bed with Durafiber AG, ABD pad and Gauze wrap. Change every other day. Recommend follow up out patient Wound Clinic at [address] [place] [id number] and to call for an appointment at time of discharge. [phone].? Re-consult wound care Nurse for wound deterioration or wound changes.
[2024-06-26 16:38] LABS: Glucose, Whole Blood 151 mg/dL (60-115)
[2024-06-26] MEDS: amLODIPine Besylate 10 MG TABLET PO (16:40)
[2024-06-26] MEDS: Multivitamin TABLET 1 TAB PO (16:47)
--- NOTE | 2024-06-26 17:09 | P.PNIM_ITS ---
Subjective Subjective Date of Service: 06/26/24 Interval History: f/u L elbow abscess Review of Systems seems erythema ,has draining Physical Exam 2 Vital Signs: Vital Signs: Last Vital Signs Temp 97.6 F 06/26/24 12:29 Pulse 71 06/26/24 12:29 Resp 18 06/26/24 12:29 BP 138/60 06/26/24 12:29 Pulse Ox 93 06/26/24 12:29 O2 Del Method Room Air 06/26/24 12:29 BMI result Body Mass Index 31.8 General: AO X 3, no acute distress Resp: CTA bilateral CVS: S1,S2,RRR GI: +BS, NT, no distention Skin: see pic in H and P. Neuro: motor grossly intact Psych: appropriate affect Objective Data Active Medications Acetaminophen (Acetaminophen 325 Mg Tablet) 650 mg PO Q6H PRN PRN Reason: Pain, Mild (Pain Scale 1-3), fever or headache Acetaminophen (Acetaminophen 325 Mg Tablet) 325 mg PO QID [facility] Last Admin: 06/26/24 16:40 Dose: 325 mg Documented By: BERLIN Amlodipine Besylate (Amlodipine Besylate 10 Mg Tablet) 10 mg PO DAILY@1700 [facility]; Protocol Last Admin: 06/26/24 16:40 Dose: 10 mg Documented By: BERLIN Aspirin (Aspirin Enteric Coated 81 Mg Tablet.) 81 mg PO DAILY [facility] Last Admin: 06/26/24 08:54 Dose: 81 mg Documented By: BERLIN Atorvastatin Calcium (Atorvastatin Calcium 40 Mg Tablet) 40 mg PO DAILY [facility] Last Admin: 06/26/24 08:54 Dose: 40 mg Documented By: BERLIN Benzonatate (Benzonatate 100 Mg Capsule) 200 mg PO TID PRN PRN Reason: Cough Last Admin: 06/26/24 08:57 Dose: 200 mg Documented By: BERLIN Calcium Carbonate (Calcium Carbonate 750 Mg Tab.Chew) 750 mg PO Q4H PRN PRN Reason: Heartburn Doxazosin Mesylate (Doxazosin Mesylate 2 Mg Tablet) 2 mg PO DAILY@1200 [facility]; Protocol Last Admin: 06/26/24 12:40 Dose: 2 mg Documented By: BERLIN Enoxaparin Sodium (Enoxaparin Sodium 40 Mg/0.4 Ml Syringe) 40 mg SUBCUT Q24H [facility] Last Admin: 06/25/24 21:58 Dose: 40 mg Documented By: KATHRYN Fluticasone Propionate (Fluticasone Propionate 100 Mcg Blst.W.Dev) 1 puff INHALE RBID [facility] Last Admin: 06/26/24 07:46 Dose: Not Given Documented By: KIM Non-Admin Reason: Med Not Available Glucose (Glucose Gel 15 Gm Gel..Gram.) 15 gm PO Q15M PRN; Protocol PRN Reason: per Hypoglycemia Standing Ord. Piperacillin Sod/Tazobactam (Sod 4.5 gm/ Sodium Chloride) 100 mls @ 200 mls/hr IV Q6H [facility] Last Admin: 06/26/24 16:41 Dose: 100 mls/hr Documented By: BERLIN Dextrose (D10) 250 mls @ 750 mls/hr IV Q15M PRN; Protocol PRN Reason: per Hypoglycemia Standing Ord. Vancomycin HCl 1,000 mg/Vancomycin HCl 750 mg/ Sodium Chloride 535 mls @ 267.5 mls/hr IV Q24H [facility] Insulin Human Lispro (Insulin Lispro 100 Unit/Ml 3 Ml Vial) 0 unit SUBCUT QIDACHS [facility]; Protocol Last Admin: 06/26/24 16:43 Dose: Not Given Documented By: BERLIN Non-Admin Reason: Patient Refused Losartan Potassium (Losartan Potassium 50 Mg Tablet) 100 mg PO DAILY [facility]; Protocol Last Admin: 06/26/24 08:54 Dose: 100 mg Documented By: BERLIN Magnesium Hydroxide (Milk Of Magnesia 30 Ml Oral.Susp) 30 ml PO DAILY PRN PRN Reason: Constipation Melatonin (Melatonin 3 Mg Tablet) 6 mg PO BEDTIME PRN PRN Reason: Insomnia Metoprolol Succinate (Metoprolol Succinate Er 100 Mg Tab.Er.24h) 200 mg PO DAILY@1200 [facility]; Protocol Last Admin: 06/26/24 12:40 Dose: 200 mg Documented By: BERLIN Multivitamins/Vitamin C (Multivitamin Tablet) 1 tab PO DAILY@1700 [facility] Last Admin: 06/26/24 16:47 Dose: 1 tab Documented By: BERLIN Nystatin (Nystatin Powder 15 Gm Bottle) 1 appl TOPICAL TID PRN; Protocol PRN Reason: Skin Irritation Ondansetron HCl (Ondansetron Hcl 4 Mg/2 Ml Vial) 4 mg IVPUSH Q8H PRN PRN Reason: Nausea and Vomiting Pharmacy Consult (Consult Rx Vancomycin Dosing) 1 each MISCELLANE DAILY PRN PRN Reason: Consult order Sodium Chloride (0.9 % Sodium Chloride Flush 3 Ml Syringe) 3 ml IVFLUSH QSHIFT [facility] Last Admin: 06/26/24 16:43 Dose: Not Given Documented By: BERLIN Non-Admin Reason: IV Running Spironolactone (Spironolactone 25 Mg Tablet) 25 mg PO DAILY [facility]; Protocol Last Admin: 06/26/24 08:54 Dose: 25 mg Documented By: BERLIN Trazodone HCl (Trazodone Hcl 50 Mg Tablet) 50 mg PO BEDTIME [facility] Last Admin: 06/25/24 21:58 Dose: 50 mg Documented By: KATHRYN Vitamin D (Cholecalciferol (Vitamin D3) 25 Mcg Tablet) 25 mcg PO Q48H [facility] Last Admin: 06/25/24 18:00 Dose: 25 mcg Documented By: LYDIA Labs 06/25/24 04:57 06/26/24 04:25 Labs: Laboratory Results - last 24 hr 06/25/24 06/25/24 06/25/24 17:02 17:04 21:11 ESR Estim Creat Clear Calc Estimated GFR POC Glucose 335 H 197 H 152 H C-Reactive Protein Random Vancomycin 06/26/24 06/26/24 06/26/24 04:25 07:35 09:35 ESR 65 H Estim Creat Clear Calc 63.5 Estimated GFR > 60 POC Glucose 136 H C-Reactive Protein 3.93 H Random Vancomycin 06/26/24 06/26/24 06/26/24 11:51 14:58 16:31 ESR Estim Creat Clear Calc Estimated GFR POC Glucose 184 H 151 H C-Reactive Protein Random Vancomycin 8.0 L Microbiology Microbiology Results: Microbiology 06/24/24 13:23 Blood Culture - Preliminary Blood - Venous No growth after 48 hours. 06/24/24 13:18 Gram Stain - Final Elbow Routine Culture - Final Methicillin Res Staph Aureus 06/24/24 15:54 Blood Culture - Preliminary Blood - Venous No growth after 24 hours. Assessment and Plan (1) Abscess of elbow: Status: Acute (2) Cellulitis: Status: Acute Assessment and Plan: 78/m with DM, HTN, HLD, mood disorder, history of MRSA of chest wall wound here with Left elbow abscess, with concern for osteomylitis ( OM) Left elbow abscess, cellulitis and concern for olecranon OM on CT. vanco : 8 VAncomycin + Zosyn started 06/24/24, blood cultures pending mri reviewed -? cellulitis /phelgmon proximal to elbow add ortho eval. ID consult DM--diet control -SSI, check A1C HTN-ok control -continue Norvasc, metoprolol, losartan and aldactone BPH--Cardura HLD -Lipitor DVT prophylaxis: Lovenox Full code need for inpt: IV Abx for elbow abscess and possible osteomyliis, needs further testing and possible intervention Quality Stroke Does the patient have a stroke diagnosis?: No VTE Prior VTE?: No VTE Risk Level:: Medical - moderate - high VTE Device Contraindication: Treatment Not Indicated VTE Drug Contraindication: N/A - Med Ordered
[2024-06-26] MEDS: vancomycin HCL 1,000 MG, vancomycin HCL 750 MG in 0.9 % Sodium Chloride 500 ML 267.5 MG IV (17:19)
[2024-06-26 17:26] VITALS: BP 128/62; PULSE 66; RESP 17; TEMP 36.6; O2SAT 95
--- NOTE | 2024-06-26 18:02 | MHC.EDTECH ---
at this time the pt's arm wrap from wound care was coming undone and he requested for it to be rewrapped. This tech rewrapped w/ guaze wrap dressing around ABD pad covering the wound on the the pt's left lower arm just below the elbow.
--- NOTE | 2024-06-26 20:04 | PC.NURSE ---
pt refusing bed upstairs, states, why can't I just stay down here with her(girlfriend), I am going home tomorrow Charge, and Nephrology Social Worker made aware. Nephrology Social Worker, cancelled the bed, and pt is staying in OV. Pt expressed gratitude that he is allowed to stay with his partner.
[2024-06-26 20:22] VITALS: BP 115/58; PULSE 65; RESP 17; TEMP 36.7; O2SAT 94
[2024-06-26 21:00] LABS: Glucose, Whole Blood 188 mg/dL (60-115)
[2024-06-26] MEDS: traZODone HCL 50 MG TABLET PO (21:05)
[2024-06-26] MEDS: Acetaminophen 325 MG TABLET 650 MG PO (21:05)
[2024-06-26] MEDS: Enoxaparin Sodium 40 MG/0.4 ML SYRINGE SUBCUT (21:06)
--- NOTE | 2024-06-26 21:55 | PC.NURSE ---
pt given PM meds, and a snack, pt is sitting bedside girlfriends bed, denies any further needs
[2024-06-26] MEDS: Fluticasone Propionate 100 MCG BLST.W.DEV 1 PUFF INHALE (22:31)
[2024-06-26 22:36] VITALS: PULSE 66; RESP 18; O2SAT 94
--- NOTE | 2024-06-26 23:14 | PC.NURSE ---
report given to Lillian HUNTLEY
[2024-06-27] VITALS (9 sets, daily range): BP systolic 120–153; BP diastolic 63–77; PULSE 62–95; RESP 16–18; TEMP 36.6–36.9; O2SAT 93–96
[2024-06-27] MEDS: 0.9 % Sodium Chloride Flush 3 ML SYRINGE IVFLUSH ×2 (03:56→22:10)
[2024-06-27] MEDS: Piperacillin Sodium/Tazobactam 4.5 GM in 0.9 % Sodium Chloride 100 ML IV ×4 (03:57→22:09)
[2024-06-27 05:15] LABS: Creatinine Clr Calc Pharmacy 68.5; Estimated Glomerular Filt Rate > 60
--- NOTE | 2024-06-27 05:55 | PC.NURSE ---
Pt A&O x4, independent to the bathroom. IV abd administered per DEC. No c/o overnight. Call alberts within reach. Pt able to make needs known.
[2024-06-27] MEDS: Fluticasone Propionate 100 MCG BLST.W.DEV 1 PUFF INHALE ×2 (07:47→19:52)
[2024-06-27 07:55] LABS: Glucose, Whole Blood 129 mg/dL (60-115)
[2024-06-27] MEDS: Aspirin Enteric Coated 81 MG TABLET.DR PO (08:11)
[2024-06-27] MEDS: Spironolactone 25 MG TABLET PO (08:11)
[2024-06-27] MEDS: Acetaminophen 325 MG TABLET PO ×4 (08:11→21:15)
[2024-06-27] MEDS: Atorvastatin Calcium 40 MG TABLET PO (08:11)
[2024-06-27] MEDS: Losartan Potassium 50 MG TABLET 100 MG PO (08:12)
--- NOTE | 2024-06-27 08:14 | PC.NURSE ---
Pt. medicated per MAR. Also requesting PRN Tessalon pearls at this time. Pt. offers no complaints or concerns. Eating breakfast at this time. Plan of care ongoing.
--- NOTE | 2024-06-27 11:41 | PC.NURSE ---
Wound care provided to pt.'s left elbow as ordered. Tolerated well.
[2024-06-27 11:44] LABS: Glucose, Whole Blood 214 mg/dL (60-115)
[2024-06-27] MEDS: Insulin Lispro 100 UNIT/ML 3 ML VIAL SUBCUT ×2 (11:53→21:15)
[2024-06-27] MEDS: Metoprolol Succinate ER 100 MG TAB.ER.24H 200 MG PO (11:55)
[2024-06-27] MEDS: Doxazosin Mesylate 2 MG TABLET PO (11:55)
--- NOTE | 2024-06-27 13:02 | P.CNID_ITS ---
History of Present Illness Data of Consult Service Date: 06/19/24 Requesting physician: Valentine Fitch Primary Care Provider: MED Garcia HPI Reason for consult: left elbow abrasion/soft tissue injury He presents with redness to left elbow for last several days. He has no fever or chills. He has no injury to area apparently. Scan shows some tissue injury,no OM. Review of Systems 2 Review of Systems: Yes all other systems are reviewed and are negative PMFSH Past Medical History Medical History (Updated 06/27/24 @ 13:06 by Archana Guerrero MD) Soft tissue injury of forearm BPH (benign prostatic hyperplasia) HLD (hyperlipidemia) Type 2 diabetes mellitus HTN (hypertension) Family History Family History Father CVD (cardiovascular disease) Myocardial infarction Mother Liver cancer Pancreatic cancer Son Diabetes Family history: reviewed and not pertinent Surgical History Surgical History History of nephrolithiasis History of cataract surgery History of removal of cyst History of vasectomy Social History Social History Alcohol intake: never Patient Tobacco Use Status: Never used Tobacco Smoked in Last 30 Days: No Use of substances other than those prescribed or required for medical reasons: No Advance Directives: Yes Advance Directives Information Provided: No Advance Directives on File: No Do you have a plan to hurt others: No Plan Nutrition Risks: No Nutritional Risk service: No Current occupational status: retired Meds Allergies Allergy/AdvReac Type Severity Reaction Status Date / Time No Known Allergies Allergy Verified 06/24/24 12:28 Active Medications: Current Medications Acetaminophen (Acetaminophen 325 Mg Tablet) 650 mg PO Q6H PRN PRN Reason: Pain, Mild (Pain Scale 1-3), fever or headache Last Admin: 06/26/24 21:05 Dose: 650 mg Acetaminophen (Acetaminophen 325 Mg Tablet) 325 mg PO QID [facility] Last Admin: 06/27/24 08:11 Dose: 325 mg Amlodipine Besylate (Amlodipine Besylate 10 Mg Tablet) 10 mg PO DAILY@1700 [facility]; Protocol Last Admin: 06/26/24 16:40 Dose: 10 mg Aspirin (Aspirin Enteric Coated 81 Mg Tablet.) 81 mg PO DAILY [facility] Last Admin: 06/27/24 08:11 Dose: 81 mg Atorvastatin Calcium (Atorvastatin Calcium 40 Mg Tablet) 40 mg PO DAILY [facility] Last Admin: 06/27/24 08:11 Dose: 40 mg Benzonatate (Benzonatate 100 Mg Capsule) 200 mg PO TID PRN PRN Reason: Cough Last Admin: 06/26/24 21:13 Dose: 200 mg Calcium Carbonate (Calcium Carbonate 750 Mg Tab.Chew) 750 mg PO Q4H PRN PRN Reason: Heartburn Doxazosin Mesylate (Doxazosin Mesylate 2 Mg Tablet) 2 mg PO DAILY@1200 [facility]; Protocol Last Admin: 06/27/24 11:55 Dose: 2 mg Enoxaparin Sodium (Enoxaparin Sodium 40 Mg/0.4 Ml Syringe) 40 mg SUBCUT Q24H [facility] Last Admin: 06/26/24 21:06 Dose: 40 mg Fluticasone Propionate (Fluticasone Propionate 100 Mcg Blst.W.Dev) 1 puff INHALE RBID [facility] Last Admin: 06/27/24 07:47 Dose: 1 puff Glucose (Glucose Gel 15 Gm Gel..Gram.) 15 gm PO Q15M PRN; Protocol PRN Reason: per Hypoglycemia Standing Ord. Piperacillin Sod/Tazobactam (Sod 4.5 gm/ Sodium Chloride) 100 mls @ 200 mls/hr IV Q6H [facility] Last Infusion: 06/27/24 11:36 Dose: Infused Dextrose (D10) 250 mls @ 750 mls/hr IV Q15M PRN; Protocol PRN Reason: per Hypoglycemia Standing Ord. Vancomycin HCl 1,000 mg/Vancomycin HCl 750 mg/ Sodium Chloride 535 mls @ 267.5 mls/hr IV Q24H [facility] Last Infusion: 06/26/24 20:14 Dose: Infused Insulin Human Lispro (Insulin Lispro 100 Unit/Ml 3 Ml Vial) 0 unit SUBCUT QIDACHS [facility]; Protocol Last Admin: 06/27/24 11:53 Dose: 4 unit Losartan Potassium (Losartan Potassium 50 Mg Tablet) 100 mg PO DAILY [facility]; Protocol Last Admin: 06/27/24 08:12 Dose: 100 mg Magnesium Hydroxide (Milk Of Magnesia 30 Ml Oral.Susp) 30 ml PO DAILY PRN PRN Reason: Constipation Melatonin (Melatonin 3 Mg Tablet) 6 mg PO BEDTIME PRN PRN Reason: Insomnia Metoprolol Succinate (Metoprolol Succinate Er 100 Mg Tab.Er.24h) 200 mg PO DAILY@1200 [facility]; Protocol Last Admin: 06/27/24 11:55 Dose: 200 mg Multivitamins/Vitamin C (Multivitamin Tablet) 1 tab PO DAILY@1700 [facility] Last Admin: 06/26/24 16:47 Dose: 1 tab Nystatin (Nystatin Powder 15 Gm Bottle) 1 appl TOPICAL TID PRN; Protocol PRN Reason: Skin Irritation Ondansetron HCl (Ondansetron Hcl 4 Mg/2 Ml Vial) 4 mg IVPUSH Q8H PRN PRN Reason: Nausea and Vomiting Pharmacy Consult (Consult Rx Vancomycin Dosing) 1 each MISCELLANE DAILY PRN PRN Reason: Consult order Sodium Chloride (0.9 % Sodium Chloride Flush 3 Ml Syringe) [address] [facility] Last Admin: 06/27/24 08:07 Dose: Not Given Spironolactone (Spironolactone 25 Mg Tablet) 25 mg PO DAILY [facility]; Protocol Last Admin: 06/27/24 08:11 Dose: 25 mg Trazodone HCl (Trazodone Hcl 50 Mg Tablet) 50 mg PO BEDTIME [facility] Last Admin: 06/26/24 21:05 Dose: 50 mg Vitamin D (Cholecalciferol (Vitamin D3) 25 Mcg Tablet) 25 mcg PO Q48H [facility] Last Admin: 06/25/24 18:00 Dose: 25 mcg Home Medications ?Medication ?Instructions ?Recorded ?Confirmed ?Last Taken ?Type metoprolol succinate 200 mg 200 mg PO DAILY@1200 08/13/20 06/25/24 06/24/24 History tablet,extended release 24 hr trazodone 50 mg tablet 50 mg PO BEDTIME 08/13/20 06/25/24 06/23/24 History amlodipine 10 mg tablet 10 mg PO DAILY@169901/05/21 06/25/24 06/23/24 History cholecalciferol (vitamin D3) 25 25 mcg PO Q OTHER DAY@17001/05/21 06/25/24 06/24/24 History mcg (1,000 unit) tablet (Vitamin D3) [id number] 300 mcg-K 60 1 tab PO DAILY@169901/05/21 06/25/24 06/23/24 History mcg-lycop 600 mcg-lutein 300 mcg tablet (Centrum Silver Men) acetaminophen 325 mg tablet 325 mg PO QID 06/25/24 06/25/24 06/24/24 History atorvastatin 40 mg tablet 40 mg PO DAILY 06/25/24 06/25/24 06/24/24 History fluticasone furoate 100 1 inh inhalation DAILY 06/25/24 06/25/24 06/24/24 History mcg/actuation blister powder for inhalation (Arnuity Ellipta) losartan 100 mg tablet 100 mg PO DAILY 06/25/24 06/25/24 06/24/24 History nystatin 100,000 unit/gram topical 1 appl topical TID PRN Skin 06/25/24 06/25/24 Unknown History powder Irritation spironolactone 25 mg tablet 25 mg PO DAILY 06/25/24 06/25/24 06/24/24 History Physical Exam 2 Vital Signs: Vital Signs: Last Vital Signs Temp 98.0 F 06/27/24 07:57 Pulse 64 06/27/24 11:54 Resp 18 06/27/24 11:54 BP 127/63 06/27/24 11:54 Pulse Ox 95 06/27/24 11:54 O2 Del Method Room Air 06/27/24 11:54 BMI result Body Mass Index 31.8 Extrem: Other: abraded skin 5 x 5 cm down from elbow,dorsal,no olecranon bursa involvement seen, no cellulitis Results Labs 06/25/24 04:57 06/27/24 04:53 Labs: BMP 06/27/24 04:53 Creatinine 0.90 Microbiology Microbiology Results: Microbiology 06/24/24 15:54 Blood - Venous Blood Culture - Preliminary No growth after 48 hours. 06/24/24 13:23 Blood - Venous Blood Culture - Preliminary No growth after 48 hours. 06/24/24 13:18 Elbow Gram Stain - Final 06/24/24 13:18 Elbow Routine Culture - Final Methicillin Res Staph Aureus Assessment and Plan (1) Soft tissue injury of forearm: Status: Acute Plan Apparently some swelling and phlegmon. Would give po Doxycycline and Augmentin for 10 days. Follow Orthopedics.
--- NOTE | 2024-06-27 13:34 | P.CONOP_ITS ---
History of Present Illness HPI Consult date: 06/27/24 Chief complaint: elbow infection Narrative: 78 year old assigned male at with a history of MRSA, HTN, and DM admitted to the medical service for IV abx left elbow abscess. Patient states that over the last 4 days he has had a left elbow abscess that has gotten progressively large. Patient states that he had this happen once before and had to be admitted to the hospital for IV antibiotics. He denies recent illness, injury or insect bite. He does feel the elbow is improving with iv abx; however, it does continue to drain. Review of Systems 2 Review of Systems: Yes all other systems are reviewed and are negative PMFSH Past Medical History Medical History (Updated 06/27/24 @ 13:06 by Archana Guerrero MD) Soft tissue injury of forearm BPH (benign prostatic hyperplasia) HLD (hyperlipidemia) Type 2 diabetes mellitus HTN (hypertension) Family History Family History Father CVD (cardiovascular disease) Myocardial infarction Mother Liver cancer Pancreatic cancer Son Diabetes Family history: reviewed and not pertinent Surgical History Surgical History History of nephrolithiasis History of cataract surgery History of removal of cyst History of vasectomy Social History Social History Alcohol intake: never Patient Tobacco Use Status: Never used Tobacco Smoked in Last 30 Days: No Use of substances other than those prescribed or required for medical reasons: No Advance Directives: Yes Advance Directives Information Provided: No Advance Directives on File: No Do you have a plan to hurt others: No Plan Nutrition Risks: No Nutritional Risk service: No Current occupational status: retired Meds Allergies Allergy/AdvReac Type Severity Reaction Status Date / Time No Known Allergies Allergy Verified 06/24/24 12:28 Active Medications: Current Medications Acetaminophen (Acetaminophen 325 Mg Tablet) 650 mg PO Q6H PRN PRN Reason: Pain, Mild (Pain Scale 1-3), fever or headache Last Admin: 06/26/24 21:05 Dose: 650 mg Acetaminophen (Acetaminophen 325 Mg Tablet) 325 mg PO QID [facility] Last Admin: 06/27/24 08:11 Dose: 325 mg Amlodipine Besylate (Amlodipine Besylate 10 Mg Tablet) 10 mg PO DAILY@1700 [facility]; Protocol Last Admin: 06/26/24 16:40 Dose: 10 mg Aspirin (Aspirin Enteric Coated 81 Mg Tablet.Dr) 81 mg PO DAILY [facility] Last Admin: 06/27/24 08:11 Dose: 81 mg Atorvastatin Calcium (Atorvastatin Calcium 40 Mg Tablet) 40 mg PO DAILY [facility] Last Admin: 06/27/24 08:11 Dose: 40 mg Benzonatate (Benzonatate 100 Mg Capsule) 200 mg PO TID PRN PRN Reason: Cough Last Admin: 06/26/24 21:13 Dose: 200 mg Calcium Carbonate (Calcium Carbonate 750 Mg Tab.Chew) 750 mg PO Q4H PRN PRN Reason: Heartburn Doxazosin Mesylate (Doxazosin Mesylate 2 Mg Tablet) 2 mg PO DAILY@1200 [facility]; Protocol Last Admin: 06/27/24 11:55 Dose: 2 mg Enoxaparin Sodium (Enoxaparin Sodium 40 Mg/0.4 Ml Syringe) 40 mg SUBCUT Q24H [facility] Last Admin: 06/26/24 21:06 Dose: 40 mg Fluticasone Propionate (Fluticasone Propionate 100 Mcg Blst.W.Dev) 1 puff INHALE RBID [facility] Last Admin: 06/27/24 07:47 Dose: 1 puff Glucose (Glucose Gel 15 Gm Gel..Gram.) 15 gm PO Q15M PRN; Protocol PRN Reason: per Hypoglycemia Standing Ord. Piperacillin Sod/Tazobactam (Sod 4.5 gm/ Sodium Chloride) 100 mls @ 200 mls/hr IV Q6H [facility] Last Infusion: 06/27/24 11:36 Dose: Infused Dextrose (D10) 250 mls @ 750 mls/hr IV Q15M PRN; Protocol PRN Reason: per Hypoglycemia Standing Ord. Vancomycin HCl 1,000 mg/Vancomycin HCl 750 mg/ Sodium Chloride 535 mls @ 267.5 mls/hr IV Q24H [facility] Last Infusion: 06/26/24 20:14 Dose: Infused Insulin Human Lispro (Insulin Lispro 100 Unit/Ml 3 Ml Vial) 0 unit SUBCUT QIDACHS [facility]; Protocol Last Admin: 06/27/24 11:53 Dose: 4 unit Losartan Potassium (Losartan Potassium 50 Mg Tablet) 100 mg PO DAILY [facility]; Protocol Last Admin: 06/27/24 08:12 Dose: 100 mg Magnesium Hydroxide (Milk Of Magnesia 30 Ml Oral.Susp) 30 ml PO DAILY PRN PRN Reason: Constipation Melatonin (Melatonin 3 Mg Tablet) 6 mg PO BEDTIME PRN PRN Reason: Insomnia Metoprolol Succinate (Metoprolol Succinate Er 100 Mg Tab.Er.24h) 200 mg PO DAILY@1200 [facility]; Protocol Last Admin: 06/27/24 11:55 Dose: 200 mg Multivitamins/Vitamin C (Multivitamin Tablet) 1 tab PO DAILY@1700 [facility] Last Admin: 06/26/24 16:47 Dose: 1 tab Nystatin (Nystatin Powder 15 Gm Bottle) 1 appl TOPICAL TID PRN; Protocol PRN Reason: Skin Irritation Ondansetron HCl (Ondansetron Hcl 4 Mg/2 Ml Vial) 4 mg IVPUSH Q8H PRN PRN Reason: Nausea and Vomiting Pharmacy Consult (Consult Rx Vancomycin Dosing) 1 each MISCELLANE DAILY PRN PRN Reason: Consult order Sodium Chloride (0.9 % Sodium Chloride Flush 3 Ml Syringe) 3 ml IVFLUSH [facility] Last Admin: 06/27/24 08:07 Dose: Not Given Spironolactone (Spironolactone 25 Mg Tablet) 25 mg PO DAILY [facility]; Protocol Last Admin: 06/27/24 08:11 Dose: 25 mg Trazodone HCl (Trazodone Hcl 50 Mg Tablet) 50 mg PO BEDTIME [facility] Last Admin: 06/26/24 21:05 Dose: 50 mg Vitamin D (Cholecalciferol (Vitamin D3) 25 Mcg Tablet) 25 mcg PO Q48H [facility] Last Admin: 06/25/24 18:00 Dose: 25 mcg Home Medications ?Medication ?Instructions ?Recorded ?Confirmed ?Last Taken ?Type metoprolol succinate 200 mg 200 mg PO DAILY@1200 08/13/20 06/25/24 06/24/24 History tablet,extended release 24 hr trazodone 50 mg tablet 50 mg PO BEDTIME 08/13/20 06/25/24 06/23/24 History amlodipine 10 mg tablet 10 mg PO DAILY@1700 01/05/21 06/25/24 06/23/24 History cholecalciferol (vitamin D3) 25 25 mcg PO Q OTHER DAY@1700 01/05/21 06/25/24 06/24/24 History mcg (1,000 unit) tablet (Vitamin D3) [id number] 300 mcg-K 60 1 tab PO DAILY@1700 01/05/21 06/25/24 06/23/24 History mcg-lycop 600 mcg-lutein 300 mcg tablet (Centrum Silver Men) acetaminophen 325 mg tablet 325 mg PO QID 06/25/24 06/25/24 06/24/24 History atorvastatin 40 mg tablet 40 mg PO DAILY 06/25/24 06/25/24 06/24/24 History fluticasone furoate 100 1 inh inhalation DAILY 06/25/24 06/25/24 06/24/24 History mcg/actuation blister powder for inhalation (Arnuity Ellipta) losartan 100 mg tablet 100 mg PO DAILY 06/25/24 06/25/24 06/24/24 History nystatin 100,000 unit/gram topical 1 appl topical TID PRN Skin 06/25/24 06/25/24 Unknown History powder Irritation spironolactone 25 mg tablet 25 mg PO DAILY 06/25/24 06/25/24 06/24/24 History Physical Exam 2 Vital Signs: Vital Signs: Last Vital Signs Temp 98.0 F 06/27/24 07:57 Pulse 64 06/27/24 11:54 Resp 18 06/27/24 11:54 BP 127/63 06/27/24 11:54 Pulse Ox 95 06/27/24 11:54 O2 Del Method Room Air 06/27/24 11:54 BMI result Body Mass Index 31.8 Const: General: cooperative, healthy appearing, comfortable and no acute distress Extrem: Other: Left elbow joint without effusion or redness, no pain with ROM of the elbow There is a golf ball sized open wound with purulant appearing tissue/ exudate There is surrounding erythema Results Labs 06/25/24 04:57 06/27/24 04:53 Labs: Abnormal lab results 06/26/24 06/26/24 06/26/24 Range/Units 14:58 16:31 20:54 POC Glucose 151 H 188 H (60-115) mg/dL Random Vancomycin 8.0 L (15-20) mcg/mL 06/27/24 06/27/24 Range/Units 07:50 11:39 POC Glucose 129 H 214 H (60-115) mg/dL Random Vancomycin (15-20) mcg/mL H & H 06/24/24 06/25/24 Range/Units 13:23 04:57 Hgb 13.5 L 12.1 L (14.0-18.0) g/dl Hct 39.5 L 35.0 L (42.0-52.0) % Coagulation 06/24/24 Range/Units 13:23 INR 1.1 (0.9-1.1) All other labs normal. Diagnostic results Elbow MRI: image reviewed (MR elbow LT wo/w con IMPRESSION: Posterior soft tissue defect with underlying cellulitis and sinus tract/phlegmon as described. No osteomyelitis. Incidental undersurface partial tears of the common flexor and common extensor tendon origin. ) Assessment and Plan (1) Abscess of elbow: Status: Acute Plan I discussed the case with Dr Avalos, due to ongoing drainage and skin breakdown we discussed surgical intervention, I&D left elbow wound. I discussed with the patient risk , benefits and alternative, risk including , but not limited to ongoing infection , skin breakdown, pain or nerve/ tissue injury to surrounding structures. The patient does express understanding and would like to proceed with left elbow I&D with Dr Avalos. Procedures Date of Service Date of Service: 06/27/24
--- NOTE | 2024-06-27 15:08 | P.PNIM_ITS ---
Subjective Subjective Date of Service: 06/27/24 Interval History: f/u left foream /near elbow area cellulitis Review of Systems seems erythema somewhat improving ,has draining Physical Exam 2 Vital Signs: Vital Signs: Last Vital Signs Temp 98.0 F 06/27/24 07:57 Pulse 64 06/27/24 11:54 Resp 18 06/27/24 11:54 BP 127/63 06/27/24 11:54 Pulse Ox 95 06/27/24 11:54 O2 Del Method Room Air 06/27/24 11:54 BMI result Body Mass Index 31.8 General: AO X 3, no acute distress Resp: CTA bilateral CVS: S1,S2,RRR GI: +BS, NT, nd,bs present. Skin: see pic in H and P. Neuro: motor grossly intact Psych: appropriate affect Objective Data Active Medications Acetaminophen (Acetaminophen 325 Mg Tablet) 650 mg PO Q6H PRN PRN Reason: Pain, Mild (Pain Scale 1-3), fever or headache Last Admin: 06/26/24 21:05 Dose: 650 mg Documented By: ALYCE Acetaminophen (Acetaminophen 325 Mg Tablet) 325 mg PO QID [facility] Last Admin: 06/27/24 13:59 Dose: 325 mg Documented By: SANTA Amlodipine Besylate (Amlodipine Besylate 10 Mg Tablet) 10 mg PO DAILY@1700 [facility]; Protocol Last Admin: 06/26/24 16:40 Dose: 10 mg Documented By: BERLIN Aspirin (Aspirin Enteric Coated 81 Mg Tablet.) 81 mg PO DAILY [facility] Last Admin: 06/27/24 08:11 Dose: 81 mg Documented By: SANTA Atorvastatin Calcium (Atorvastatin Calcium 40 Mg Tablet) 40 mg PO DAILY [facility] Last Admin: 06/27/24 08:11 Dose: 40 mg Documented By: SANTA Benzonatate (Benzonatate 100 Mg Capsule) 200 mg PO TID PRN PRN Reason: Cough Last Admin: 06/26/24 21:13 Dose: 200 mg Documented By: ALYCE Calcium Carbonate (Calcium Carbonate 750 Mg Tab.Chew) 750 mg PO Q4H PRN PRN Reason: Heartburn Doxazosin Mesylate (Doxazosin Mesylate 2 Mg Tablet) 2 mg PO DAILY@1200 [facility]; Protocol Last Admin: 06/27/24 11:55 Dose: 2 mg Documented By: SANTA Enoxaparin Sodium (Enoxaparin Sodium 40 Mg/0.4 Ml Syringe) 40 mg SUBCUT Q24H [facility] Last Admin: 06/26/24 21:06 Dose: 40 mg Documented By: ALYCE Fluticasone Propionate (Fluticasone Propionate 100 Mcg Blst.W.Dev) 1 puff INHALE RBID [facility] Last Admin: 06/27/24 07:47 Dose: 1 puff Documented By: JANETTE Glucose (Glucose Gel 15 Gm Gel..Gram.) 15 gm PO Q15M PRN; Protocol PRN Reason: per Hypoglycemia Standing Ord. Piperacillin Sod/Tazobactam (Sod 4.5 gm/ Sodium Chloride) 100 mls @ 200 mls/hr IV Q6H [facility] Last Infusion: 06/27/24 11:36 Dose: Infused Documented By: SANTA Dextrose (D10) 250 mls @ 750 mls/hr IV Q15M PRN; Protocol PRN Reason: per Hypoglycemia Standing Ord. Vancomycin HCl 1,000 mg/Vancomycin HCl 750 mg/ Sodium Chloride 535 mls @ 267.5 mls/hr IV Q24H [facility] Last Infusion: 06/26/24 20:14 Dose: Infused Documented By: ALYCE Insulin Human Lispro (Insulin Lispro 100 Unit/Ml 3 Ml Vial) 0 unit SUBCUT QIDACHS [facility]; Protocol Last Admin: 06/27/24 11:53 Dose: 4 unit Documented By: SANTA Losartan Potassium (Losartan Potassium 50 Mg Tablet) 100 mg PO DAILY [facility]; Protocol Last Admin: 06/27/24 08:12 Dose: 100 mg Documented By: SANTA Magnesium Hydroxide (Milk Of Magnesia 30 Ml Oral.Susp) 30 ml PO DAILY PRN PRN Reason: Constipation Melatonin (Melatonin 3 Mg Tablet) 6 mg PO BEDTIME PRN PRN Reason: Insomnia Metoprolol Succinate (Metoprolol Succinate Er 100 Mg Tab.Er.24h) 200 mg PO DAILY@1200 [facility]; Protocol Last Admin: 06/27/24 11:55 Dose: 200 mg Documented By: SANTA Multivitamins/Vitamin C (Multivitamin Tablet) 1 tab PO DAILY@1700 [facility] Last Admin: 06/26/24 16:47 Dose: 1 tab Documented By: BERLIN Nystatin (Nystatin Powder 15 Gm Bottle) 1 appl TOPICAL TID PRN; Protocol PRN Reason: Skin Irritation Ondansetron HCl (Ondansetron Hcl 4 Mg/2 Ml Vial) 4 mg IVPUSH Q8H PRN PRN Reason: Nausea and Vomiting Pharmacy Consult (Consult Rx Vancomycin Dosing) 1 each MISCELLANE DAILY PRN PRN Reason: Consult order Sodium Chloride (0.9 % Sodium Chloride Flush 3 Ml Syringe) 3 ml IVFLUSH QSHIFT [facility] Last Admin: 06/27/24 08:07 Dose: Not Given Documented By: SANTA Non-Admin Reason: Previously Administered Spironolactone (Spironolactone 25 Mg Tablet) 25 mg PO DAILY [facility]; Protocol Last Admin: 06/27/24 08:11 Dose: 25 mg Documented By: SANTA Trazodone HCl (Trazodone Hcl 50 Mg Tablet) 50 mg PO BEDTIME [facility] Last Admin: 06/26/24 21:05 Dose: 50 mg Documented By: ALYCE Vitamin D (Cholecalciferol (Vitamin D3) 25 Mcg Tablet) 25 mcg PO Q48H [facility] Last Admin: 06/25/24 18:00 Dose: 25 mcg Documented By: LYDIA Labs 06/25/24 04:57 06/27/24 04:53 Labs: Laboratory Results - last 24 hr 06/26/24 06/26/24 06/26/24 14:58 16:31 20:54 Estim Creat Clear Calc Estimated GFR POC Glucose 151 H 188 H Random Vancomycin 8.0 L 06/27/24 06/27/24 06/27/24 04:53 07:50 11:39 Estim Creat Clear Calc 68.5 Estimated GFR > 60 POC Glucose 129 H 214 H Random Vancomycin Microbiology Microbiology Results: Microbiology 06/24/24 15:54 Blood Culture - Preliminary Blood - Venous No growth after 48 hours. 06/24/24 13:23 Blood Culture - Preliminary Blood - Venous No growth after 48 hours. Assessment and Plan (1) Soft tissue injury of forearm: Status: Acute Assessment and Plan: 78/m with DM, HTN, HLD, mood disorder, history of MRSA of chest wall wound here with Left elbow abscess, with concern for osteomylitis ( OM) Left elbow cellulitis,some drainage and concern for olecranon OM on CT. vanco : 8(06/26/24) skin wound cult -mrsa VAncomycin + Zosyn started 06/24/24, blood cultures neg@48hrs mri reviewed -? cellulitis /phelgmon proximal to elbow d/w surgery-reviewed ct and mri-rec ortho eval for near elbow area cellulitis/drainage and proximity to elbow. ID consult DM--diet control -SSI,A1C: 6.8 HTN-ok control -continue Norvasc, metoprolol, losartan and aldactone BPH--Cardura HLD -Lipitor DVT prophylaxis: Lovenox Full code need for inpt: IV Abx for elbow abscess and possible osteomyliis, needs further testing and possible intervention Quality Stroke Does the patient have a stroke diagnosis?: No VTE Prior VTE?: No VTE Risk Level:: Medical - moderate - high VTE Device Contraindication: Treatment Not Indicated VTE Drug Contraindication: N/A - Med Ordered
[2024-06-27 15:47] LABS: Vancomycin Random 8.3 mcg/mL (15-20)
--- NOTE | 2024-06-27 16:21 | HE.PHANOTE ---
RE: VANCO DOSING Random came back as 8.3. Dose is increased to 1250 mg q12h, next random is scheduled for 06/28/24 @1500.
[2024-06-27] MEDS: Cholecalciferol (Vitamin D3) 25 MCG TABLET PO (16:43)
[2024-06-27] MEDS: Multivitamin TABLET 1 TAB PO (16:43)
[2024-06-27] MEDS: amLODIPine Besylate 10 MG TABLET PO (16:44)
[2024-06-27 16:51] LABS: Glucose, Whole Blood 129 mg/dL (60-115)
[2024-06-27] MEDS: vancomycin HCL 1,250 MG in 0.9 % Sodium Chloride 250 ML 166.67 MG IV (17:56)
--- NOTE | 2024-06-27 18:10 | MHC.CM.PN ---
Pt has declined the bed on S3. Pt is admitted. His S.O. is in the overflow unit. She cannot be home alone, as this patient cares for her. The patient requests to remain in the overflow with his S.O. His S.O. was given a ABN today. Primary RN and ED Charge aware. ED charge spoke with beds. Pt will remain in the ED overflow.
[2024-06-27 21:04] LABS: Glucose, Whole Blood 178 mg/dL (60-115)
[2024-06-27] MEDS: traZODone HCL 50 MG TABLET PO (21:15)
[2024-06-28] VITALS (14 sets, daily range): BP systolic 117–156; BP diastolic 53–77; PULSE 60–74; RESP 16–20; TEMP 36.4–36.9; O2SAT 92–99
[2024-06-28] MEDS: Piperacillin Sodium/Tazobactam 4.5 GM in 0.9 % Sodium Chloride 100 ML IV ×4 (04:02→21:38)
[2024-06-28] MEDS: vancomycin HCL 1,250 MG in 0.9 % Sodium Chloride 250 ML 166.67 MG IV (04:37)
[2024-06-28 05:46] LABS: Creatinine Clr Calc Pharmacy 62.9; Estimated Glomerular Filt Rate > 60
[2024-06-28 07:49] LABS: Glucose, Whole Blood 119 mg/dL (60-115)
[2024-06-28] MEDS: Fluticasone Propionate 100 MCG BLST.W.DEV 1 PUFF INHALE (08:14)
[2024-06-28] MEDS: 0.9 % Sodium Chloride Flush 3 ML SYRINGE IVFLUSH ×2 (10:02→18:31)
[2024-06-28 10:25] LABS: Glucose, Whole Blood 150 mg/dL (60-115)
--- NOTE | 2024-06-28 10:32 | PC.NURSE ---
ring removed in a plastic bag in his chart labeled ptsts eyelids normally flipped down and red aware careplan
--- NOTE | 2024-06-28 10:33 | MHC.EDTECH ---
pt taken up for procedure.
--- NOTE | 2024-06-28 10:34 | PC.NURSE ---
dressing to left arm d/i +pulses good cms
--- NOTE | 2024-06-28 10:39 | HO.ANESPROP2 ---
HPI - Anesthesia Eval Consult details Narrative: 78-year-old male patient with a recurrent abscess of the left arm located just below the elbow. He has a past history of diabetes mellitus type 2, hypertension, mixed hyperlipidemia and a previous history of MRSA. He had a previous admission in 2020 for a similar left forearm cellulitis with abscess. He feels the current abscess is in the same location but he denies any recent trauma or other inciting event. [facility] Active Problems Active Problems: All Active Problems Soft tissue injury of forearm (Acute) Osteomyelitis (Acute) Abscess of elbow (Acute) MRSA (methicillin resistant Staphylococcus aureus) (Acute) Carbuncle (Acute) Furuncle (Acute) Cellulitis (Acute) Cough (Acute) Past Medical History Medical History Soft tissue injury of forearm BPH (benign prostatic hyperplasia) HLD (hyperlipidemia) Type 2 diabetes mellitus HTN (hypertension) Family History Family History Father CVD (cardiovascular disease) Myocardial infarction Mother Liver cancer Pancreatic cancer Son Diabetes Family history of problems with anesthesia: No Surgical History Surgical History History of nephrolithiasis History of cataract surgery History of removal of cyst History of vasectomy History of Problems with Anesthesia: No Social History Social History Alcohol intake: never Patient Tobacco Use Status: Never used Tobacco Smoked in Last 30 Days: No Use of substances other than those prescribed or required for medical reasons: No Are you DNR?: No Advance Directives: No Advance Directives Information Provided: No Advance Directives on File: No Do you have a plan to hurt others: No Plan Nutrition Risks: No Nutritional Risk service: No Current occupational status: retired Meds Allergies Allergy/AdvReac Type Severity Reaction Status Date / Time No Known Allergies Allergy Verified 06/24/24 12:28 Active Medications: Current Medications Acetaminophen (Acetaminophen 325 Mg Tablet) 650 mg PO Q6H PRN PRN Reason: Pain, Mild (Pain Scale 1-3), fever or headache Last Admin: 06/26/24 21:05 Dose: 650 mg Acetaminophen (Acetaminophen 325 Mg Tablet) 325 mg PO QID [facility] Last Admin: 06/27/24 21:15 Dose: 325 mg Amlodipine Besylate (Amlodipine Besylate 10 Mg Tablet) 10 mg PO DAILY@1700 [facility]; Protocol Last Admin: 06/27/24 16:44 Dose: 10 mg Aspirin (Aspirin Enteric Coated 81 Mg Tablet.Dr) 81 mg PO DAILY [facility] Last Admin: 06/27/24 08:11 Dose: 81 mg Atorvastatin Calcium (Atorvastatin Calcium 40 Mg Tablet) 40 mg PO DAILY [facility] Last Admin: 06/27/24 08:11 Dose: 40 mg Benzonatate (Benzonatate 100 Mg Capsule) 200 mg PO TID PRN PRN Reason: Cough Last Admin: 06/26/24 21:13 Dose: 200 mg Calcium Carbonate (Calcium Carbonate 750 Mg Tab.Chew) 750 mg PO Q4H PRN PRN Reason: Heartburn Doxazosin Mesylate (Doxazosin Mesylate 2 Mg Tablet) 2 mg PO DAILY@1200 [facility]; Protocol Last Admin: 06/27/24 11:55 Dose: 2 mg Enoxaparin Sodium (Enoxaparin Sodium 40 Mg/0.4 Ml Syringe) 40 mg SUBCUT Q24H [facility] Last Admin: 06/27/24 21:16 Dose: Not Given Fluticasone Propionate (Fluticasone Propionate 100 Mcg Blst.W.Dev) 1 puff INHALE RBID [facility] Last Admin: 06/28/24 08:14 Dose: 1 puff Glucose (Glucose Gel 15 Gm Gel..Gram.) 15 gm PO Q15M PRN; Protocol PRN Reason: per Hypoglycemia Standing Ord. Piperacillin Sod/Tazobactam (Sod 4.5 gm/ Sodium Chloride) 100 mls @ 200 mls/hr IV Q6H [facility] Last Infusion: 06/28/24 04:34 Dose: Infused Dextrose (D10) 250 mls @ 750 mls/hr IV Q15M PRN; Protocol PRN Reason: per Hypoglycemia Standing Ord. Vancomycin HCl 1,250 mg/ (Sodium Chloride) 250 mls @ 166.667 mls/hr IV Q12H [facility] Last Infusion: 06/28/24 06:15 Dose: Infused Insulin Human Lispro (Insulin Lispro 100 Unit/Ml 3 Ml Vial) 0 unit SUBCUT QIDACHS [facility]; Protocol Last Admin: 06/28/24 08:49 Dose: Not Given Losartan Potassium (Losartan Potassium 50 Mg Tablet) 100 mg PO DAILY [facility]; Protocol Last Admin: 06/27/24 08:12 Dose: 100 mg Magnesium Hydroxide (Milk Of Magnesia 30 Ml Oral.Susp) 30 ml PO DAILY PRN PRN Reason: Constipation Melatonin (Melatonin 3 Mg Tablet) 6 mg PO BEDTIME PRN PRN Reason: Insomnia Metoprolol Succinate (Metoprolol Succinate Er 100 Mg Tab.Er.24h) 200 mg PO DAILY@1200 [facility]; Protocol Last Admin: 06/27/24 11:55 Dose: 200 mg Multivitamins/Vitamin C (Multivitamin Tablet) 1 tab PO DAILY@1700 [facility] Last Admin: 06/27/24 16:43 Dose: 1 tab Nystatin (Nystatin Powder 15 Gm Bottle) 1 appl TOPICAL TID PRN; Protocol PRN Reason: Skin Irritation Ondansetron HCl (Ondansetron Hcl 4 Mg/2 Ml Vial) 4 mg IVPUSH Q8H PRN PRN Reason: Nausea and Vomiting Pharmacy Consult (Consult Rx Vancomycin Dosing) 1 each MISCELLANE DAILY PRN PRN Reason: Consult order Sodium Chloride (0.9 % Sodium Chloride Flush 3 Ml Syringe) 3 ml IVFLUSH QSHIFT [facility] Last Admin: 06/28/24 10:02 Dose: 3 ml Spironolactone (Spironolactone 25 Mg Tablet) 25 mg PO DAILY [facility]; Protocol Last Admin: 06/27/24 08:11 Dose: 25 mg Trazodone HCl (Trazodone Hcl 50 Mg Tablet) 50 mg PO BEDTIME [facility] Last Admin: 06/27/24 21:15 Dose: 50 mg Vitamin D (Cholecalciferol (Vitamin D3) 25 Mcg Tablet) 25 mcg PO Q48H [facility] Last Admin: 06/27/24 16:43 Dose: 25 mcg Home Medications ?Medication ?Instructions ?Recorded ?Confirmed ?Last Taken ?Type metoprolol succinate 200 mg 200 mg PO DAILY@1200 08/13/20 06/25/24 06/24/24 History tablet,extended release 24 hr trazodone 50 mg tablet 50 mg PO BEDTIME 08/13/20 06/25/24 06/23/24 History amlodipine 10 mg tablet 10 mg PO DAILY@1700 01/05/21 06/25/24 06/23/24 History cholecalciferol (vitamin D3) 25 25 mcg PO Q OTHER DAY@1700 01/05/21 06/25/24 06/24/24 History mcg (1,000 unit) tablet (Vitamin D3) [id number] 300 mcg-K 60 1 tab PO DAILY@1700 01/05/21 06/25/24 06/23/24 History mcg-lycop 600 mcg-lutein 300 mcg tablet (Centrum Silver Men) acetaminophen 325 mg tablet 325 mg PO QID 06/25/24 06/25/24 06/24/24 History atorvastatin 40 mg tablet 40 mg PO DAILY 06/25/24 06/25/24 06/24/24 History fluticasone furoate 100 1 inh inhalation DAILY 06/25/24 06/25/24 06/24/24 History mcg/actuation blister powder for inhalation (Arnuity Ellipta) losartan 100 mg tablet 100 mg PO DAILY 06/25/24 06/25/24 06/24/24 History nystatin 100,000 unit/gram topical 1 appl topical TID PRN Skin 06/25/24 06/25/24 Unknown History powder Irritation spironolactone 25 mg tablet 25 mg PO DAILY 06/25/24 06/25/24 06/24/24 History Exam Height,Weight and Vital Signs: Height 5 ft 5 in Weight 86.8 kg Last Vital Signs Temp 97.5 F 06/28/24 10:17 Pulse 60 06/28/24 10:17 Resp 20 06/28/24 10:17 BP 147/70 H 06/28/24 10:17 Pulse Ox 97 06/28/24 10:17 O2 Del Method Room Air 06/28/24 10:17 Pertinent Lab Results Pertinent Lab Results: Laboratory Tests 06/24/24 06/24/24 06/25/24 13:23 15:54 04:57 WBC 12.0 H 10.0 RBC 4.18 L 3.73 L Hgb 13.5 L 12.1 L Hct 39.5 L 35.0 L MCV 94.5 93.8 MCH 32.3 32.4 MCHC 34.2 34.6 RDW 13.5 13.5 Plt Count 218 211 MPV 9.0 L 8.6 L Immature Gran % (Auto) 0.5 H 0.4 Neut % (Auto) 83.1 H 75.2 H Lymph % (Auto) 6.8 L 13.0 L Upton % (Auto) 8.9 9.2 Eos % (Auto) 0.3 1.7 Baso % (Auto) 0.4 0.5 Lymph # (Auto) 0.8 L 1.3 Upton # (Auto) 1.1 0.9 Eos # (Auto) 0.0 0.2 Baso # (Auto) 0.1 0.1 Abs Immat Gran (auto) 0.06 H 0.04 H Absolute Neuts (auto) 10.0 H 7.5 Absolute Nucleated RBC 0.000 0.000 Nucleated RBC % (auto) 0.0 0.0 ESR 79 H Hold Purple Top SEE NOTE PT 13.6 H INR 1.1 Sodium 136 137 Potassium 4.3 3.9 Chloride 103 106 Carbon Dioxide 18 L 22 Anion Gap 19 13 BUN 32 H 19 H Creatinine 1.19 0.81 Estim Creat Clear Calc 51.8 76.1 Estimated GFR 59 > 60 POC Glucose Random Glucose 222 H 128 H Estimat Average Glucose 148 Hemoglobin A1c % 6.8 H Lactic Acid 1.6 Calcium 10.7 H D 9.5 D Total Bilirubin 0.6 Direct Bilirubin 0.2 AST 16 ALT 19 Alkaline Phosphatase 88 C-Reactive Protein 10.30 H Total Protein 7.7 Albumin 4.1 Random Vancomycin 06/25/24 06/25/24 06/25/24 07:04 11:33 17:02 WBC RBC Hgb Hct MCV MCH MCHC RDW Plt Count MPV Immature Gran % (Auto) Neut % (Auto) Lymph % (Auto) Upton % (Auto) Eos % (Auto) Baso % (Auto) Lymph # (Auto) Upton # (Auto) Eos # (Auto) Baso # (Auto) Abs Immat Gran (auto) Absolute Neuts (auto) Absolute Nucleated RBC Nucleated RBC % (auto) ESR Hold Purple Top PT INR Sodium Potassium Chloride Carbon Dioxide Anion Gap BUN Creatinine Estim Creat Clear Calc Estimated GFR POC Glucose 127 H 154 H 335 H Random Glucose Estimat Average Glucose Hemoglobin A1c % Lactic Acid Calcium Total Bilirubin Direct Bilirubin AST ALT Alkaline Phosphatase C-Reactive Protein Total Protein Albumin Random Vancomycin 06/25/24 06/25/24 06/26/24 17:04 21:11 04:25 WBC RBC Hgb Hct MCV MCH MCHC RDW Plt Count MPV Immature Gran % (Auto) Neut % (Auto) Lymph % (Auto) Upton % (Auto) Eos % (Auto) Baso % (Auto) Lymph # (Auto) Upton # (Auto) Eos # (Auto) Baso # (Auto) Abs Immat Gran (auto) Absolute Neuts (auto) Absolute Nucleated RBC Nucleated RBC % (auto) ESR Hold Purple Top PT INR Sodium Potassium Chloride Carbon Dioxide Anion Gap BUN Creatinine 0.97 Estim Creat Clear Calc 63.5 Estimated GFR > 60 POC Glucose 197 H 152 H Random Glucose Estimat Average Glucose Hemoglobin A1c % Lactic Acid Calcium Total Bilirubin Direct Bilirubin AST ALT Alkaline Phosphatase C-Reactive Protein Total Protein Albumin Random Vancomycin 06/26/24 06/26/24 06/26/24 07:35 09:35 11:51 WBC RBC Hgb Hct MCV MCH MCHC RDW Plt Count MPV Immature Gran % (Auto) Neut % (Auto) Lymph % (Auto) Upton % (Auto) Eos % (Auto) Baso % (Auto) Lymph # (Auto) Upton # (Auto) Eos # (Auto) Baso # (Auto) Abs Immat Gran (auto) Absolute Neuts (auto) Absolute Nucleated RBC Nucleated RBC % (auto) ESR 65 H Hold Purple Top PT INR Sodium Potassium Chloride Carbon Dioxide Anion Gap BUN Creatinine Estim Creat Clear Calc Estimated GFR POC Glucose 136 H 184 H Random Glucose Estimat Average Glucose Hemoglobin A1c % Lactic Acid Calcium Total Bilirubin Direct Bilirubin AST ALT Alkaline Phosphatase C-Reactive Protein 3.93 H Total Protein Albumin Random Vancomycin 06/26/24 06/26/24 06/26/24 14:58 16:31 20:54 WBC RBC Hgb Hct MCV MCH MCHC RDW Plt Count MPV Immature Gran % (Auto) Neut % (Auto) Lymph % (Auto) Upton % (Auto) Eos % (Auto) Baso % (Auto) Lymph # (Auto) Upton # (Auto) Eos # (Auto) Baso # (Auto) Abs Immat Gran (auto) Absolute Neuts (auto) Absolute Nucleated RBC Nucleated RBC % (auto) ESR Hold Purple Top PT INR Sodium Potassium Chloride Carbon Dioxide Anion Gap BUN Creatinine Estim Creat Clear Calc Estimated GFR POC Glucose 151 H 188 H Random Glucose Estimat Average Glucose Hemoglobin A1c % Lactic Acid Calcium Total Bilirubin Direct Bilirubin AST ALT Alkaline Phosphatase C-Reactive Protein Total Protein Albumin Random Vancomycin 8.0 L 06/27/24 06/27/24 06/27/24 04:53 07:50 11:39 WBC RBC Hgb Hct MCV MCH MCHC RDW Plt Count MPV Immature Gran % (Auto) Neut % (Auto) Lymph % (Auto) Upton % (Auto) Eos % (Auto) Baso % (Auto) Lymph # (Auto) Upton # (Auto) Eos # (Auto) Baso # (Auto) Abs Immat Gran (auto) Absolute Neuts (auto) Absolute Nucleated RBC Nucleated RBC % (auto) ESR Hold Purple Top PT INR Sodium Potassium Chloride Carbon Dioxide Anion Gap BUN Creatinine 0.90 Estim Creat Clear Calc 68.5 Estimated GFR > 60 POC Glucose 129 H 214 H Random Glucose Estimat Average Glucose Hemoglobin A1c % Lactic Acid Calcium Total Bilirubin Direct Bilirubin AST ALT Alkaline Phosphatase C-Reactive Protein Total Protein Albumin Random Vancomycin 06/27/24 06/27/24 06/27/24 15:22 16:48 20:45 WBC RBC Hgb Hct MCV MCH MCHC RDW Plt Count MPV Immature Gran % (Auto) Neut % (Auto) Lymph % (Auto) Upton % (Auto) Eos % (Auto) Baso % (Auto) Lymph # (Auto) Upton # (Auto) Eos # (Auto) Baso # (Auto) Abs Immat Gran (auto) Absolute Neuts (auto) Absolute Nucleated RBC Nucleated RBC % (auto) ESR Hold Purple Top PT INR Sodium Potassium Chloride Carbon Dioxide Anion Gap BUN Creatinine Estim Creat Clear Calc Estimated GFR POC Glucose 129 H 178 H Random Glucose Estimat Average Glucose Hemoglobin A1c % Lactic Acid Calcium Total Bilirubin Direct Bilirubin AST ALT Alkaline Phosphatase C-Reactive Protein Total Protein Albumin Random Vancomycin 8.3 L 06/28/24 06/28/24 06/28/24 05:22 07:45 10:21 WBC RBC Hgb Hct MCV MCH MCHC RDW Plt Count MPV Immature Gran % (Auto) Neut % (Auto) Lymph % (Auto) Upton % (Auto) Eos % (Auto) Baso % (Auto) Lymph # (Auto) Upton # (Auto) Eos # (Auto) Baso # (Auto) Abs Immat Gran (auto) Absolute Neuts (auto) Absolute Nucleated RBC Nucleated RBC % (auto) ESR Hold Purple Top PT INR Sodium Potassium Chloride Carbon Dioxide Anion Gap BUN Creatinine 0.98 Estim Creat Clear Calc 62.9 Estimated GFR > 60 POC Glucose 119 H 150 H Random Glucose Estimat Average Glucose Hemoglobin A1c % Lactic Acid Calcium Total Bilirubin Direct Bilirubin AST ALT Alkaline Phosphatase C-Reactive Protein Total Protein Albumin Random Vancomycin Airway Mallampati Class: III (implants) TM Dist: <=3cm Neck ROM: Limited Heart: rrr Lungs: cta Assessment and Plan Assessment Anesthesia Assessment: Anesthesia Plan Discussed Final Anesthetic Review Family History of Problems with Anesthesia: No History of Problems with Anesthesia: No NPO: Yes ASA Class: III Final Preanesthetic Review: No Changes in Pt Med Stat, Meds/Allgs Chart Reviewed, Consent Obtained/Reviewed and Anes Risks/Benef Reviewed Patient Risk: Intermediate Procedure Risk: Low Anesthetic Plan Anesthetic Plan: GA Disposition: Standard PACU
--- NOTE | 2024-06-28 11:29 | MHC.SHP ---
Pre-Procedural Eval Section A - 24 Hr Update-Section A only Date of Service: 06/28/24 The patient is an INPATIENT: Yes Changes since office visit: No Cold of Flu in the past 2 weeks, No New Medical Problems, No Changes in Medication and No Patient answered all questions The patient has been examined within 24 hours of the surgical procedure. The History & Physical has been completed within 30 days and I have reviewed it.: Yes Section B - Complete if H&P > 30 days Chief Complaint: elbow infection Allergies: Allergies Allergy/AdvReac Type Severity Reaction Status Date / Time No Known Allergies Allergy Verified 06/24/24 12:28 Exam Exam Comment: Patient was seen and examined by me in preop hold. I also reviewed his CT scan and MRI. He has a left upper extremity abscess that recently ruptured with evidence of chronicity. The plan to take him to the operating room for an I and D and to further evaluate this wound for future planning. The risks and benefits of operative treatment were discussed with the patient and the patient wishes to proceed with surgery. These risks include, but are not limited to risk of damage to blood vessels, nerves, tendons, infection, recurrence, incomplete relief of preoperative symptoms, persistent pain, possible need for further surgery and the risks associated with regional blocks and anesthesia. The plan is to take the patient to the operating room today for the following procedures: 1. Left upper extremity I and D 2. [ ] All of the preoperative paperwork including the consent was filled out today. All the patient's questions were answered. The patient understands that they will be contacted by our director of surgery soon to schedule this procedure Plan Diagnosis/Plan: Unchanged I have reviewed the history and physical and performed a pertinent physical examination on my patient. No changes have occurred unless specified. Time Spent With Patient Time: Total time managing care of this patient today ____ minutes.
--- NOTE | 2024-06-28 11:31 | W.PM.OPN ---
Operative Note Operative Note Date of Service: 06/28/24 Narrative: Operative Note Narrative: Preop diagnosis: 1. Left proximal forearm chronic abscess Postop diagnosis: Same Procedure: 1. Left proximal forearm I and D of chronic abscess Surgeon: Tammy Avalos MD Preparation Department Supervisor: Myles JOVEL Anesthesia: General Anesthesia Findings: No gross purulence, but he had a significant amount of chronic fibrinous exudate and thickened old scar tissue extending for a diameter of approximately 4-5 cm centered over the open wound on the proximal ulnar forearm. Implants: Iodoform drains x2 Tourniquet time: 13 minutes EBL: 5.0 ml Specimen: Cultures x2 sent Drains: None Complications: None Disposition: Brought to the recovery room in stable condition Plan: Admit back to floor Continue antibiotics Resume anticoagulants tonight per hospitalist team. Pull drains tomorrow morning and dressing change. Check cultures and adjust antibiotics. Patient should be seen by outpatient wound care team at discharge. Follow-up in within a week of discharge for wound check, and to check cultures. We may leave that suture in place for up to 3 weeks as long as there is no problem with it blocking drainage from the wound. Indications: The patient is a 78 year old man with a chronic abscess in the proximal aspect of the left forearm over the proximal ulna. . The risks and benefits of operative treatment, including but not limited to risk of damage to blood vessels, nerves, tendons, infection, recurrence, persistent pain or numbness, incomplete resolution of preoperative symptoms, or need for further surgery were discussed with the patient and they wished to proceed with surgery. Procedure: Once consent was obtained patient was brought back to the operating suite and placed in the operating table in a supine position. A regional block was performed by the anesthesia team. Perioperative antibiotics and anesthesia was administered by the anesthesia team. A tourniquet was applied to the proximal aspect of the left upper extremity and the limb was prepped and draped in a standard surgical fashion. The limb was elevated and the tourniquet inflated to 250 mm of mercury for a total tourniquet time of 13 minutes. He had an open wound measuring perhaps 1.8-2 cm in diameter over the proximal aspect of the ulna perhaps 9 or 10 cm distal to the olecranon. There was some fibrinous exudate within, and only a small amount of purulence. I used a 15. Blade and some tenotomy scissors to freshen up the wound edges. I he also debrided the wound of some of the yellow fibrinous exudate. Cultures were obtained x2 from the wound. The 2nd 1 was somewhat deeper in the wound. I also used a rongeur to remove some of the yellow thickened scar tissue deep within the wound. No pockets of purulence were found even as I debrided under the skin out from the open wound. Most of what I found was thickened old scar tissue and fibrinous exudate. Once satisfied with our debridement, the wound was copiously irrigated with normal saline. A 10 mL syringe and an Angiocath was used to assure appropriate irrigation into tight spaces. I then used a single 3-0 nylon suture to reapproximate the central aspect of the wound. Two strips of iodoform gauze were placed as drains to facilitate any drainage. The wound was infiltra kevon with some 1% lidocaine with epinephrine for postop pain control and a sterile dressing was applied. The patient appears to have tolerated the procedure well and with no complications. All digits were well vascularized conclusion of the case.
[2024-06-28 13:48] LABS: Glucose, Whole Blood 270 mg/dL (60-115)
[2024-06-28] MEDS: Acetaminophen 325 MG TABLET PO ×3 (14:09→21:05)
[2024-06-28] MEDS: Insulin Lispro 100 UNIT/ML 3 ML VIAL SUBCUT ×3 (14:09→21:38)
[2024-06-28] MEDS: Metoprolol Succinate ER 100 MG TAB.ER.24H 200 MG PO (15:12)
[2024-06-28] MEDS: Doxazosin Mesylate 2 MG TABLET PO (15:12)
--- NOTE | 2024-06-28 15:48 | P.PNIM_ITS ---
Subjective Subjective Date of Service: 06/28/24 Interval History: f/u left foream /near elbow area cellulitis Review of Systems seems erythema somewhat improving ,has draining Physical Exam 2 Vital Signs: Vital Signs: Last Vital Signs Temp 98.1 F 06/28/24 13:22 Pulse 74 06/28/24 15:12 Resp 17 06/28/24 13:22 BP 136/67 06/28/24 15:12 Pulse Ox 92 06/28/24 13:22 O2 Del Method Room Air 06/28/24 13:22 O2 Flow Rate 6 06/28/24 12:33 BMI result Body Mass Index 31.8 General: AO X 3, no acute distress Resp: CTA bilateral CVS: S1,S2,RRR GI: +BS, NT, nd,bs present. Skin: see pic in H and P. Neuro: motor grossly intact Psych: appropriate affect Objective Data Active Medications Acetaminophen (Acetaminophen 325 Mg Tablet) 650 mg PO Q6H PRN PRN Reason: Pain, Mild (Pain Scale 1-3), fever or headache Last Admin: 06/26/24 21:05 Dose: 650 mg Documented By: ALYCE Acetaminophen (Acetaminophen 325 Mg Tablet) 325 mg PO QID [facility] [place] Last Admin: 06/28/24 15:17 Dose: Not Given Documented By: NGOZI Non-Admin Reason: Duplicate Order Amlodipine Besylate (Amlodipine Besylate 10 Mg Tablet) 10 mg PO DAILY@1700 [facility]; Protocol Last Admin: 06/27/24 16:44 Dose: 10 mg Documented By: SANTA Aspirin (Aspirin Enteric Coated 81 Mg Tablet.) 81 mg PO DAILY [facility] [place] Last Admin: 06/27/24 08:11 Dose: 81 mg Documented By: SANTA Atorvastatin Calcium (Atorvastatin Calcium 40 Mg Tablet) 40 mg PO DAILY [facility] Last Admin: 06/28/24 15:15 Dose: Not Given Documented By: NGOZI Non-Admin Reason: held for surgery then per md to restart in AM Benzonatate (Benzonatate 100 Mg Capsule) 200 mg PO TID PRN PRN Reason: Cough Last Admin: 06/26/24 21:13 Dose: 200 mg Documented By: ALYCE Calcium Carbonate (Calcium Carbonate 750 Mg Tab.Chew) 750 mg PO Q4H PRN PRN Reason: Heartburn Doxazosin Mesylate (Doxazosin Mesylate 2 Mg Tablet) 2 mg PO DAILY@1200 [facility]; Protocol Last Admin: 06/28/24 15:12 Dose: 2 mg Documented By: NGOZI Enoxaparin Sodium (Enoxaparin Sodium 40 Mg/0.4 Ml Syringe) 40 mg SUBCUT Q24H [facility] [place] Last Admin: 06/27/24 21:16 Dose: Not Given Documented By: RONIT Non-Admin Reason: AM scheduled surgery Fluticasone Propionate (Fluticasone Propionate 100 Mcg Blst.W.Dev) 1 puff INHALE RBID [facility] Last Admin: 06/28/24 08:14 Dose: 1 puff Documented By: FABIOLA Glucose (Glucose Gel 15 Gm Gel..Gram.) 15 gm PO Q15M PRN; Protocol PRN Reason: per Hypoglycemia Standing Ord. Piperacillin Sod/Tazobactam (Sod 4.5 gm/ Sodium Chloride) 100 mls @ 200 mls/hr IV Q6H [facility] [place] Last Infusion: 06/28/24 13:00 Dose: Infused Documented By: NGOZI Dextrose (D10) 250 mls @ 750 mls/hr IV Q15M PRN; Protocol PRN Reason: per Hypoglycemia Standing Ord. Vancomycin HCl 1,250 mg/ (Sodium Chloride) 250 mls @ 166.667 mls/hr IV Q12H [facility] Last Infusion: 06/28/24 06:15 Dose: Infused Documented By: RONIT Insulin Human Lispro (Insulin Lispro 100 Unit/Ml 3 Ml Vial) 0 unit SUBCUT QIDACHS [facility] [place]; Protocol Last Admin: 06/28/24 14:09 Dose: 6 unit Documented By: SERENE Losartan Potassium (Losartan Potassium 50 Mg Tablet) 100 mg PO DAILY [facility] [place]; Protocol Last Admin: 06/28/24 15:15 Dose: Not Given Documented By: NGOZI Non-Admin Reason: held for surgery then per md to restart in AM Magnesium Hydroxide (Milk Of Magnesia 30 Ml Oral.Susp) 30 ml PO DAILY PRN PRN Reason: Constipation Melatonin (Melatonin 3 Mg Tablet) 6 mg PO BEDTIME PRN PRN Reason: Insomnia Metoprolol Succinate (Metoprolol Succinate Er 100 Mg Tab.Er.24h) 200 mg PO DAILY@1200 [facility]; Protocol Last Admin: 06/28/24 15:12 Dose: 200 mg Documented By: NGOZI Multivitamins/Vitamin C (Multivitamin Tablet) 1 tab PO DAILY@1700 [facility] [place] Last Admin: 06/27/24 16:43 Dose: 1 tab Documented By: SANTA Nystatin (Nystatin Powder 15 Gm Bottle) 1 appl TOPICAL TID PRN; Protocol PRN Reason: Skin Irritation Ondansetron HCl (Ondansetron Hcl 4 Mg/2 Ml Vial) 4 mg IVPUSH Q8H PRN PRN Reason: Nausea and Vomiting Oxycodone HCl (Oxycodone Hcl Immed Release 5 Mg Tablet) 5 mg PO Q6H PRN PRN Reason: Pain, Moderate(Pain Scale 4-6) Pharmacy Consult (Consult Rx Vancomycin Dosing) 1 each MISCELLANE DAILY PRN PRN Reason: Consult order Sodium Chloride (0.9 % Sodium Chloride Flush 3 Ml Syringe) 3 ml IVFLUSH QSHIFT [facility] [place] Last Admin: 06/28/24 10:02 Dose: 3 ml Documented By: NGOZI Spironolactone (Spironolactone 25 Mg Tablet) 25 mg PO DAILY [facility] [place]; Protocol Last Admin: 06/28/24 15:16 Dose: Not Given Documented By: NGOZI Non-Admin Reason: held for surgery then per md to restart in AM Trazodone HCl (Trazodone Hcl 50 Mg Tablet) 50 mg PO BEDTIME [facility] [place] Last Admin: 06/27/24 21:15 Dose: 50 mg Documented By: RONIT Vitamin D (Cholecalciferol (Vitamin D3) 25 Mcg Tablet) 25 mcg PO Q48H [facility] Last Admin: 06/27/24 16:43 Dose: 25 mcg Documented By: SANTA Labs 06/25/24 04:57 06/28/24 05:22 Labs: Laboratory Results - last 24 hr 06/27/24 06/27/24 06/27/24 15:22 16:48 20:45 Estim Creat Clear Calc Estimated GFR POC Glucose 129 H 178 H Random Vancomycin 8.3 L 06/28/24 06/28/24 06/28/24 05:22 07:45 10:21 Estim Creat Clear Calc 62.9 Estimated GFR > 60 POC Glucose 119 H 150 H Random Vancomycin 06/28/24 13:42 Estim Creat Clear Calc Estimated GFR POC Glucose 270 H Random Vancomycin Microbiology Microbiology Results: Microbiology 06/28/24 Unknown Gram Stain - Final Forearm Left 06/28/24 Unknown Gram Stain - Final Forearm Left Assessment and Plan (1) Cellulitis: Status: Acute Assessment and Plan: 78/m with DM, HTN, HLD, mood disorder, history of MRSA of chest wall wound here with Left elbow abscess, with concern for osteomylitis ( OM) Left elbow cellulitis,some drainage and concern for olecranon OM on CT. vanco : 8(06/26/24) skin wound cult -mrsa VAncomycin + Zosyn started 06/24/24, blood cultures neg@48hrs mri reviewed -? cellulitis /phelgmon proximal to elbow. d/w surgery-reviewed ct and mri-rec ortho eval for near elbow area cellulitis/drainage and proximity to elbow. ortho follow up -possible i&D. DM--diet control -SSI,A1C: 6.8 HTN-ok control -continue Norvasc, metoprolol, losartan and aldactone BPH--Cardura HLD -Lipitor DVT prophylaxis: Lovenox Full code need for inpt: IV Abx for elbow abscess and possible osteomyliis, needs further testing and possible intervention-might need possibel i&D. Quality Stroke Does the patient have a stroke diagnosis?: No VTE Prior VTE?: No VTE Risk Level:: Medical - moderate - high VTE Device Contraindication: Treatment Not Indicated VTE Drug Contraindication: N/A - Med Ordered
[2024-06-28 16:35] LABS: Glucose, Whole Blood 297 mg/dL (60-115)
[2024-06-28] MEDS: Multivitamin TABLET 1 TAB PO (19:01)
[2024-06-28] MEDS: amLODIPine Besylate 10 MG TABLET PO (19:01)
[2024-06-28] MEDS: vancomycin HCL 1,250 MG in 0.9 % Sodium Chloride 250 ML 166.7 MG IV (19:05)
[2024-06-28 19:17] LABS: Vancomycin Random 12.1 mcg/mL (15-20)
--- NOTE | 2024-06-28 19:35 | HE.PHANOTE ---
Vancomycin addendum: Level was drawn late, due at 1500, taken at 1853. Resulting level was 12.1 Predicted AUC is 573, will order a new level for sandy as well
[2024-06-28 20:42] LABS: Glucose, Whole Blood 252 mg/dL (60-115)
[2024-06-28] MEDS: Benzonatate 100 MG CAPSULE 200 MG PO (21:05)
[2024-06-28] MEDS: traZODone HCL 50 MG TABLET PO (21:05)
[2024-06-29] VITALS (11 sets, daily range): BP systolic 112–166; BP diastolic 47–84; PULSE 63–79; RESP 16–18; TEMP 36.4–37.2; O2SAT 94–98
[2024-06-29] MEDS: 0.9 % Sodium Chloride Flush 3 ML SYRINGE IVFLUSH ×2 (00:12→16:24)
[2024-06-29] MEDS: Piperacillin Sodium/Tazobactam 4.5 GM in 0.9 % Sodium Chloride 100 ML IV ×4 (04:01→21:00)
[2024-06-29 04:23] LABS: Creatinine Clr Calc Pharmacy 61.6; Estimated Glomerular Filt Rate > 60
[2024-06-29] MEDS: vancomycin HCL 1,250 MG in 0.9 % Sodium Chloride 250 ML 166.67 MG IV (07:02)
[2024-06-29 07:49] LABS: Glucose, Whole Blood 140 mg/dL (60-115)
[2024-06-29] MEDS: Losartan Potassium 50 MG TABLET 100 MG PO (08:21)
[2024-06-29] MEDS: Acetaminophen 325 MG TABLET PO ×4 (08:23→20:59)
[2024-06-29] MEDS: Atorvastatin Calcium 40 MG TABLET PO (08:24)
[2024-06-29] MEDS: Spironolactone 25 MG TABLET PO (08:24)
[2024-06-29] MEDS: Aspirin Enteric Coated 81 MG TABLET.DR PO (08:24)
[2024-06-29] MEDS: Fluticasone Propionate 100 MCG BLST.W.DEV 1 PUFF INHALE ×2 (08:25→19:33)
[2024-06-29] MEDS: Benzonatate 100 MG CAPSULE 200 MG PO (08:45)
--- NOTE | 2024-06-29 10:59 | HO.POSTANES ---
Post Anesthesia Evaluation Post Anesthesia Evaluation Date of Service: 06/29/24 Vital Signs: Vital Signs Temp Pulse Resp BP Pulse Ox O2 Del Method 06/29/24 08:24 147/67 H 06/29/24 08:21 147/67 H 06/29/24 03:58 97.6 F 63 18 166/84 H 96 Room Air 06/29/24 00:00 97.7 F 70 18 123/47 L 94 Room Air Anesthesia: General LMA Mental Status: Awake Pain Control: Satisfactory Nausea/Vomiting: None Hydration: Adequate Anesthesia-Related Issues: No Anes. Related Issues
[2024-06-29 11:49] LABS: Glucose, Whole Blood 149 mg/dL (60-115)
[2024-06-29] MEDS: Doxazosin Mesylate 2 MG TABLET PO (12:02)
[2024-06-29] MEDS: Metoprolol Succinate ER 100 MG TAB.ER.24H 200 MG PO (12:03)
--- NOTE | 2024-06-29 13:13 | PC.NURSE ---
Report taken from Monie HUNTLEY assumed care of pt at 1100. A&Ox3 skin pwd respirations even unlabored. VSS. Offers no complaints. Denies pain to left elbow, dressing CDI- changed by surgery this morning. POC 149 at lunch no insulin coverage provided. Pt continues to refuse bed assignment as he wants to stay with who is in overflow as well. Awaiting dispo. Will continue to monitor.
[2024-06-29] MEDS: amLODIPine Besylate 10 MG TABLET PO (16:19)
[2024-06-29] MEDS: Cholecalciferol (Vitamin D3) 25 MCG TABLET PO (16:20)
[2024-06-29] MEDS: Multivitamin TABLET 1 TAB PO (16:20)
--- NOTE | 2024-06-29 17:02 | PC.NURSE ---
Pt sitting up in bedside chair, ambulating independently to bathroom as needed, steady gait. Medicated per MAR as scheduled. Offers no complaints. Dinner tray provided, consuming at this time.
[2024-06-29 17:26] LABS: Glucose, Whole Blood 107 mg/dL (60-115)
--- NOTE | 2024-06-29 18:20 | P.PNIM_ITS ---
Subjective Subjective Date of Service: 06/29/24 Interval History: f/u left foream /near elbow area cellulitis Review of Systems seems drainge and erythema improving Physical Exam 2 Vital Signs: Vital Signs: Last Vital Signs Temp 98.3 F 06/29/24 16:00 Pulse 66 06/29/24 12:03 Resp 16 06/29/24 12:00 BP 112/57 L 06/29/24 16:19 Pulse Ox 95 06/29/24 12:00 O2 Del Method Room Air 06/29/24 12:00 O2 Flow Rate 6 06/28/24 12:33 BMI result Body Mass Index 31.8 General: AO X 3, no acute distress Resp: CTA bilateral CVS: S1,S2,RRR GI: +BS, NT, nd,bs present. Skin: see pic in H and P. Neuro: motor grossly intact Psych: appropriate affect Objective Data Active Medications Acetaminophen (Acetaminophen 325 Mg Tablet) 650 mg PO Q6H PRN PRN Reason: Pain, Mild (Pain Scale 1-3), fever or headache Last Admin: 06/26/24 21:05 Dose: 650 mg Documented By: ALYCE Acetaminophen (Acetaminophen 325 Mg Tablet) 325 mg PO QID [facility] Last Admin: 06/29/24 16:20 Dose: 325 mg Documented By: VISHAL Amlodipine Besylate (Amlodipine Besylate 10 Mg Tablet) 10 mg PO DAILY@1700 [facility]; Protocol Last Admin: 06/29/24 16:19 Dose: 10 mg Documented By: VISHAL Aspirin (Aspirin Enteric Coated 81 Mg Tablet.) 81 mg PO DAILY [facility] Last Admin: 06/29/24 08:24 Dose: 81 mg Documented By: RISA Atorvastatin Calcium (Atorvastatin Calcium 40 Mg Tablet) 40 mg PO DAILY [facility] Last Admin: 06/29/24 08:24 Dose: 40 mg Documented By: RISA Benzonatate (Benzonatate 100 Mg Capsule) 200 mg PO TID PRN PRN Reason: Cough Last Admin: 06/29/24 08:45 Dose: 200 mg Documented By: RISA Calcium Carbonate (Calcium Carbonate 750 Mg Tab.Chew) 750 mg PO Q4H PRN PRN Reason: Heartburn Doxazosin Mesylate (Doxazosin Mesylate 2 Mg Tablet) 2 mg PO DAILY@1200 [facility]; Protocol Last Admin: 06/29/24 12:02 Dose: 2 mg Documented By: VISHAL Enoxaparin Sodium (Enoxaparin Sodium 40 Mg/0.4 Ml Syringe) 40 mg SUBCUT Q24H [facility] Last Admin: 06/27/24 21:16 Dose: Not Given Documented By: RONIT Non-Admin Reason: AM scheduled surgery Fluticasone Propionate (Fluticasone Propionate 100 Mcg Blst.W.Dev) 1 puff INHALE RBID [facility] Last Admin: 06/29/24 08:25 Dose: 1 puff Documented By: RISA Glucose (Glucose Gel 15 Gm Gel..Gram.) 15 gm PO Q15M PRN; Protocol PRN Reason: per Hypoglycemia Standing Ord. Piperacillin Sod/Tazobactam (Sod 4.5 gm/ Sodium Chloride) 100 mls @ 200 mls/hr IV Q6H [facility] Last Infusion: 06/29/24 16:58 Dose: Infused Documented By: VISHAL Dextrose (D10) 250 mls @ 750 mls/hr IV Q15M PRN; Protocol PRN Reason: per Hypoglycemia Standing Ord. Vancomycin HCl 1,000 mg/ (Sodium Chloride) 270 mls @ 270 mls/hr IV Q12H [facility] Insulin Human Lispro (Insulin Lispro 100 Unit/Ml 3 Ml Vial) 0 unit SUBCUT QIDACHS [facility]; Protocol Last Admin: 06/29/24 16:41 Dose: Not Given Documented By: VISHAL Non-Admin Reason: parameters not met poc 107 Losartan Potassium (Losartan Potassium 50 Mg Tablet) 100 mg PO DAILY [facility]; Protocol Last Admin: 06/29/24 08:21 Dose: 100 mg Documented By: RISA Magnesium Hydroxide (Milk Of Magnesia 30 Ml Oral.Susp) 30 ml PO DAILY PRN PRN Reason: Constipation Melatonin (Melatonin 3 Mg Tablet) 6 mg PO BEDTIME PRN PRN Reason: Insomnia Metoprolol Succinate (Metoprolol Succinate Er 100 Mg Tab.Er.24h) 200 mg PO DAILY@1200 [facility]; Protocol Last Admin: 06/29/24 12:03 Dose: 200 mg Documented By: VISHAL Multivitamins/Vitamin C (Multivitamin Tablet) 1 tab PO DAILY@1700 [facility] Last Admin: 06/29/24 16:20 Dose: 1 tab Documented By: VISHAL Nystatin (Nystatin Powder 15 Gm Bottle) 1 appl TOPICAL TID PRN; Protocol PRN Reason: Skin Irritation Ondansetron HCl (Ondansetron Hcl 4 Mg/2 Ml Vial) 4 mg IVPUSH Q8H PRN PRN Reason: Nausea and Vomiting Oxycodone HCl (Oxycodone Hcl Immed Release 5 Mg Tablet) 5 mg PO Q6H PRN PRN Reason: Pain, Moderate(Pain Scale 4-6) Pharmacy Consult (Consult Rx Vancomycin Dosing) 1 each MISCELLANE DAILY PRN PRN Reason: Consult order Sodium Chloride (0.9 % Sodium Chloride Flush 3 Ml Syringe) [facility] Last Admin: 06/29/24 16:24 Dose: 3 ml Documented By: VISHAL Spironolactone (Spironolactone 25 Mg Tablet) 25 mg PO DAILY [facility]; Protocol Last Admin: 06/29/24 08:24 Dose: 25 mg Documented By: RISA Trazodone HCl (Trazodone Hcl 50 Mg Tablet) 50 mg PO BEDTIME [facility] Last Admin: 06/28/24 21:05 Dose: 50 mg Documented By: LILY Vitamin D (Cholecalciferol (Vitamin D3) 25 Mcg Tablet) 25 mcg PO Q48H [facility] Last Admin: 06/29/24 16:20 Dose: 25 mcg Documented By: VISHAL Labs 06/25/24 04:57 06/29/24 04:02 Labs: Laboratory Results - last 24 hr 06/28/24 06/28/24 06/29/24 18:53 20:33 04:02 Estim Creat Clear Calc 61.6 Estimated GFR > 60 POC Glucose 252 H Vancomycin Trough Random Vancomycin 12.1 L 06/29/24 06/29/24 06/29/24 07:45 11:44 16:39 Estim Creat Clear Calc Estimated GFR POC Glucose 140 H 149 H 107 Vancomycin Trough Random Vancomycin 06/29/24 17:02 Estim Creat Clear Calc Estimated GFR POC Glucose Vancomycin Trough 17.0 Random Vancomycin Microbiology Microbiology Results: Microbiology 06/24/24 15:54 Blood Culture - Final Blood - Venous No growth after 5 days. 06/24/24 13:23 Blood Culture - Final Blood - Venous No growth after 5 days. 06/28/24 Unknown Gram Stain - Final Forearm Left Routine Culture - Preliminary Culture in progress. 06/28/24 Unknown Gram Stain - Final Forearm Left Routine Culture - Preliminary Culture in progress. Assessment and Plan (1) Cellulitis: Status: Acute Assessment and Plan: 78/m with DM, HTN, HLD, mood disorder, history of MRSA of chest wall wound here with Left elbow abscess, with concern for osteomylitis ( OM) Left elbow cellulitis,some drainage and concern for olecranon OM on CT. vanco : 8(06/26/24) skin wound cult -mrsa VAncomycin + Zosyn started 06/24/24, blood cultures neg@48hrs mri reviewed -? cellulitis /phelgmon proximal to elbow. d/w surgery-reviewed ct and mri-rec ortho eval for near elbow area cellulitis/drainage and proximity to elbow. ortho follow up -s/p i&D(06/28/24),follow cultures . DM--diet control -SSI,A1C: 6.8 HTN- -continue Norvasc, metoprolol, losartan and aldactone BPH--Cardura HLD -Lipitor DVT prophylaxis: Lovenox Full code need for inpt: IV Abx for elbow abscess and possible osteomyliis, needs further testing and possible intervention-might need possibel i&D. Quality Stroke Does the patient have a stroke diagnosis?: No VTE Prior VTE?: No VTE Risk Level:: Medical - moderate - high VTE Device Contraindication: Treatment Not Indicated VTE Drug Contraindication: N/A - Med Ordered
--- NOTE | 2024-06-29 19:02 | PC.NURSE ---
Report received from Aure HUNTLEY, assume care of pt at this time
--- NOTE | 2024-06-29 19:27 | PM.PNORT ---
Subjective Subjective Date of Service: 06/29/24 Interval history: Patient is 78 YO M s/p I&D of L elbow DOS 06/28/24 Patient is resting comfortably in chair Patient reports that the dressing on L elbow slid down overnight No other acute complaints or concerns at this time Physical Exam Vital Signs: Vital Signs: Last Vital Signs Temp 98.3 F 06/29/24 16:00 Pulse 66 06/29/24 12:03 Resp 16 06/29/24 12:00 BP 112/57 L 06/29/24 16:19 Pulse Ox 95 06/29/24 12:00 O2 Del Method Room Air 06/29/24 12:00 O2 Flow Rate 6 06/28/24 12:33 BMI result Body Mass Index 31.8 Extrem: Other: Dressing removed, small amount of serosanguinous drainage noted on dressing Suture and drains placed yesterday are in place Improved erythema from prior to surgery Patient is nontender to gentle palpation about the surgery site No purulent drainage noted or able to be expressed Patient is able to make a closed fist and extend without difficulty Distal sensation intact Capillary refill brisk Procedures Date of Service Date of Service: 06/29/24 Progress Note: A&P Assessment and plan (1) Abscess of elbow: Status: Acute Plan Status post I&D of left elbow abscess DOS 06/28/24 Drains removed today without difficulty Recommend continuing IV antibiotics per medicine Recommend outpatient wound care on discharge Continue with all other recommendations per medicine Time Spent With Patient Time: Total time managing care of this patient today ____ minutes. Quality Stroke Does the patient have a stroke diagnosis?: No VTE Prior VTE?: No VTE Risk Level:: Medical - moderate - high VTE Device Contraindication: Treatment Not Indicated VTE Drug Contraindication: N/A - Med Ordered
[2024-06-29] MEDS: vancomycin HCL 1,000 MG in 0.9 % Sodium Chloride 250 ML 270 MG IV (19:51)
[2024-06-29 20:48] LABS: Glucose, Whole Blood 156 mg/dL (60-115)
[2024-06-29] MEDS: traZODone HCL 50 MG TABLET PO (20:59)
[2024-06-29] MEDS: Insulin Lispro 100 UNIT/ML 3 ML VIAL SUBCUT (20:59)
--- NOTE | 2024-06-29 23:23 | PC.NURSE ---
report given to Desire HUNTLEY
[2024-06-30] MEDS: 0.9 % Sodium Chloride Flush 3 ML SYRINGE IVFLUSH ×2 (00:50→08:50)
[2024-06-30] MEDS: Piperacillin Sodium/Tazobactam 4.5 GM in 0.9 % Sodium Chloride 100 ML IV ×2 (04:57→11:54)
[2024-06-30 05:33] LABS: Estimated Glomerular Filt Rate > 60
[2024-06-30 06:00] VITALS: BP 144/65; PULSE 65; RESP 18; TEMP 36.5; O2SAT 95
[2024-06-30 07:38] LABS: Glucose, Whole Blood 112 mg/dL (60-115)
[2024-06-30] MEDS: vancomycin HCL 1,000 MG in 0.9 % Sodium Chloride 250 ML 270 MG IV (07:48)
--- NOTE | 2024-06-30 08:24 | PM.PNORT ---
Subjective Subjective Date of Service: 06/30/24 Interval history: Patient is 78 YO M s/p I&D of L elbow DOS 06/28/24 Patient is resting comfortably sitting on the side of the bed Patient reports that the dressing on L elbow slid down overnight once again No other acute complaints or concerns at this time Physical Exam Vital Signs: Vital Signs: Last Vital Signs Temp 97.7 F 06/30/24 06:00 Pulse 65 06/30/24 06:00 Resp 18 06/30/24 06:00 BP 144/65 H 06/30/24 06:00 Pulse Ox 95 06/30/24 06:00 O2 Del Method Room Air 06/30/24 06:00 O2 Flow Rate 6 06/28/24 12:33 BMI result Body Mass Index 31.8 Extrem: Other: Dressing removed, small amount of serosanguinous drainage noted on dressing Suture in place Improved erythema from prior to surgery Patient is nontender to gentle palpation about the surgery site No purulent drainage noted or able to be expressed Patient is able to make a closed fist and extend without difficulty Distal sensation intact Capillary refill brisk Procedures Date of Service Date of Service: 06/30/24 Progress Note: A&P Assessment and plan (1) Abscess of elbow: Status: Acute Plan Status post I&D of left elbow abscess DOS 06/28/24 Dressing changed today Daily dressing changes may now be performed by nursing Recommend continuing IV antibiotics per medicine Recommend outpatient wound care on discharge Continue with all other recommendations per medicine Time Spent With Patient Time: Total time managing care of this patient today ____ minutes. Quality Stroke Does the patient have a stroke diagnosis?: No VTE Prior VTE?: No VTE Risk Level:: Medical - moderate - high VTE Device Contraindication: Treatment Not Indicated VTE Drug Contraindication: N/A - Med Ordered
[2024-06-30] MEDS: Spironolactone 25 MG TABLET PO (09:14)
[2024-06-30] MEDS: Atorvastatin Calcium 40 MG TABLET PO (09:15)
[2024-06-30] MEDS: Acetaminophen 325 MG TABLET PO ×2 (09:16→12:00)
[2024-06-30] MEDS: Losartan Potassium 50 MG TABLET 100 MG PO (09:17)
[2024-06-30] MEDS: Aspirin Enteric Coated 81 MG TABLET.DR PO (09:18)
[2024-06-30] MEDS: Benzonatate 100 MG CAPSULE 200 MG PO (09:21)
--- NOTE | 2024-06-30 10:26 | PC.NURSE ---
Took report from off-going RN at 0700 hrs. Pt is a pleasant, cooperative 78 y/o male who is here for treatment of an abscess on left elbow. Wound was drained yesterday and dressing changes are being by surgery. Pt status shows pending admission , but pt wants to leave with after treatment. IV access in right wrist. Ambulates with a steady gait unassisted. All medications as scheduled and pt ate breakfast. Currently sitting in a chair at 's bedside. Verbalizes needs appropriately. Final disposition still pending. Will continue to monitor for changes.
[2024-06-30 11:02] VITALS: PULSE 72; RESP 18; O2SAT 96
[2024-06-30] MEDS: Fluticasone Propionate 100 MCG BLST.W.DEV 1 PUFF INHALE (11:02)
[2024-06-30 11:32] LABS: Glucose, Whole Blood 141 mg/dL (60-115)
[2024-06-30 11:49] VITALS: BP 140/62; PULSE 65
[2024-06-30] MEDS: Metoprolol Succinate ER 100 MG TAB.ER.24H 200 MG PO (11:49)
[2024-06-30] MEDS: Doxazosin Mesylate 2 MG TABLET PO (11:53)
[2024-06-30 12:00] VITALS: RESP 18; TEMP 36.4; O2SAT 96
--- NOTE | 2024-06-30 12:20 | PC.NURSE ---
alert, oriented, calm and cooperative. eating lunch now, now insulin needed. I&D site wrapped with JETHRO wrap by OR team this morning before this RN came on. Per orders, keep dressing in place and change daily with ordered instructions or if dressing is saturated or has slipped. Currently, clean and intact.
--- NOTE | 2024-06-30 13:53 | PM.DS ---
DS: Providers Provider Date of Service: 06/30/24 Date of admission: 06/24/24 21:59 Date of discharge: 06/30/24 Primary care physician: MED Garcia Admitting clinician: Erick Rodriguez Attending physician on admission: Erick Rodriguez Consults: 06/24/24 22:19 Consult to General Surgery Routine Consulting Provider: [facility] General Surgeons Reason for consultation: arm abscess 06/25/24 11:44 Consult to Infectious Diseases Routine Consulting Provider: [facility] Infect[facility] Disease [facility] Reason for consultation: abscess and osteo of elbow 06/25/24 12:29 Consult to Wound Care Routine Reason for consultation: L elbow wound 06/26/24 16:00 Consult to Orthopedics Routine Consulting Provider: [facility] Orthopedic Surgeons Reason for consultation: left elbow cellulitis/phlegmon Has provider been notified: No Attending physician on discharge: Valentine Fitch Discharging clinician: Valentine Fitch DS: Diagnosis Discharge Diagnosis (1) Abscess of elbow: Status: Acute DS: Summary Hospital Course Hospital Course: HPI:78-year-old male with pertinent history of hypertension, buj-obnxvni-qoxgbzvpl diabetes mellitus, mixed hyperlipidemia, mood disorder, history of MRSA who presents to the emergency department for concerns of left arm infection. Of note, patient was admitted in 2020 for left forearm cellulitis with abscess. Patient states he noticed swelling on his left forearm below the left elbow 4 days prior to presentation. It has been progressive over the last few days and it ruptured on the day of presentation draining pus. He does not remember how it started, thinks he may have bumped his elbow on a door. No fever, chills, chest discomfort, palpitations, shortness of breath, abdominal pain, changes in urinary or bowel habits. In the emergency department, imaging with abscess and possible osteomyelitis. Patient was initiated on empiric IV antibiotics. Hospital course: Patient was admitted for elbow cellulitis with some drainage: had leucocytosis , Further workup CT/mri : possible cellulitis with phelgmon formation ,started on iv antibiotics vanco /zosyn , patient and I and D done- wound culture previously(06/24/24) grew mrsa senstive to doxycycline. repeat wound culture grew -staph aureus (suspected similar to previous cultures).d/w id and surgery -patient seems to improved significantly. Added p.o. doxycycline 100 mg p.o. b.i.d. and Augmentin 875 mg p.o. b.i.d. for 10 days. discharge instructions ortho [place]: Topical wound care recommendations: Left Forearm - Elevate on pillows when in bed - Cleanse with NS moist gauze, pat dry. Apply skin prep to periwound. Cover wound bed with Durafiber AG, ABD pad and Gauze wrap. Change every day. Dressing change instructions: wash with saline, apply antibiotic ointment, then cover with gauze, kerlix, and JETHRO bandage. Change dressing daily or with saturation/slipping down off of the wound Recommend follow up out patient Wound Clinic at [address] [place] [id number] and to call for an appointment at time of discharge. [phone].? plan: p.o. doxycycline 100 mg p.o. b.i.d. and Augmentin 875 mg p.o. b.i.d. for 10 days. vna for wound care/dressing change ,disease management follow up wound culture outpatient with pcp,also follow up with ortho. Above management discussed with the patient in detail length he understand and in agreement with the above plan, time spent 40 minute. Time Attestation Total time managing care of this patient today: 40 mintues. Discharge Coordination Time (in mins): 40 min Quality: Safe Use of Opioids Does Pt have an Active Cancer Diagnosis on the Problem List?: No Quality: Stroke Does the patient have a stroke diagnosis?: No Physical Exam Vital Signs: Vital Signs: Last Vital Signs Temp 97.6 F 06/30/24 12:00 Pulse 65 06/30/24 11:49 Resp 18 06/30/24 12:00 BP 140/62 H 06/30/24 11:49 Pulse Ox 96 06/30/24 12:00 O2 Del Method Room Air 06/30/24 12:00 O2 Flow Rate 6 06/28/24 12:33 BMI result Body Mass Index 31.8 General: AO X 3, no acute distress Resp: CTA bilateral CVS: S1,S2,RRR GI: +BS, NT, nd,bs present. Skin: see pic in H and P. Neuro: motor grossly intact Psych: appropriate affect . DS: Data Data Completed and Pending Labs on day of discharge: Laboratory Results - last 24 hr 06/29/24 06/29/24 06/29/24 16:39 17:02 20:42 Creatinine Estim Creat Clear Calc Estimated GFR POC Glucose 107 156 H Vancomycin Trough 17.0 06/30/24 06/30/24 06/30/24 05:10 07:33 11:27 Creatinine 0.92 Estim Creat Clear Calc 67.0 Estimated GFR > 60 POC Glucose 112 141 H Vancomycin Trough Preliminary micro results at discharge 06/28/24 Unknown Routine Culture - Preliminary Forearm Left Staphylococcus aureus 06/28/24 Unknown Routine Culture - Preliminary Forearm Left Staphylococcus aureus Imaging Chest x-ray: Radiologist's impression: ITS Impressions Venous Duplex 06/24/24 12:45 IMPRESSION: No evidence of deep venous thrombosis involving the left upper extremity. Electronically signed by: Kim Tovar MD 06/24/2024 01:26 PM EDT RP Elbow CT 06/24/24 18:53 IMPRESSION: 1. At least 2 subcutaneous abscesses within the dorsal aspect of the proximal forearm measuring 2.6 cm and 1 cm. 2. Subtle cortical erosion may represent underlying osteomyelitis. Recommend further evaluation with MRI elbow with contrast, if clinically indicated. Electronically signed by: Juwan Carlos DO 06/24/2024 09:27 PM EDT RP Elbow MRI 06/25/24 15:48 IMPRESSION: Posterior soft tissue defect with underlying cellulitis and sinus tract/phlegmon as described. No osteomyelitis. Incidental undersurface partial tears of the common flexor and common extensor tendon origin. Electronically signed by: Levon Johnson MD 06/25/2024 04:32 PM EDT RP Discharge Plan Discharge Anticipated Discharge Date/Time: 06/30/24 13:41 Patient Disposition: Home Health Service Discharge Diagnosis: elbow cellulitis Referrals: Lashanda Díaz [Outside] Myles Whaley PA [Physician Maintenance Groundskeeper] - 1 Week (07/06/24 13:00 [facility] Orthopedic Surgeons Myles Whaley PA) Regino Méndez PA [Primary Care Provider] - 1 Week Discharge Medications: New amoxicillin-pot clavulanate 875-125 mg tablet 1 tab PO BID Qty: 20 0RF doxycycline hyclate 100 mg capsule 100 mg PO BID Qty: 20 0RF Continued doxazosin 2 mg tablet 2 mg PO DAILY@1200 Qty: 90 8RF aspirin 81 mg tablet,delayed release (DR/EC) 81 mg PO DAILY Qty: 90 3RF cholecalciferol (vitamin D3) [Vitamin D3] 25 mcg (1,000 unit) Tablet 25 mcg PO Q OTHER DAY@1700 Centrum Silver Men 300-600-300 mcg Tablet 1 tab PO DAILY@1700 amlodipine 10 mg tablet 10 mg PO DAILY@1700 atorvastatin 40 mg tablet 40 mg PO DAILY spironolactone 25 mg tablet 25 mg PO DAILY nystatin 100,000 unit/gram powder 1 appl topical TID PRN (Reason: Skin Irritation) Arnuity Ellipta 100 mcg/actuation blister with device 1 inh inhalation DAILY acetaminophen 325 mg Tablet 325 mg PO QID losartan 100 mg tablet 100 mg PO DAILY trazodone 50 mg tablet 50 mg PO BEDTIME metoprolol succinate 200 mg tablet extended release 24 hr 200 mg PO DAILY@1200 (DME) lancets [FreeStyle Lancets] 28 gauge misc See Rx Instructions .ROUTE .MEDSUPPLY Qty: 100 3RF Rx Instructions: test once per day (DME) FreeStyle Test Strip See Rx Instructions .ROUTE .MEDSUPPLY Qty: 50 3RF Rx Instructions: As directed Discharge Orders: Discharge Order (Routine); Ordered 06/30/24 Ordered By: Valentine Fitch Diet: Advance to usual diet Activity on Discharge: As tolerated Stand Alone Forms: Patient Portal Discharge page Print Language: Georgian Activity Restrictions/Additional Instructions: Topical wound care recommendations: Left Forearm - Elevate on pillows when in bed - Cleanse with NS moist gauze, pat dry. Apply skin prep to periwound. Cover wound bed with Durafiber AG, ABD pad and Gauze wrap. Change every day. Dressing change instructions: wash with saline, apply antibiotic ointment, then cover with gauze, kerlix, and JETHRO bandage. Change dressing daily or with saturation/slipping down off of the wound Recommend follow up out patient Wound Clinic at [address] [place] [phone] and to call for an appointment at time of discharge. [phone].? Care Plan Goals: Patient was admitted for elbow cellulitis with some drainage: had leucocytosis , Further workup CT/mri : possible cellulitis with phelgmon formation ,started on iv antibiotics vanco /zosyn , patient and I and D done- wound culture previously(06/24/24) grew mrsa senstive to doxycycline. repeat wound culture grew -staph aureus (suspected similar to previous cultures).d/w id and surgery -patient seems to improved significantly. Added p.o. doxycycline 100 mg p.o. b.i.d. and Augmentin 875 mg p.o. b.i.d. for 10 days. Health Concerns: As above. Plan of Treatment: As above. Assessment: As above. Discharge Date/Time: 06/30/24 15:08
[2024-06-30 14:00] VITALS: BP 135/64; PULSE 64; RESP 20; TEMP 36.7; O2SAT 95
[2024-06-30] MEDS: Amoxicillin/Potassium Clav 875 MG TABLET PO (14:12)
[2024-06-30] MEDS: Doxycycline Monohydrate 100 MG CAPSULE PO (14:12)
--- NOTE | 2024-06-30 14:57 | MHC.CM.PN ---
PT CLEARED TO DC HOME TODAY WITH VNA AND WOUND CLINIC FOLLOW UP COURTNEY BINGHAM HAS ACCEPTED REFERRAL PT IS AWARE THE VNA WILL NOT COME DAILY, HE WILL BE SENT HOME WITH SUPPLIES PT WILL DRIVE HIMSELF AND HIS S/O HOME
[2024-06-30 15:27] VITALS: BP 135/64; PULSE 64; RESP 20; TEMP 36.7; O2SAT 95
--- NOTE | 2024-06-30 15:28 | W.MHC.F2F ---
Service Date Service Date: 06/30/24 Encounter Date of encounter: 06/30/24 Encounter: cellulitis Reasons for Services Signs and symptoms assessed: Any new arm pain, erythema, drainage Reason for jail: wound care, medication management, medication treatment and teach disease management MD Overseeing Care: Regino Méndez Homebound: Leaving the home is medically contraindicated at this time without the asist of a device and/or another person due th the listed conditions above and below. Reason homebound: weakness related to hospital stay Homebound supporting statement: Patient has near elbow cellulitis and status upon post I&D: Need help with appointments and wound care. Certification: Based on the above findings, I certify that this patient is confined to the home and needs intermittent jail care, physical therapy and/or speech therapy, or continues to need occupational therapy. The patient is under my care, and I have initiated the establishment of the plan of care. The patient will be followed by a physician who will periodically review the plan of care. Time Spent With Patient Time: Total time managing care of this patient today ____ minutes.
--- NOTE | 2024-07-04 08:37 | P.CDIM_ITS ---
PROVIDER RESPONSE TEXT: To clarify, the appropriate diagnosis supported by the clinical indicators: Excisional debridement: The debridement included excision of some of the chronic fibrinous exudate in thickened old scar tissue that was attached directly to the proximal aspect of the ulna and periosteum. QUERY TEXT: PHYSICIAN'S DOCUMENTATION REQUEST Date of Query: 06/29/2024 07:37 AM EDT Patient Name: Lebron Whiteside Admit Date: 06/25/2024 Dear Tammy Avalos MD, A review of the medical record indicates additional documentation may be needed. Please review below and update the documentation accordingly. Clinical Indicators: Procedure performed 06/28/24-Left proximal forearm I&D of chronic abscess. 15. blade and some tenotomy scissors, debrided the wound of some of the yellow fibrinous exudate. I also used a rongeur to remove some of the yellow thickened scar tissue deep within the wound. Cultures were obtained. Could you provide, in the Progress Notes, further clarification regarding the depth of the debridemen t? Excisional debridement Skin, subcutaneous tissue and fascia, muscle etc. Other (explain) Clinically unable to determine (explain) Thank you, Marybeth Vickers, CCS, CDIS Use of terms such as suspected, likely, concern for, or probable (associated with a specific diagnosi s that is being evaluated, monitored, or treated as if it exists) are acceptable and can be coded in the inpatient se tting, when documented at the time of discharge. Please use your independent medical judgment in providing your response. THIS QUERY IS PART OF THE PERMANENT MEDICAL RECORD
== END 2024-06-30 15:08 | disposition home health service (06) | DRG 572 ==
LOC: HO.ED 21:53 → HO.EDOVER 22:04 → HO.S3 06-25 12:31 → HO.EDOVER 06-25 13:05 → HO.S3 06-26 19:32 → HO.EDOVER 06-26 19:56 → HO.S3 06-27 16:56 → HO.EDOVER 06-27 18:25
PROVIDERS: Internal Medicine; Orthopaedic Surgery; Physician Assistant; Physician Assistant Medical; Admitting Provider Student in an Organized Health Care Education/Training Program; Emergency Provider Emergency Medicine Emergency Medical Services; PCP Physician Assistant Medical; Visit Provider Internal Medicine
PROC: 0JBH0ZZ Excision of Left Lower Arm Subcutaneous Tissue and Fascia, Open Approach (ICD-10-PCS; principal; 2024-06-28 11:00)
DX: L02.414 Cutaneous abscess of left upper limb (principal); E78.2 Mixed hyperlipidemia; B95.62 Methicillin resistant Staphylococcus aureus infection as the cause of diseases classified elsewhere; E11.65 Type 2 diabetes mellitus with hyperglycemia; N40.0 Benign prostatic hyperplasia without lower urinary tract symptoms; I10 Essential (primary) hypertension; Z79.82 Long term (current) use of aspirin; Z79.899 Other long term (current) drug therapy
CPT/HCPCS: 36415; 73201; 73223; 80048; 80076; 80202; 82565; 82947; 83036; 83605; 85025; 85610; 85652; 86140; 87040; 87070; 87077; 87186; 87205; 93971; 94640; 99285; A9585; J1100; J1650; J2060; J2405; J2543; J2704; J2795; J3010; J3370; J3371; J7120; Q9967

== ENCOUNTER → 2024-06-24 21:59 | Outpatient (BNV) | payer MEDICARE, OTHER, SELFPAY | PROVIDERS: Admitting Provider Student in an Organized Health Care Education/Training Program; Emergency Provider Emergency Medicine Emergency Medical Services; PCP Physician Assistant Medical; Visit Provider Surgery | DX: L02.419 Cutaneous abscess of limb, unspecified (principal); M86.9 Osteomyelitis, unspecified | CPT/HCPCS: 99222 ==

== ENCOUNTER → 2024-06-24 21:59 | Outpatient (BNV) | payer MEDICARE, OTHER, SELFPAY | PROVIDERS: Admitting Provider Student in an Organized Health Care Education/Training Program; Emergency Provider Emergency Medicine Emergency Medical Services; PCP Physician Assistant Medical; Visit Provider Internal Medicine | DX: S59.919A Unspecified injury of unspecified forearm, initial encounter (principal) | CPT/HCPCS: 99221 ==

== ENCOUNTER → 2024-06-24 21:59 | Outpatient (BNV) | payer MEDICARE, OTHER, SELFPAY | PROVIDERS: Admitting Provider Student in an Organized Health Care Education/Training Program; Emergency Provider Emergency Medicine Emergency Medical Services; PCP Physician Assistant Medical; Visit Provider Student in an Organized Health Care Education/Training Program | DX: M86.9 Osteomyelitis, unspecified (principal); L02.414 Cutaneous abscess of left upper limb | CPT/HCPCS: 99222; 99231; 99232; 99233; 99239; G0180 ==

== ENCOUNTER → 2024-06-24 21:59 | Outpatient (BNV) | payer MEDICARE, OTHER, SELFPAY | PROVIDERS: Admitting Provider Student in an Organized Health Care Education/Training Program; Emergency Provider Emergency Medicine Emergency Medical Services; PCP Physician Assistant Medical; Visit Provider Physician Assistant | DX: L02.414 Cutaneous abscess of left upper limb (principal) | CPT/HCPCS: 11042; 99212; 99213; 99222; 99232 ==

== ENCOUNTER 2024-07-06 12:42 | Outpatient (AMB) | payer MEDICARE, OTHER, SELFPAY ==
--- NOTE | 2024-07-06 12:43 | A.OFFVIS_ITS ---
Intake Visit Reasons: PO: 1 WK I &D L elbow DOS 06/28/24 Intake Note: Lebron is a 78 year old right hand dominant male who presents today post operatively S/P Left proximal forearm I&D of chronic abscess DOS: 06/28/2024 w/ Dr. Avalos. Pt states he is overall feeling well but states he will get some tingling in his arm. Pt states he has a visiting nurse that came to his home yesterday and wrapped his arm. Allergies No Known Allergies Allergy (Verified 07/13/24 13:25) HPI HPI PO: 1 WK I &D L elbow DOS 06/28/24: Details: Patient is a 78-year-old male who presents for one-week postoperative evaluation status post irrigation and debridement of chronic chronic wound of left elbow, DOS 06/28/2024. Today, the patient reports that he is feeling very well, and then he is not experiencing any acute symptoms in his left elbow at this time. Patient states that the dressing has been changed daily by visiting nursing, and that they have expressed no concerns. No other acute complaints or concerns at this time. [facility] Medical History Soft tissue injury of forearm BPH (benign prostatic hyperplasia) HLD (hyperlipidemia) Type 2 diabetes mellitus HTN (hypertension) Surgical History History of nephrolithiasis History of cataract surgery History of removal of cyst History of vasectomy Family History Father CVD (cardiovascular disease) Myocardial infarction Mother Liver cancer Pancreatic cancer Son Diabetes Social History Alcohol intake: never Patient Tobacco Use Status: Never used Tobacco service: No Current occupational status: retired Review of Systems Const All systems reviewed & are unremarkable except as noted in HPI and below Physical Exam Extrem Other: Wound site on ulnar aspect of left proximal forearm clean, dry, intact, suture in place No evidence of any active drainage at this time No surrounding erythema, edema, ecchymosis noted No evidence of infection Patient reports no tenderness to gentle palpation about the incision site Patient is able to flex and extend the left elbow fully without difficulty Patient is able to pronate and supinate the left forearm without difficulty Distal sensation intact Capillary refill brisk Assessment & Plan Assessment & Plan (1) Abscess of elbow: Code(s): L02.419 - Cutaneous abscess of limb, unspecified Category: Medical Plan 1. 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 DOS 06/28/2024 Patient appears to be recovering well postoperatively Patient is educated about the typical recovery course At this time, patient is informed that his surgery site looks very good, and that it does not appear that any further intervention is acutely indicated at this time Antibiotics are refilled for further prevention of any further infection Patient is advised that he should continue with daily dressing changes until the wound has closed fully Patient is amenable to this plan Patient will follow-up in 1 week for repeat assessment, sooner with any acute concerns Coding Level of Care Code Global (77619) Diagnoses Abscess of elbow L02.419
== END 2024-07-06 13:18 | disposition home or self-care (01) ==
PROVIDERS: PCP Physician Assistant Medical
DX: L02.416 Cutaneous abscess of left lower limb (principal)
CPT/HCPCS: 99213

== ENCOUNTER → 2024-07-06 12:42 | Outpatient (BNVA) | payer MEDICARE, OTHER, SELFPAY | PROVIDERS: PCP Physician Assistant Medical | DX: Z48.817 Encounter for surgical aftercare following surgery on the skin and subcutaneous tissue (principal); Z87.2 Personal history of diseases of the skin and subcutaneous tissue; Z98.890 Other specified postprocedural states | CPT/HCPCS: 99212 ==

== ENCOUNTER 2024-07-13 13:08 | Outpatient (AMB) | payer MEDICARE, OTHER, SELFPAY ==
--- NOTE | 2024-07-13 13:24 | MHC.OFFVIS ---
Intake Visit Reasons: PO: 1 WK I &D L elbow DOS 06/28/24 Intake Note: Lebron is a 78 year old right hand dominant male who presents today post operatively S/P Left proximal forearm I&D of chronic abscess DOS: 06/28/2024 w/ Dr. Avalos. Patient reports he is doing well, states discomfort here and there. He has no concerns today. Allergies No Known Allergies Allergy (Verified 07/13/24 13:25) HPI HPI PO: 1 WK I &D L elbow DOS 06/28/24: Details: Patient is a 78-year-old male who presents for two-week postoperative evaluation status post irrigation and debridement of chronic chronic wound of left elbow, DOS 06/28/2024. Today, the patient reports that he is feeling very well, and then he is not experiencing any acute symptoms in his left elbow at this time. Patient states that the dressing has been changed daily by visiting nursing, and that they have expressed no concerns. 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 No other acute complaints or concerns at this time. [facility] Medical History Soft tissue injury of forearm BPH (benign prostatic hyperplasia) HLD (hyperlipidemia) Type 2 diabetes mellitus HTN (hypertension) Surgical History History of nephrolithiasis History of cataract surgery History of removal of cyst History of vasectomy Family History Father CVD (cardiovascular disease) Myocardial infarction Mother Liver cancer Pancreatic cancer Son Diabetes Social History Alcohol intake: never Patient Tobacco Use Status: Never used Tobacco service: No Current occupational status: retired Physical Exam Extrem Other: Wound site on ulnar aspect of left proximal forearm clean, dry, intact, suture in place Wound is completely closed at this time No evidence of any active drainage at this time No surrounding erythema, edema, ecchymosis noted No evidence of infection Patient reports no tenderness to gentle palpation about the incision site Patient is able to flex and extend the left elbow fully without difficulty Patient is able to pronate and supinate the left forearm without difficulty Distal sensation intact Capillary refill brisk Assessment & Plan Assessment & Plan (1) Abscess of elbow: Code(s): L02.419 - Cutaneous abscess of limb, unspecified Category: Medical Plan 1. 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 DOS 06/28/2024 Patient appears to be recovering well postoperatively Patient is educated about the typical recovery course Sutures removed at this time without difficulty At this time, patient is informed that his surgery site looks very good, and that it does not appear that any further intervention is acutely indicated at this time Patient is advised he should continue previously prescribed course of antibiotics until completion for prevention of any further infection Patient is advised that he likely does not need any bulky dressings on the elbow at this time, as the wound appears to have closed, but he can keep it covered if he feels more comfortable with this Patient is amenable to this plan Patient will follow-up in 2 week for repeat assessment, sooner with any acute concerns Coding Level of Care Code Global (85924) Diagnoses Abscess of elbow L02.419
== END 2024-07-13 13:57 | disposition home or self-care (01) ==
PROVIDERS: PCP Physician Assistant Medical
DX: L02.424 Furuncle of left upper limb (principal)
CPT/HCPCS: 99213

== ENCOUNTER → 2024-07-13 13:08 | Outpatient (BNVA) | payer MEDICARE, OTHER, SELFPAY | PROVIDERS: PCP Physician Assistant Medical | DX: Z48.817 Encounter for surgical aftercare following surgery on the skin and subcutaneous tissue (principal); Z87.2 Personal history of diseases of the skin and subcutaneous tissue; Z79.2 Long term (current) use of antibiotics; Z98.890 Other specified postprocedural states | CPT/HCPCS: 99212 ==

== ENCOUNTER 2024-07-27 13:35 | Outpatient (AMB) | payer MEDICARE, OTHER, SELFPAY ==
--- NOTE | 2024-07-27 13:52 | A.OFFVIS_ITS ---
Intake Visit Reasons: PO: I &D L elbow DOS 06/28/24 Intake Note: Lebron is a 78 year old right hand dominant who presents today post operatively S/P Left proximal forearm I&D of chronic abscess w/ Dr Avalos DOS: 06/28/2024. Pt states he is feeling well and denies and fluid coming out anymore. Pt is currently taking Doxycycline per his PCP and will finish Tuesday. Pt still has a visiting nurse coming to his home 2x a week. Allergies No Known Allergies Allergy (Verified 07/27/24 13:52) HPI HPI PO: I &D L elbow DOS 06/28/24: Details: 78-year-old right hand dominant male who presents in the office today 1 month status post left proximal forearm irrigation and debridement of chronic abscess which was performed on 06/28/[address] Harrison. The patient was seen by MED Bueno on 07/13/24 when sutures were removed and advised to continue antibiotics as previously prescribed. While in the office today, the patient reports he is doing well. He denies any fluid drainage from the wound. He is on doxycycline as prescribed by his PCP and will complete the course on 07/29/24. He has VNA service checking on him twice a week. [facility] Medical History Soft tissue injury of forearm BPH (benign prostatic hyperplasia) HLD (hyperlipidemia) Type 2 diabetes mellitus HTN (hypertension) Surgical History History of nephrolithiasis History of cataract surgery History of removal of cyst History of vasectomy Family History Father CVD (cardiovascular disease) Myocardial infarction Mother Liver cancer Pancreatic cancer Son Diabetes Social History Alcohol intake: never Patient Tobacco Use Status: Never used Tobacco service: No Current occupational status: retired Review of Systems Const All systems reviewed & are unremarkable except as noted in HPI and below Physical Exam Const General: cooperative, healthy appearing and no acute distress Resp Effort & Inspection: normal respiratory effort and able to speak in complete sentences Cardio Rate: regular rate Peripheral pulses: Peripheral pulses 2+ throughout GI Palpation (GI): Soft to palpation Skin Lesions: no lesions Rashes: no rashes Extrem Other: Left elbow: Incision site is clean, dry, and intact. No surrounding erythema or drainage. No signs of infection. Pea sized area of a scar tissue. Full ROM of the left elbow. NVI. Assessment & Plan Assessment & Plan (1) Soft tissue injury of forearm: Code(s): S59.919A - Unspecified injury of unspecified forearm, initial encounter Category: Medical (2) Abscess of elbow: Code(s): L02.419 - Cutaneous abscess of limb, unspecified Category: Medical Plan Miesha is a 78-year-old right hand dominant male who presents in the office today 1 month status post left proximal forearm irrigation and debridement of chronic abscess which was performed on 06/28/[address] Harrison. The patient was seen by MED Bueno on 07/13/24 when sutures were removed and advised to continue antibiotics as previously prescribed. While in the office today, the patient reports he is doing well. He denies any fluid drainage from the wound. He is on doxycycline as prescribed by his PCP and will complete the course on 07/29/24. He has VNA service checking on him twice a week. The patient will continue his course of doxycycline. He was educated on signs of infection, which are as follows but not limited to erythema, edema, drainage, or warmth. If he experiences any of these symptoms, he must contact the office immediately or present to the ED for further evaluation and treatment. Follow up will be PRN, or sooner if needed. Patient Instructions: Scribed by jaqueline Prasad scribe, for Odalis Kim PA-C on 07/27/24 at 2:01 pm EST. Coding Level of Care Code Global (76914) Diagnoses Soft tissue injury of forearm S59.919A Abscess of elbow L02.419
== END 2024-07-27 14:31 | disposition home or self-care (01) ==
LOC: HO.HOS 13:35
PROVIDERS: PCP Physician Assistant Medical; Visit Provider Physician Assistant
DX: S59.919A Unspecified injury of unspecified forearm, initial encounter (principal); L02.419 Cutaneous abscess of limb, unspecified
CPT/HCPCS: 99213

== ENCOUNTER → 2024-07-27 13:35 | Outpatient (BNVA) | payer MEDICARE, OTHER, SELFPAY | PROVIDERS: PCP Physician Assistant Medical; Visit Provider Physician Assistant | DX: Z09 Encounter for follow-up examination after completed treatment for conditions other than malignant neoplasm (principal); Z87.2 Personal history of diseases of the skin and subcutaneous tissue; Z79.2 Long term (current) use of antibiotics | CPT/HCPCS: 99212 ==

== ENCOUNTER 2025-07-08 10:37 | Emergency (ER) | payer MEDICARE, OTHER, SELFPAY ==
--- OUTSIDE RECORDS SUMMARY | 2025-06-20 09:30 | XMS_ITS ---
Author Organization [facility] Address [address] [place] [phone] Care Team Providers Care National Stormwater Leader Name Role Phone Regino Pratt Primary Care Provider Unav ailable Molly Lawrence Unavailable [phone] Erwin Encounters Encounter Location Date Provider Diagnosis [address] [phone] 06/20/2025 Molly Howard Plan Of Treatment Next Appt Details Provider Name:Molly Lawrence , 07/11/2025 10:00:00 AM, [address] [place] [address], [phone], Provider Name:Molly Lawrence , 08/22/2025 01:30:00 PM, [address] [place] [address], [phone], Progress Notes * Lebron CROCKERDOB: [birth year] (79 yo M)Acc No.[id number]:06/20/2025 Progress Note Patient: Lebron ANNE Provider: Carmella Lawrence DPM :1945 A ge:79 Y S ex:Male Date:06/20/2025 Address:[id number] Pcp:MED Garcia Subjective: * Chief Complaints: * [address] Erwin[address] * Medical History: Objective: * Vitals: Assessment: Plan: * Treatment: * Images: * The named appointment provid er may or may not be the originator of this progress note, and it is not deemed complete until electronically signed by the appointment provider. Sign off status: Pending * Provider: Carmella Lawrenec DPM Date: 06/20/2025 Generated for Aron valdez/Amanda/Nehemiah on: 0 07/08/2025 09:35 PM EDT
--- NOTE | ~2025-07-08 | XR_ITS ---
EXAMINATION: XR CHEST CLINICAL INFORMATION: couhg 5 days COMPARISON: December 01, 2014 is not available on PACS. TECHNIQUE: PA and lateral views FINDINGS: No hyperinflation. Mild pulmonary reticular pattern. No consolidation, pleural effusion or pneumothorax. Cardiomediastinal silhouette size is normal. Multilevel spondylosis.. XR/XR chest 2V IMPRESSION: No acute airspace disease. Electronically signed by: Dennis Rucker MD 07/08/2025 11:28 AM EDT
[2025-07-08 10:53] VITALS: BP 169/74; PULSE 78; RESP 18; TEMP 37; O2SAT 94; BMI 33.1
--- NOTE | 2025-07-08 10:54 | ED.GENADULT ---
HPI - General Adult General Chief complaint: Upper Respiratory Symptoms Stated complaint: cough Time Seen by Provider: 07/08/25 16:49 History of Present Illness ED Provider: Omega OWEN narrative: The patient is a 79-year-old male with a history of some degree of COPD or asthma who uses Ellipta for his breathing. He says that he has also been prescribed albuterol in the past but he does not think he has any. He has been sick for about 5 days with a cough and a runny nose. He has also felt that he has been wheezing. No definite fevers. He was concerned that his symptoms were going on so long and he was concerned that he was wheezing. He came to the emergency room to make sure he did not have pneumonia. No nausea or vomiting. No chest pain. Related Data Home Medications ?Medication ?Instructions ?Recorded ?Confirmed metoprolol succinate 200 mg 200 mg PO DAILY@1200 08/13/20 06/25/24 tablet,extended release 24 hr trazodone 50 mg tablet 50 mg PO BEDTIME 08/13/20 06/25/24 amlodipine 10 mg tablet 10 mg PO DAILY@1700 01/05/21 06/25/24 cholecalciferol (vitamin D3) 25 25 mcg PO Q OTHER DAY@169901/05/21 06/25/24 mcg (1,000 unit) tablet (Vitamin D3) [id number] 300 mcg-K 60 1 tab PO DAILY@169901/05/21 06/25/24 mcg-lycop 600 mcg-lutein 300 mcg tablet (Centrum Silver Men) acetaminophen 325 mg tablet 325 mg PO QID 06/25/24 06/25/24 atorvastatin 40 mg tablet 40 mg PO DAILY 06/25/24 06/25/24 fluticasone furoate 100 1 inh inhalation DAILY 06/25/24 06/25/24 mcg/actuation blister powder for inhalation (Arnuity Ellipta) losartan 100 mg tablet 100 mg PO DAILY 06/25/24 06/25/24 nystatin 100,000 unit/gram topical 1 appl topical TID PRN Skin 06/25/24 06/25/24 powder Irritation spironolactone 25 mg tablet 25 mg PO DAILY 06/25/24 06/25/24 Previous Rx's ?Medication ?Instructions ?Recorded blood sugar diagnostic (FreeStyle #50 ea 08/13/20 Test strips) lancets 28 gauge (FreeStyle #100 ea 08/13/20 Lancets) doxazosin 2 mg tablet 2 mg PO DAILY@1200 #90 tabs 07/01/21 aspirin 81 mg tablet,delayed 81 mg PO DAILY #90 tabs 01/10/22 release doxycycline hyclate 100 mg capsule 100 mg PO BID #20 caps 07/10/24 albuterol sulfate 90 mcg/actuation 2 puff inhalation Q4-6H PRN 07/08/25 aerosol inhaler (Ventolin HFA) shortness of breath or wheezing #8.5 grams azithromycin 250 mg tablet 250 mg PO DAILY 4 days #4 tabs 07/08/25 Allergies Allergy/AdvReac Type Severity Reaction Status Date / Time No Known Allergies Allergy Verified 07/08/25 10:55 Review of Systems Review of Systems: Yes all other systems are reviewed and are negative [facility] Past Medical History Medical History Soft tissue injury of forearm BPH (benign prostatic hyperplasia) HLD (hyperlipidemia) Type 2 diabetes mellitus HTN (hypertension) Surgical History History of nephrolithiasis History of cataract surgery History of removal of cyst History of vasectomy Family History Family History Father CVD (cardiovascular disease) Myocardial infarction Mother Liver cancer Pancreatic cancer Son Diabetes Social History Social History Alcohol intake: never Patient Tobacco Use Status: Never used Tobacco Advance Directives: Yes Advance Directives Information Provided: No Advance Directives on File: No service: No Current occupational status: retired Physical Exam ED Vital Signs: Vital Signs - 24 hr 07/08/25 16:42 07/08/25 17:14 Temperature 97.7 F 97.7 F Pulse Rate 68 68 Respiratory Rate 16 16 Blood Pressure 140/77 H 140/77 H Pulse Oximetry 95 95 Oxygen Delivery Method Room Air Room Air BMI result Body Mass Index 33.1 Const Other: The patient is a 79-year-old man who was sitting in a chair. He was awake and alert. He did not appear uncomfortable or in any distress. No increased work of breathing. HENMT Other: The face is symmetrical. Mucous membranes moist. Eyes Other: The patient has bilateral ectropion of the lower eyelids. This looks chronic. Eyes are otherwise unremarkable. Neck Neck: Yes normal visual inspection, Yes full ROM and Yes no JVD Resp Other: No increased work of breathing. Possibly some minimal wheezing but no severe wheezing. No crackles. No rhonchi. Cardio Rate: regular rate Rhythm: regular rhythm Heart sounds: S1 normal heart sound present and S2 normal heart sound present GI Other: Abdomen is soft and nontender Skin Other: The skin is dry and unremarkable Neuro Other: The patient is a somewhat frail-appearing 79-year-old. He is awake and alert with a normal mental status. Cranial nerves are intact. He moves his extremities symmetrically. Extrem Other: No calf tenderness. Course Course Course Narrative: This is a rapid medical exam performed by Antony Malcolm NP: Additional HPI, ROS, PE not included below will be deferred to primary provider. Patient is a 79-y/o M presenting to the ED with complaint of cough since Thurs night, last night developed wheezing. Denies fevers. No known sick contacts. Subjective fever Thurs night, none since. Plan: labs, CXR, viral serology Medications Administered Discontinued Medications Generic Name Dose Route Start Last Admin Trade Name Ectorq PRN Reason Stop Dose Admin Acetaminophen 975 mg 07/08/25 16:57 07/08/25 17:06 Acetaminophen 325 Mg Tablet PO 07/08/25 16:58 975 mg ONCE ONE Administration Azithromycin 500 mg 07/08/25 16:57 07/08/25 17:06 Azithromycin 500 Mg Tablet PO 07/08/25 16:58 500 mg ONCE ONE Administration Medical Decision Making Medical Decision Making [facility] Narrative: The patient presents with 3 days of symptoms consistent with a respiratory infection. He has a negative chest x-ray and a normal white count. He says he does not have a history of COPD or asthma but he has a Ellipta as a prescription medication. I suspect he may have some degree of an asthmatic bronchitis or a mild COPD exacerbation. I do not think he requires oral steroids. He will be placed on a course of azithromycin. He says he does not have a current albuterol inhaler. He will be prescribed an albuterol inhaler as well. Overall he looked quite stable. He should follow up with his PCP or return to the ER if worse. Lab Data 07/08/25 11:29 07/08/25 11:29 Labs: Lab Results 07/08/25 Range/Units 11:29 WBC 6.7 (4.8-10.8) X10*3/uL RBC 4.63 D (4.60-5.80) X10*6/uL Hgb 14.7 D (14.0-18.0) g/dl Hct 43.0 D (42.0-52.0) % MCV 92.9 (80.0-98.0) fL MCH 31.7 (27.0-33.0) pg MCHC 34.2 (31.0-36.0) g/dl RDW 13.8 (11.0-16.0) % Plt Count 193 (160-400) X10*3/uL MPV 9.1 L (9.4-12.4) fL Immature Gran % (Auto) 0.6 H (0.0-0.4) % Neut % (Auto) 76.6 H (45-73) % Lymph % (Auto) 12.8 L (20-40) % [place] % (Auto) 6.9 (2-11) % Eos % (Auto) 2.7 (0-4) % Baso % (Auto) 0.4 (0-2) % Lymph # (Auto) 0.9 L (1.2-4.9) X10*3/uL [place] # (Auto) 0.5 (0.1-1.2) X10*3/uL Eos # (Auto) 0.2 (0.0-0.4) X10*3/uL Baso # (Auto) 0.0 (0.0-0.2) X10*3/uL Abs Immat Gran (auto) 0.04 H (0.00-0.03) X10*3/uL Absolute Neuts (auto) 5.1 (2.0-8.3) x10*3/uL Absolute Nucleated RBC 0.000 (0.0-0.012) X10*3/uL Nucleated RBC % (auto) 0.0 (0.0-0.2) /100WBC Sodium 138 (135-145) mmol/L Potassium 4.4 (3.3-5.1) mmol/L Chloride 102 (96-108) mmol/L Carbon Dioxide 28 (22-29) mmol/L Anion Gap 12 (12-20) BUN 16 (9-16) mg/dL Creatinine 0.99 (0.5-1.4) mg/dL Estim Creat Clear Calc 62.4 Estimated GFR > 60 Random Glucose 325 H (60-115) mg/dL Calcium 9.7 (8.4-10.2) mg/dL Total Bilirubin 0.6 (0.0-1.0) mg/dL AST 30 (5-37) U/L ALT 36 (0-40) U/L Alkaline Phosphatase 112 (39-117) U/L Total Protein 7.6 (6.5-8.0) g/dL Albumin 4.6 (3.5-5.0) g/dL COVID-19 ([place]) Negative (Negative) COVID-19 Clin Com See Note Influenza Type A ([place]) Negative (Negative) Influenza Type B ([place]) Negative (Negative) Influenza A & B Note See Note Discharge Plan Discharge Clinical Impression: Asthmatic bronchitis Patient Disposition: Home, Self-Care Additional Instructions: Your testing in the emergency room today is very reassuring. There was no sign of pneumonia. I think he may have some degree of bronchitis. Please take the antibiotic azithromycin as prescribed. This medication should be taken once a day. You received a dose here in the emergency room. Take your next dose tomorrow. I have also sent a prescription for albuterol to your pharmacy. This is a bronchodilator medication that should help if you have any ongoing wheezing. You may take 2 puffs every 4 hours as needed. Please make sure that you continue your Ellipta every day. Please follow up with your regular doctor. Return to the emergency room if significantly worse. Prescriptions: New azithromycin 250 mg tablet 250 mg PO DAILY 4 Days Qty: 4 0RF Rx Instructions: start on day 2 of therapy albuterol sulfate [Ventolin HFA] 90 mcg/actuation HFA aerosol inhaler 2 puff inhalation Q4-6H PRN (Reason: shortness of breath or wheezing) Qty: 8.5 0RF No Action doxazosin 2 mg tablet 2 mg PO DAILY@1200 Qty: 90 8RF aspirin 81 mg tablet,delayed release (DR/EC) 81 mg PO DAILY Qty: 90 3RF doxycycline hyclate 100 mg capsule 100 mg PO BID Qty: 20 0RF cholecalciferol (vitamin D3) [Vitamin D3] 25 mcg (1,000 unit) Tablet 25 mcg PO Q OTHER DAY@1700 Centrum Silver Men 300-600-300 mcg Tablet 1 tab PO DAILY@1700 amlodipine 10 mg tablet 10 mg PO DAILY@1700 atorvastatin 40 mg tablet 40 mg PO DAILY spironolactone 25 mg tablet 25 mg PO DAILY nystatin 100,000 unit/gram powder 1 appl topical TID PRN (Reason: Skin Irritation) Arnuity Ellipta 100 mcg/actuation blister with device 1 inh inhalation DAILY acetaminophen 325 mg Tablet 325 mg PO QID losartan 100 mg tablet 100 mg PO DAILY trazodone 50 mg tablet 50 mg PO BEDTIME metoprolol succinate 200 mg tablet extended release 24 hr 200 mg PO DAILY@1200 (DME) lancets [FreeStyle Lancets] 28 gauge misc See Rx Instructions .ROUTE .MEDSUPPLY Qty: 100 3RF Rx Instructions: test once per day (DME) FreeStyle Test Strip See Rx Instructions .ROUTE .MEDSUPPLY Qty: 50 3RF Rx Instructions: As directed Referrals: Regino Méndez PA [Primary Care Provider, Internal Medicine] Interventions: ED Discharge Assessment Last Done: 07/08/25 17:14 Discharge Date/Time: 07/08/25 17:14 Print Language: Belarusian
[2025-07-08 11:35] LABS: MANUAL DIFF FLAG NO
[2025-07-08 11:38] LABS: Hematocrit 43.0 % (42.0-52.0); Hemoglobin 14.7 g/dl (14.0-18.0); Imm Gran Abs Auto 0.04 X10*3/uL (0.00-0.03); Imm Gran Pct Auto 0.6 % (0.0-0.4); Lymphocytes Absolute Auto 0.9 X10*3/uL (1.2-4.9); Mean Corpuscular HGB Conc 34.2 g/dl (31.0-36.0); Mean Corpuscular Hemoglobin 31.7 pg (27.0-33.0); Mean Corpuscular Volume 92.9 fL (80.0-98.0); NRBC Abs Auto 0.000 X10*3/uL (0.0-0.012); NRBC Pct Auto 0.0 /100WBC (0.0-0.2); Platelet Count 193 X10*3/uL (160-400); Red Blood Count 4.63 X10*6/uL (4.60-5.80); White Blood Count 6.7 X10*3/uL (4.8-10.8)
[2025-07-08 11:51] LABS: COVID-19 Test Negative (Negative); IDNOW Serial# 08D9AD1C
[2025-07-08 11:53] LABS: IDNOW Serial# 6674DD1D; Influenza B2 Negative (Negative)
[2025-07-08 12:00] LABS: Alanine Aminotransferase 36 U/L (0-40); Albumin Level 4.6 g/dL (3.5-5.0); Alkaline Phosphatase 112 U/L (39-117); Anion Gap 12 (12-20); Aspartate Amino Transferase 30 U/L (5-37); Blood Urea Nitrogen 16 mg/dL (9-16); Calcium 9.7 mg/dL (8.4-10.2); Carbon Dioxide 28 mmol/L (22-29); Chloride 102 mmol/L (96-108); Creatinine Clr Calc Pharmacy 62.4; Estimated Glomerular Filt Rate > 60; Potassium 4.4 mmol/L (3.3-5.1); Sodium 138 mmol/L (135-145); Total Protein 7.6 g/dL (6.5-8.0)
[2025-07-08 16:42] VITALS: BP 140/77; PULSE 68; RESP 16; TEMP 36.5; O2SAT 95
[2025-07-08 17:14] VITALS: BP 140/77; PULSE 68; RESP 16; TEMP 36.5; O2SAT 95
--- OUTSIDE RECORDS SUMMARY | 2025-07-08 21:36 | XMS_ITS | Clinical Summary ---
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 Active aspirin 81 mg EC tablet Take 1 Tablet by mouth daily. 08/15/20 24 Active cholecalciferol (VITAMIN D-3) 10 mcg (400 unit) tablet Take by mouth daily. Active fluticasone propionate (FLONASE) 50 mcg/actuation nasal spray 1 Watson by Nasal route 2 times daily. 10/03/20 20 Active nystatin (MYCOSTATIN) 100,000 unit/gram powder Apply to affected area 3 times daily as needed 04/20/20 24 Active simethicone (MYLICON,GAS-X) 125 mg capsule Take 1 Capsule by mouth 4 times daily. 12/14/19 24 Active triamcinolone (KENALOG) 0.1 % lotion Apply to affected areas twice daily as needed sparingly 07/23/20 21 Active blood sugar diagnostic (FreeStyle Lite Strips) test strip USE TO TEST BLOOD SUGAR ONCE DAILY DX CODE E11.9 100 strip 1 11/14/19 25 Active losartan (COZAAR) 100 mg tablet TAKE 1 TABLET BY MOUTH EVERY DAY 90 tablet 1 11/14/19 25 Active traZODone (DESYREL) 50 mg tabletIndications :Type 2 diabetes mellitus without complications ([facility] V24, [facility] V28),Pure hypercholesterole rito, unspecified TAKE 1 TABLET BY MOUTH EVERYDAY AT BEDTIME 90 tablet 3 11/14/19 25 Active atorvastatin (LIPITOR) 40 mg tablet TAKE 1 TABLET BY MOUTH EVERY DAY 90 tablet 1 11/14/19 25 Active spironolactone (ALDACTONE) 25 mg tablet Take 1 tablet (25 mg total) by mouth 1 (one) time each day. 90 tablet 3 12/21/19 25 Active meloxicam (MOBIC) 15 mg tablet TAKE 1 TABLET BY MOUTH DAILY NEEDED FOR PAIN 90 tablet 3 12/21/19 25 Active omeprazole (PriLOSEC) [address] capsule Take 1 capsule (20 mg total) by mouth 1 (one) time each day. Do not crush or chew. 90 capsule 3 12/21/19 25 Active metoprolol succinate (TOPROL-XL) 200 mg 24 hr tabletIndications :Type 2 diabetes mellitus without complications ([facility] V24, [facility] V28),Pure hypercholesterole rito, unspecified TAKE 1 TABLET BY MOUTH EVERY DAY 90 tablet 1 01/15/20 25 Active Arnuity Ellipta 100 mcg/actuation blister with device inhaler INHALE 1 PUFF INTO LUNGS ONCE DAILY 30 each 2 03/14/20 25 Active amLODIPine (NORVASC) 10 mg tabletIndications :Type 2 diabetes mellitus without complications (CMS/HCC V24, [facility] V28),Pure hypercholesterole rito, unspecified TAKE 1 TABLET BY MOUTH EVERY DAY 90 tablet 1 05/13/20 25 Active doxazosin (CARDURA) 2 mg tabletIndications :Type 2 diabetes mellitus without complications (CMS/HCC V24, [facility] V28),Pure hypercholesterole rito, unspecified TAKE 1 TABLET BY MOUTH EVERY DAY 90 tablet 3 05/14/20 25 Active metFORMIN XR (GLUCOPHAGE-XR) 500 mg 24 hr tablet Take 2 tablets (1,000 mg total) by mouth 1 (one) time each day with breakfast. Do not crush, chew, or split. 180 each 3 05/22/20 25 Active hydrocortisone (ANUSOL-HC) 2.5 % rectal cream APPLY 1 UNITS TOPICALLY 3 TIMES DAILY NEEDED FOR OTHER (RECTAL ITCHING, PAIN). 30 g 5 06/17/20 25 Active hydrocortisone (ANUSOL-HC) 2.5 % rectal cream Apply 1 Units topically 3 times daily as needed for Other (rectal itching, pain). 04/20/20 24 025 Discontinued Active Problems Problem Noted Date Diagnosed Date Medical orders for life-sust aining treatment (MOLST) form in chart 12/21/2024 PVC's (premature ventricular contractions) 05/17 GERD (gastroesophageal reflux disease) Chronic cough 10/03/2020 Venous insufficiency of both lower extremities 1 12/04/2019 BPH (benign prostatic hyperplasia) 08/28/2020 Gout 08/28/2020 Hypercholesteremia 08/28/2020 Hypertension 08/28/2020 Type 2 diabetes mellitus ([facility] V24, [facility] V 28) 08/28/2020 Vitamin D insufficiency 08/28/2020 Encounters Date Type Department Care Team Description 05/22/2025 3:30 PM EDT Office Visit Adult Medicine [address] [phone] Regino Méndez PA Type 2 diabetes mellitus without complication, without long-term current use of insulin ([facility] V24, [facility] V28) (Primary Dx); Benign prostatic hyperplasia, unspecified whether lower urinary tract symptoms present; Gastroesophageal reflux disease without esophagitis; Primary hypertension; Hypercholesteremia; Gout, unspecified cause, unspecified chronicity, unspecified site; Venous insufficiency of both lower extremities; Other hyperparathyroidism ([facility] V24) 05/22/2025 Telephone Adult Medicine [address] [phone] Regino Méndez PA from Last 3 Months Immunizations Name Administration Dates Next Due Influenza Quadravalent, MDCK , 0.5ml, with preservative (Flucelvax) 6mo and older 08/01/2019 Influenza trivalent, 0.5mL ( Fluad) 65yo and older 07/20/2024,07/23/2021,07/24/2018,2016,06/23/2016,07/23/2015 Influenza, Unspecified 08/07/2020 Pneumococcal conjugate 13 va lent (Prevnar 13, PCV13) 2mo and older 07/02/2016 Pneumococcal conjugate 20 va lent (Prevnar 20, PCV 20) 2mo and older 12/21/2024 Tdap Tetanus diptheria acell ular pertussis (Boostrix; Adacel) 7yo and older 11/20/2021 Zoster Live 12/14/2012 Surgical History Surgery Date Site/Laterality Comments VASECTOMY 1995 PROCEDURE: HI VASECTOMY UNI/BI SPX W/POSTOP SEMEN EXAMS OTHER SURGICAL HISTORY PROCEDURE: BU SKIN CYST COLONOSCOPY 07/28/2015 PROCEDURE: HISTORICAL COLONOSCOPY; COMMENT: 12mm polyp in colon, 7mm polyp in splenic flexure, diverticulosis COLONOSCOPY 05/08/2020 PROCEDURE: HISTORICAL COLONOSCOPY; COMMENT: diverticulosis in sigmoid colon LITHOTRIPSY 2010 PROCEDURE: HISTORICAL LITHOTRIPSY; COMMENT: Dr Walker Medical History Medical History Date Comments History of colon polyps 02/11/2021 DX:Histo ry of colon polyps; COMMENT: Seen on colonoscopy from 07/28/2015 History of diverticulosis 02/11/2021 DX:His tory of diverticulosis Venous insufficiency of both lower extremities 10/03/2020 DX:Venous insufficiency of b oth lower extremities Chronic cough 10/03/2020 DX:Chronic cough BPH (benign prostatic hyperplasia) 08/28/2020 DX:BPH (benign prostatic hyperplasia) Gout 08/28/2020 DX:Gout Vitamin D insufficiency 08/28/2020 DX:Vitam in D insufficiency Hypertension 08/28/2020 DX:Hypertension Hypercholesteremia 08/28/2020 DX:Hyperchole steremia Type 2 diabetes mellitus ([facility] S/HCC V24, CMS/HCC V28) 08/28/2020 DX:Type 2 diabetes mellitus (HCC) GERD (gastroesophageal reflux disease) 02/11/2021 DX:GERD (gastroesophageal reflux disease) History of kidney stones 02/11/2021 DX:Hist ory of kidney stones History of hematuria 02/11/2021 DX:History of hematuria History of cataract 02/11/2021 DX:History o f cataract; COMMENT: Surgery with Dr. Lawson Family History Medical History Relation Name Comments Coronary artery disease Father COVI D, [place] Asthma Mother liver/pancreati c cancer Asthma Sister Relation Name Status Comments Father Mother Sister Alive Social History Tobacco Use Types Packs/Day Years Used Date Smoking Tobacco: Former Smokeless Tobacco: Never Tobacco Cessation:Counseling Given: Not Answered Alcohol Use Standard Drinks/Week Comments Yes 1 (1 standard drink = 0.6 oz pur e alcohol) Housing Instability Answer Date Recorde d Are you worried that in the next 2 months you may not have stable housing? No 05/22/2025 Food Access & Nutrition Answer Date Rec orded Do you have access to a vari ety of food including fruits and vegetables? Yes 05/22/2025 Health Literacy Answer Date Recorded How often do you need to hav e someone help you when you read instructions, pamphlets, or other written material from your doctor or pharmacy? Never 05/22/2025 Caregiver: How often do you need to have someone help you when you read instructions, pamphlets, or other written material from your doctor or pharmacy? Not on file 05/22/2025 Financial Risk Answer Date Recorded How hard is it for you to pa y for the very basics like food, housing, medical care, and air conditioning / heating? Not very hard 05/22/2025 Transportation Answer Date Recorded Has the lack of transportati on kept you from meetings, work, or from getting things needed for daily living? No Has the lack of transportati on kept you from medical appointments or from getting medications? No 05/22/2025 Social Isolation Answer Date Recorded How often do you feel lonely or isolated from th ose around you? Never 05/22/2025 Food Risk Answer Date Recorded Within the past 12 months we worried whether our food would run out before we got money to buy more. Never true 05/22/2025 Within the past 12 months th e food we bought just didn't last and we didn't have money to get more. Never true 05/22/2025 Dependent Care Answer Date Recorded Do you need help finding or paying for care for your loved ones. For example, children's ministry director or elderly care for an older adult? No 05/22/2025 Education Answer Date Recorded Do you think completing more education or training, like finishing a GED, going to college, or learning a trade, would be helpful for you? No 05/22/2025 Employment and Income Answer Date Recor ded During the last four weeks, have you been actively looking for work? No 05/22/2025 Living Situation Answer Date Recorded What is your living situation? 0 05/22/2025 Sex and Gender Information Value Date Recorded Sex Assigned at Not on file Legal Sex Male 5:14 AM EST Gender Identity Not on file Sexual Orientation Not on file Obstetrics History Last Filed Vital Signs Vital Sign Reading Time Taken Comments Blood Pressure 107/60 05/22/2025 3:21 PM EDT Pulse 67 05/22/2025 3:21 PM EDT Temperature 35.8 C (96.5 F) 05/22/2025 3:21 PM EDT Respiratory Rate 15 05/22/2025 3:21 PM EDT Oxygen Saturation 94% 05/22/2025 3:21 PM EDT Inhaled Oxygen Concentration - - Weight 92.9 kg (204 lb 12.8 oz) 05/22/2025 3:21 PM EDT Height 166.4 cm (5' 5.5 ) 05/22/2025 3:21 PM EDT Body Mass Index 33.56 05/22/2025 3:21 PM EDT Plan of Treatment Upcoming Encounters Date Type Department Care Team (Late st Contact Info) Description 09/11/2025 12:00 PM EST Office Visit [facility] Medicine [address] [phone] Regino Méndez PA [address] [place] [phone] Health Maintenance Due Date Last Done Comments Zoster Vaccines (2 of 3) 02/08/2013 12/14/2012 RSV Immunization Adult Patients (1 - 1-dose 75+ series) 2020 Falls Risk Assessment 04/20/2025 04/20/2024 COVID-19 Vaccine ( - season) 2025 Influenza Vaccine (#1) 2025 , 07/23/2021, 08/20/2020, Additional history exists Medicare Annual Wellness Visit 08/15/2025 08/15/2024 Diabetes: Blood Sugar Control Test (HGBA1C) 11/20/2025 05/20/2025, 12/19/2024, 04/16/2024, Additional history exists Diabetes: Annual Foot Exam 05/09/2026 05/09/2025, Diabetes: Annual Urine Albumin-Creatinine Ratio (uACR) 05/20/2026 05/20/2025, 12/19/2024, 04/16/2024 Diabetes: Annual GFR (Glomerular Filtration Rate) 05/20/2026 05/20/2025, 12/19/2024, 04/16/2024, Additional history exists Hypertension/CHF/CAD Annual BMP Blood Test 05/20/2026 05/20/2025, 12/19/2024, 04/16/2024, Additional history exists Social Influencers of Health Screening 05/22/2026 05/22/2025 Diabetes: Annual Retina Eye Exam 06/26/2026 06/26/2025, 06/19/2024 Colorectal Cancer Screening: Colonoscopy 05/08/2030 05/08/2020 Cholesterol Screening (Lipid Panel) 05/20/2030 05/20/2025, 12/19/2024, 04/16/2024, Additional history exists DTaP,Tdap,and Td Vaccines (2 - Td or Tdap) 11/20/2031 11/20/2021 Pneumococcal Vaccine: 50+ Years Completed 12/21/2024, 07/02/2016 Hepatitis C Screening Completed 05/20/2025 Depression Screening Completed 05/22/2025, 08/15/20 HIB Vaccines Aged Out No longer eligi ble based on patient's age to complete this topic HPV Vaccines Aged Out No longer eligi ble based on patient's age to complete this topic Hepatitis A Vaccines Aged Out No long er eligible based on patient's age to complete this topic Hepatitis B Vaccines Aged Out No long er eligible based on patient's age to complete this topic IPV Vaccines Aged Out No longer eligi ble based on patient's age to complete this topic MMR Vaccines Aged Out No longer eligi ble based on patient's age to complete this topic Meningococcal ACWY Vaccine Aged Out N o longer eligible based on patient's age to complete this topic Meningococcal B Vaccine Aged Out No l onger eligible based on patient's age to complete this topic RSV Immunization Patients Under 20 months Aged Out No longer eligible based on patient's age to complete this topic Varicella Vaccines Aged Out No longer eligible based on patient's age to complete this topic Procedures Procedure Name Priority Date/Time Associated Diagnosis Comments EXTERNAL DIABETIC RETINA EYE EXAM Routine 06/26/2025 10:42 AM EDT CBC WITH AUTO DIFFERENTIAL Routine 05/20/2025 12:49 PM EDT Type 2 diabetes mellitus without complications ([facility] V24, [facility] V28) Pure hypercholesterolemia, unspecified Type 2 diabetes mellitus without complication, without long-term current use of insulin ([facility] V24, [facility] V28) Hypercholesteremia Gout, unspecified cause, unspecified chronicity, unspecified site Benign prostatic hyperplasia, unspecified whether lower urinary tract symptoms present Gastroesophageal reflux disease without esophagitis Primary hypertension Vitamin D insufficiency LIPID PANEL WITH REFLEX TO DIRECT LDL Routine 05/20/2025 12:49 PM EDT Type 2 diabetes mellitus without complications ([facility] V24, [facility] V28) Pure hypercholesterolemia, unspecified Type 2 diabetes mellitus without complication, without long-term current use of insulin ([facility] V24, [facility] V28) Hypercholesteremia Gout, unspecified cause, unspecified chronicity, unspecified site Benign prostatic hyperplasia, unspecified whether lower urinary tract symptoms present Gastroesophageal reflux disease without esophagitis Primary hypertension Vitamin D insufficiency MICROALBUMIN CREATININE URINE RATIO Routine 05/20/2025 12:49 PM EDT Type 2 diabetes mellitus without complications ([facility] V24, [facility] V28) Pure hypercholesterolemia, unspecified Type 2 diabetes mellitus without complication, without long-term current use of insulin ([facility] V24, [facility] V28) Hypercholesteremia Gout, unspecified cause, unspecified chronicity, unspecified site Benign prostatic hyperplasia, unspecified whether lower urinary tract symptoms present Gastroesophageal reflux disease without esophagitis Primary hypertension Vitamin D insufficiency COMPREHENSIVE METABOLIC PANEL Routine 05/20/2025 12:49 PM EDT Type 2 diabetes mellitus without complications ([facility] V24, [facility] V28) Pure hypercholesterolemia, unspecified Type 2 diabetes mellitus without complication, without long-term current use of insulin ([facility] V24, [facility] V28) Hypercholesteremia Gout, unspecified cause, unspecified chronicity, unspecified site Benign prostatic hyperplasia, unspecified whether lower urinary tract symptoms present Gastroesophageal reflux disease without esophagitis Primary hypertension Vitamin D insufficiency HEMOGLOBIN A1C Routine 05/20/2025 12:49 PM EDT Type 2 diabetes mellitus without complications ([facility] V24, [facility] V28) Pure hypercholesterolemia, unspecified Type 2 diabetes mellitus without complication, without long-term current use of insulin ([facility] V24, [facility] V28) Hypercholesteremia Gout, unspecified cause, unspecified chronicity, unspecified site Benign prostatic hyperplasia, unspecified whether lower urinary tract symptoms present Gastroesophageal reflux disease without esophagitis Primary hypertension Vitamin D insufficiency URIC ACID Routine 05/20/2025 12:49 PM EDT Type 2 diabetes mellitus without complications ([facility] V24, [facility] V28) Pure hypercholesterolemia, unspecified Type 2 diabetes mellitus without complication, without long-term current use of insulin ([facility] V24, [facility] V28) Hypercholesteremia Gout, unspecified cause, unspecified chronicity, unspecified site Benign prostatic hyperplasia, unspecified whether lower urinary tract symptoms present Gastroesophageal reflux disease without esophagitis Primary hypertension Vitamin D insufficiency VITAMIN D 25 HYDROXY Routine 05/20/2025 12:49 PM EDT Type 2 diabetes mellitus without complications ([facility] V24, [facility] V28) Pure hypercholesterolemia, unspecified Type 2 diabetes mellitus without complication, without long-term current use of insulin ([facility] V24, [facility] V28) Hypercholesteremia Gout, unspecified cause, unspecified chronicity, unspecified site Benign prostatic hyperplasia, unspecified whether lower urinary tract symptoms present Gastroesophageal reflux disease without esophagitis Primary hypertension Vitamin D insufficiency CBC AND DIFFERENTIAL Routine 05/20/2025 12:49 PM EDT Type 2 diabetes mellitus without complications ([facility] V24, [facility] V28) Pure hypercholesterolemia, unspecified Type 2 diabetes mellitus without complication, without long-term current use of insulin ([facility] V24, [facility] V28) Hypercholesteremia Gout, unspecified cause, unspecified chronicity, unspecified site Benign prostatic hyperplasia, unspecified whether lower urinary tract symptoms present Gastroesophageal reflux disease without esophagitis Primary hypertension Vitamin D insufficiency HEPATITIS C ANTIBODY Routine 05/20/2025 12:49 PM EDT Type 2 diabetes mellitus without complications ([facility] V24, [facility] V28) Pure hypercholesterolemia, unspecified Type 2 diabetes mellitus without complication, without long-term current use of insulin ([facility] V24, [facility] V28) Hypercholesteremia Gout, unspecified cause, unspecified chronicity, unspecified site Benign prostatic hyperplasia, unspecified whether lower urinary tract symptoms present Gastroesophageal reflux disease without esophagitis Primary hypertension Vitamin D insufficiency DEPRESSION SCREENING Routine 08/15/2024 FALLS RISK ASSESSMENT Routine 04/20/2024 DIABETES FOOT EXAM Routine 03/27/2024 from Last 3 Months or Most Recently Relevant to Health Maintenance Results * External Diabetic Retina Eye Exam Report (06/26/2025 10:42 AM EDT) Anatomical Region Laterality Modality Ultrasound Historical Provider MD BRENNAN US PROCEDURES Final R esult * Hepatitis C antibody (05/20/2025 12:49 PM EDT) Pathologist [facility] Hepatitis C Antibody Negative Negative LAB CHEMISTRY METHOD 05/20/2025 8:23 PM EDT [facility] Blood Venous blood specimen / Unknown Venipuncture / Unknown 05/20/2025 12:49 PM EDT 05/20/2025 12:49 PM EDT Regino JOVEL LAB BLOOD ORDERABLES Anna l Result [facility] [address] [place] [address], [place] [phone] * (ABNORMAL) Lipid panel with reflex to direct LDL (05/20/2025 12:49 PM EDT) Cholesterol 132 0 - 200 mg/dL LAB CHEMISTRY METHOD 05/20/2025 4:50 PM EDT [facility] Triglycerides 344(H) 0 - 150 mg/dL LAB CHEMISTRY METHOD 05/20/2025 4:50 PM EDT [facility] HDL 34(L) >=40 mg/dL LAB CHEMISTRY METHOD 05/20/2025 4:50 PM EDT [facility] LDL Calculated 29 0 - 100 mg/dL LAB CHEMISTRY METHOD 05/20/2025 4:50 PM EDT [facility] VLDL Cholesterol Ignacio 68.8 mg/dL LAB CHEMISTRY METHOD 05/20/2025 4:50 PM EDT [facility] Non HDL Chol. (LDL+VLDL) 98 <145 mg/dL LAB CHEMISTRY METHOD 05/20/2025 4:50 PM EDT [facility] Chol/HDL Ratio 3.9 0.0 - 4.4 LAB CHEMISTRY METHOD 05/20/2025 4:50 PM EDT [facility] Blood Venous blood specimen / Unknown Venipuncture / Unknown 05/20/2025 12:49 PM EDT 05/20/2025 12:49 PM EDT us Regino JOVEL LAB BLOOD ORDERABLES Anna brower Result [facility] [address] [place] [address], * (ABNORMAL) CBC auto differential (05/20/2025 12:49 PM EDT) WBC 6.9 4.8 - 10.8 K/mcL LAB HEMETOLOGY METHOD 05/20/2025 4:24 PM EDT [facility] RBC 4.70 4.50 - 5.50 M/mcL LAB HEMETOLOGY METHOD 05/20/2025 4:24 PM EDT [facility] Hemoglobin 14.8 13.5 - 17.5 g/dL LAB HEMETOLOGY METHOD 05/20/2025 4:24 PM EDT [facility] Hematocrit 45.2 42.0 - 54.0 % LAB HEMETOLOGY METHOD 05/20/2025 4:24 PM EDT [facility] MCV 95.8 79.0 - 98.0 FL LAB HEMETOLOGY METHOD 05/20/2025 4:24 PM EDT [facility] MCH 31.4 27.0 - 32.0 pcg LAB HEMETOLOGY METHOD 05/20/2025 4:24 PM EDT [facility] MCHC 32.7 32.0 - 37.0 g/dL LAB HEMETOLOGY METHOD 05/20/2025 4:24 PM EDT [facility] RDW 13.8 11.0 - 15.0 % LAB HEMETOLOGY METHOD 05/20[facility]2025 [facility] Plate[facility] 241 130 - 400 K/mcL LAB HEMETOLOGY METHOD 05/20/2025 4:24 PM [facility] MPV 9.9 7.0 - 11.0 FL LAB HEMETOLOGY METHOD 05/20/2025 4:24 PM [facility] NRBC 0.0 <1.0 % LAB HEMETOLOGY METHOD 05/20/2025 4:24 PM [facility] NRBC Absolute 0.00 <0.10 K/mcL LAB HEMETOLOGY METHOD 05/20/2025 4:24 PM [facility] Neutrophils Relative 66.9 % LAB HEMETOLOGY METHOD 05/20/2025 4:24 PM EDT [facility] Lymphocytes Relative 21.1 % LAB HEMETOLOGY METHOD 05/20/2025 4:24 PM [facility] Monocytes Relative 8.1 % LAB HEMETOLOGY METHOD 05/20/2025 4:24 PM [facility] Eosinophils Relative 2.3 % LAB HEMETOLOGY METHOD 05/20/2025 4:24 PM [facility] Basophils Relative 1.0 % LAB HEMETOLOGY METHOD 05/20/2025 4:24 PM EDT [facility] Immature Granulocytes Relative 0.6 % LAB HEMETOLOGY METHOD 05/20/2025 4:24 PM EDT [facility] Neutrophils Absolute 4.64 1.50 - 7.00 K/mcL LAB HEMETOLOGY METHOD 05/20/2025 4:24 PM EDT [facility] Lymphocytes Absolute 1.46 1.00 - 5.00 K/mcL LAB HEMETOLOGY METHOD 05/20/2025 4:24 PM EDT [facility] Monocytes Absolute 0.56 0.20 - 1.00 K/mcL LAB HEMETOLOGY METHOD 05/20/2025 4:24 PM EDT [facility] Eosinophils Absolute 0.16 0.00 - 0.50 K/mcL LAB HEMETOLOGY METHOD 05/20/2025 4:24 PM EDT [facility] Basophils Absolute 0.07 0.00 - 0.20 K/mcL LAB HEMETOLOGY METHOD 05/20/2025 4:24 PM EDT [facility] Immature Granulocytes Absolute 0.04(H) 0.00 - 0.03 K/mcL LAB HEMETOLOGY METHOD 05/20/2025 4:24 PM EDT [facility] Blood Venous blood specimen / Unknown Venipuncture / Unknown 05/20/2025 12:49 PM EDT 05/20/2025 12:49 PM EDT us Regino JOVEL LAB BLOOD ORDERABLES Anna brower Result [facility] [address] [place] [address], * Microalbumin creatinine urine ratio (05/20/2025 12:49 PM EDT) Creatinine, Urine 78.0 mg/dL LAB CHEMISTRY METHOD 05/20/2025 5:04 PM EDT [facility] Microalb, Ur 7.7 0.0 - 29.0 mg/L LAB CHEMISTRY METHOD 05/20/2025 5:04 PM EDT [facility] Microalb/Creat Ratio 10 <30 mg/g creat LAB CHEMISTRY METHOD 05/20/2025 5:04 PM EDT [facility] Urine Urine specimen obtained by clean catch procedure / Unknown Non-blood Collection / Unknown 05/20/2025 12:49 PM EDT 05/20/2025 12:49 PM EDT Regino JOVEL LAB URINE ORDERABLES Anna l Result Performing Organization Address [facility]/ZIP Co de Phone Number [facility] [address] [place] [address], * Vitamin D 25 hydroxy (05/20/2025 12:49 PM EDT) Vit D, 25-Hydroxy 44.2 30.0 - 80.0 ng/mL LAB CHEMISTRY METHOD 05/20/2025 7:44 PM EDT [facility] Blood Venous blood specimen / Unknown Venipuncture / Unknown 05/20/2025 12:49 PM EDT 05/20/2025 12:49 PM EDT Regino JOVEL LAB BLOOD ORDERABLES Anna l Result [facility] [address] [place] [address], [place] [phone] * Uric acid (05/20/2025 12:49 PM EDT) Uric Acid 5.3 3.7 - 9.2 mg/dL LAB CHEMISTRY METHOD 05/20/2025 4:50 PM EDT [facility] Blood Venous blood specimen / Unknown Venipuncture / Unknown 05/20/2025 12:49 PM EDT 05/20/2025 12:49 PM EDT Regino JOVEL LAB BLOOD ORDERABLES Anna l Result Performing Organization Address [facility]/ZIP Co de Phone Number [facility] [address] [place] [address], [place] [phone] * (ABNORMAL) Hemoglobin A1c (05/20/2025 12:49 PM EDT) Pathologist [facility] Hemoglobin A1C 7.9(H) <6.5 % LAB CHEMISTRY METHOD 05/20/2025 9:50 PM EDT [facility] Mean Bld Glu Estim. 180 mg/dL LAB CHEMISTRY METHOD 05/20/2025 9:50 PM EDT [facility] Blood Venous blood specimen / Unknown Venipuncture / Unknown 05/20/2025 12:49 PM EDT 05/20/2025 12:49 PM EDT Regino JOVEL LAB BLOOD ORDERABLES Anna l Result Performing Organization Address [facility]/ZIP Co de Phone Number [facility] [address] [place] [address], [place] [phone] * (ABNORMAL) Comprehensive metabolic panel (05/20/2025 12:49 PM EDT) [facility] Sodium 134 133 - 145 mmol/L LAB CHEMISTRY METHOD 05/20/2025 4:57 PM EDT [facility] Potassium 4.1 3.5 - 5.5 mmol/L LAB CHEMISTRY METHOD 05/20/2025 4:57 PM EDT [facility] Chloride 102 96 - 110 mmol/L LAB CHEMISTRY METHOD 05/20/2025 4:57 PM EDT [facility] CO2 24 21 - 32 mmol/L LAB CHEMISTRY METHOD 05/20/2025 4:57 PM [facility] Anion Gap 8 3 - 11 LAB CHEMISTRY METHOD 05/20/2025 4:57 PM [facility] Glucose 307(H) 70 - 100 mg/dL LAB CHEMISTRY METHOD 05/20/2025 4:57 PM [facility] BUN 17 5 - 25 mg/dL LAB CHEMISTRY METHOD 05/20/2025 4:57 PM [facility] Creatinine 1.17 0.70 - 1.30 mg/dL LAB CHEMISTRY METHOD 05/20/2025 4:57 PM [facility] eGFR 63 >=60 mL/min/1. 73m2 LAB CHEMISTRY METHOD 05/20/2025 4:57 PM [facility] Comment:Calculation based on the Chronic Kidney Disease Epidemiology Collaboration (CKD-EPI) equation refit without adjustment for race. BUN/Creatinine Ratio 14.5 LAB CHEMISTRY METHOD 05/20/2025 4:57 PM [facility] Calcium 9.9 8.5 - 10.5 mg/dL LAB CHEMISTRY METHOD 05/20/2025 4:57 PM [facility] AST (SGOT) 23 10 - 42 unit/L LAB CHEMISTRY METHOD 05/20/2025 4:57 PM [facility] ALT (SGPT) 40 10 - 60 unit/L LAB CHEMISTRY METHOD 05/20/2025 4:57 PM [facility] Alkaline Phosphatase 124(H) 42 - 121 unit/L LAB CHEMISTRY METHOD 05/20/2025 4:57 PM [facility] Total Protein 7.3 6.0 - 8.0 g/dL LAB CHEMISTRY METHOD 05/20/2025 4:57 PM [facility] Albumin 3.9 3.2 - 5.0 g/dL LAB CHEMISTRY METHOD 05/20/2025 4:57 PM [facility] Total Bilirubin 0.6 0.0 - 1.4 mg/dL LAB CHEMISTRY METHOD 05/20/2025 4:57 PM EDT [facility] Blood Venous blood specimen / Unknown Venipuncture / Unknown 05/20/2025 12:49 PM EDT 05/20/2025 12:49 PM EDT Regino JOVEL LAB BLOOD ORDERABLES Anna l Result [facility] [address] [place] [address], [place] [phone] * Depression Screening (08/15/2024) Depression Screening Abstracted [facility] Provider MD HEALTH MAINTENANCE Final Result * Falls Risk Assessment (04/20/2024) Pathologist [facility] Falls Risk Assessment Abstracted [facility] Provider MD HEALTH MAINTENANCE Final Result * Diabetes Foot Exam (03/27/2024) Diabetes: Annual Foot Exam Abstracted [facility] Provider MD HEALTH MAINTENANCE Final Result from Last 3 Months or Most Recently Relevant to Health Maintenance Insurance MEDICARE [facility] Advance Directives Documents on File Type Date Recorded 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 Do not modify or discontinue any currently active code status orders. 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
--- OUTSIDE RECORDS SUMMARY | 2025-07-08 21:36 | XMS_ITS ---
[facility] Organization [facility] Care Team Organization Name Specialty Phone Email Start Date End Da te [facility] Regino Bagley Primary Care 08/31/2022
--- OUTSIDE RECORDS SUMMARY | 2025-07-08 21:36 | XMS_ITS | Patient Health Record ---
Author Organization [facility] Address [address] 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 Role Phone Regino Pratt Primary Care Provider Unav ailable Black, Molly Unavailable [phone] Allergies No Known Allergies Results Component Value Reference Range Notes HEMOGLOBIN A1C (GLYCOHEMOGLO BIN) Reviewed date:08/09/2024 01:55:44 PM Interpretation: Performing Lab: Notes/Report: TOTAL HEMOGLOBIN (HGBA1C) 6.8 HEMOGLOBIN A1C (GLYCOHEMOGLO BIN) Reviewed date:12/13/2024 01:20:40 PM Interpretation: Performing Lab: Notes/Report: HEMOGLOBIN A1C % (HH) 6.8 HEMOGLOBIN A1C (GLYCOHEMOGLO BIN) Reviewed date:02/14/2025 01:58:07 PM Interpretation: Performing Lab: Notes/Report: HEMOGLOBIN A1C % (HH) 7.4 Reason For Referral No Information Medications Medication SIG (Take, Route, Frequency, Duration) Notes Start Date End Date Status amLODIPine Besylate 10 MG 1 tablet Orall y Once a day; Duration: 30 day(s) Active metFORMIN HCl 500 MG 1 tablet with a hunter l Orally three times a day Not-Taking Centrum Silver - as directed Orally 03/25/2020 Active Extra Depth Orthopedic Shoes (1 Pair) with Customized Heat Molded Multidensity Innersoles (3 Pair) as directed Dx: NIDDM/Polyneuropathy (E11.42), Hammertoe Foot Deformity (M20.41,M20.42), Preulcerative Skin Lesion(s) (L85.1 08/25/2020 Not-Taking Doxazosin Mesylate 2 MG 1 tablet Orally Once a day; Duration: 30 day(s) Active Amoxicillin-Pot Clavulanate 875 875-125 MG one tab Orally every 12 hrs; Duration: 10 day(s) 07/28/2022 Not-Taking Losartan Potassium 25 MG 1 tablet Orally Once a day; Duration: 30 day(s) Active Cipro 750 MG 1 tablet Orally once daily; Duration: 10 days 07/28/2022 Not-Taking Flonase PRN Not-Taking Meloxicam Active Extra Depth Orthopedic Shoes (1 Pair) with Customized Heat Molded Multidensity Innersoles (3 Pair) as directed Dx: NIDDM/Polyneuropathy (E11.42), Hammertoe Foot Deformity (M20.41,M20.42), Preulcerative Skin Lesion(s) (L85.1 12/13/2024 Active Atorvastatin Calcium 40 MG 1 tablet Oral ly Once a day Active Albuterol Not-Taking Aspirin 81 81 MG 1 tablet Orally Once a day; Duration: 30 day(s) Active Metoprolol Succinate 200 MG 1 capsule Or ally Once a day; Duration: 30 day(s) Active Lovastatin 40 MG 1 tablet with the evening meal Orally Once a day; Duration: 30 day(s) Not-Taking Vitamin D 50 MCG (2000 UT) 1 tablet Oral ly Once a day; Duration: 30 day(s) 03/25/2020 Active Cephalexin 500 MG 1 capsule Orally BID ; Duration: 10 days 06/08/2021 Not-Taking Arnuity Ellipta 100 MCG/ACT INHALE 1 PUF F INTO LUNGS ONCE DAILY Inhalation; Duration: 30 Days Active hydroCHLOROthiazide 25 MG 1 tablet in morning Orally Once a day; Duration: 30 day(s) Not-Taking metFORMIN HCl Active Ammonium Lactate 12 % 1 application Externally to affected areas of skin to feet except for between the toes Twice a day; Duration: 30 days Active Immunizations Vaccine Route Administration Date Status Comme nts Influenza Unknown 07/24/2019 Administered Influenza Unknown 08/20/2020 Administered Influenza Unknown 01/05/2024 Refused Social History Tobacco Use: Social History Observation Description Date Details (start date - stop date) Never Smoker NA - NA Tobacco use other than smoking: Question Answer Notes Are you an other tobacco user? No Tobacco Control (Standard) Question Answer Notes Tobacco use: Nonsmoker Additional Findings: Tobacco non-user Current no nsmoker AUDIT-C (Standard) Question Answer Notes Did you have a drink contain ing alcohol in the past year? Yes How often did you have a dri nk containing alcohol in the past year? 2 to 4 times a month (2 points) How many drinks did you have on a typical day when you were drinking in the past year? 1 or 2 drinks (0 point) How often did you have six o r more drinks on one occasion in the past year? Never (0 point) Points 2 Interpretation Negative Problems Problem Type SNOMED Code ICD Code Onset Dates Problem Status W/U Status Risk Notes Problem Polyneuropathy due to type 2 diabetes mellitus (189926555) Type 2 diabetes mellitus with diabetic polyneuropathy (E11.42) Active confirmed Vital Signs Heart Rate 66 /min 12/13/2024 Blood pressure diastolic 70 mm Hg 04/18/2025 Height 5 ft 5 in in 04/18/2025 Blood pressure systolic 125 mm Hg 04/18/2025 Weight 195 lbs 04/18/2025 BMI 32.45 kg/m2 04/18/2025 Procedures Procedure Date Ordered Date Performed Result Body Sit e 22869-NBLHIUH NAIL, 6 OR MORE 08/09/2024 N/A 30261-YHHV SKIN LESIONS, OVER 4 08/09/2024 N/A 95474-GPTAJUR NAIL, 6 OR MORE 10/11/2024 N/A 86555-VLVG SKIN LESIONS, OVER 4 10/11/2024 N/A 41564-TTHMDIO NAIL, 6 OR MORE 12/13/2024 N/A 14694-XEDN SKIN LESIONS, OVER 4 12/13/2024 N/A 94567-OPUIOPL NAIL, 6 OR MORE 02/14/2025 N/A 50784-Dzjxowxg Plate 02/14/2025 N/A 57877-DDDC SKIN LESIONS, OVER 4 02/14/2025 N/A 57579-MDGZHSY NAIL, 6 OR MORE 04/18/2025 N/A 87541-JOTZ SKIN LESIONS, OVER 4 04/18/2025 N/A Encounters Encounter [facility] Date [facility] [address] [place] [address] [facility]/09/2024 Molly Black Type 2 diabetes mellitus with diabetic polyneuropathy E11.42 ; Tinea unguium B35.1 and Xerosis of skin L85.[address] [address] 10/11/2024 Molly Black Type 2 diabetes mellitus with diabetic polyneuropathy E11.42 ; Contusion of lesser toe of left foot without damage to nail, initial encounter S90.122A ; Tinea unguium B35.1 ; Xerosis of skin L85.3 and Pain in left toe(s) M79.[address] [address] 12/13/2024 Molly Black Type 2 diabetes mellitus with diabetic polyneuropathy E11.42 ; Other hammer toe(s) (acquired), right foot M20.41 ; Tinea unguium B35.1 and Other hammer toe(s) (acquired), left foot M20.[address] [address] 02/14/2025 Molly Black Type 2 diabetes mellitus with diabetic polyneuropathy E11.42 ; Tinea unguium B35.1 and Ingrown nail L60.[address] [address] 04/18/2025 Mollyivette Lawrence Type 2 diabetes mellitus with diabetic polyneuropathy E11.42 and Tinea unguium B35.[address] [address] 10/01/2024 Molly Lawrence [address] [address] 02/14/2025 Molly Lawrence Assessments Encounter Date Diagnosis (ICD Code) Assessment Notes Treatment Notes Treatment Clinical Notes Section Notes 08/09/2024 Type 2 diabetes mellitus with diabetic polyneuropathy (ICD-10 - E11.42) 10/11/2024 Type 2 diabetes mellitus with diabetic polyneuropathy (ICD-10 - E11.42) 10/11/2024 Contusion of lesser toe of left foot without damage to nail, initial encounter (ICD-10 - S90.122A) 12/13/2024 Other hammer toe(s) (acquired), right foot (ICD-10 - M20.41) Patient Educated with: DIABETIC FOOT CARE INSTRUCTIONS. pdf (DIABETIC FOOT CARE INSTRUCTIONS. pdf) 12/13/2024 Type 2 diabetes mellitus with diabetic polyneuropathy (ICD-10 - E11.42) 04/18/2025 Type 2 diabetes mellitus with diabetic polyneuropathy (ICD-10 - E11.42) 04/18/2025 Tinea unguium (ICD-10 - B35.1) 02/14/2025 Type 2 diabetes mellitus with diabetic polyneuropathy (ICD-10 - E11.42) 02/14/2025 Tinea unguium (ICD-10 - B35.1) 02/14/2025 Ingrown nail (ICD-10 - L60.0) 12/13/2024 Tinea unguium (ICD-10 - B35.1) 10/11/2024 Tinea unguium (ICD-10 - B35.1) 08/09/2024 Tinea unguium (ICD-10 - B35.1) 08/09/2024 Xerosis of skin (ICD-10 - L85.3) 10/11/2024 Xerosis of skin (ICD-10 - L85.3) 12/13/2024 Other hammer toe(s) (acquired), left foot (ICD-10 - M20.42) 10/11/2024 Pain in left toe(s) (ICD-10 - M79.675) 02/14/2025 Other Plan Of Treatment Pending Test Test Name Order Date 55639-CAXVRRK NAIL, 6 OR MORE 03/27/2020 36008-ZYIPAIN NAIL, 6 OR MORE 06/23/2020 47758-RYZQFNH NAIL, 6 OR MORE 08/25/2020 33396-BUPLPSG NAIL, 6 OR MORE 11/17/2020 15830-OCHVWKI NAIL, 6 OR MORE 02/09/2021 81698-NTZCONL NAIL, 6 OR MORE 05/11/2021 16296-YXFHEAW NAIL, 6 OR MORE 08/06/2021 00573-TJJBMOW NAIL, 6 OR MORE 10/22/2021 89015-VLBSSLL NAIL, 6 OR MORE 12/24/2021 65319-NSISGIQ NAIL, 6 OR MORE 02/25/2022 59039-SIFMBVO NAIL, 6 OR MORE 05/17/2022 04655-BGVMDVI NAIL, 6 OR MORE 07/19/2022 17325-ZJEOZMF NAIL, 6 OR MORE 09/20/2022 26087-BHSKUSH NAIL, 6 OR MORE 11/22/2022 65490-YRPZRUW NAIL, 6 OR MORE 01/24/2023 16320-PLZVNYE NAIL, 6 OR MORE 03/28/2023 73099-KZLTBEU NAIL, 6 OR MORE 05/30/2023 83121-IKLMCZO NAIL, 6 OR MORE 08/04/2023 49207-ZQKFTSG NAIL, 6 OR MORE 11/03/2023 62321-SRBTEUC NAIL, 6 OR MORE 01/05/2024 56218-EPWTSJZ NAIL, 6 OR MORE 06/07/2024 79651-GUYEYHO NAIL, 6 OR MORE 08/09/2024 82197-WQBSWER NAIL, 6 OR MORE 10/11/2024 15525-IIHTKYB NAIL, 6 OR MORE 12/13/2024 80488-TLVFBJQ NAIL, 6 OR MORE 02/14/2025 34698-KQCQFOF NAIL, 6 OR MORE 04/18/2025 54288-Riszmxpr Plate 02/14/2025 51624-Ptdqtnei Plate 01/24/2023 19289-Tzriyovv Plate 01/05/2024 27140-Mauintkc Plate 02/25/2022 10722-Micsvjxs Plate 05/17/2022 91551-Iunazsrc Plate 05/11/2021 85468- Debride <25 sq cm 06/22/2021 46206- Debride <25 sq cm 07/16/2021 61499- Debride <25 sq cm 08/06/2021 99951- Debride <25 sq cm 08/16/2022 08496 I&D ABSCESS- SIMPLE,SINGLE 021 87481- I&D ABSCESS-COMPLICATED,MULTI 02/2022 87568-OQLQ SKIN LESIONS, OVER 4 07/19/20 22 95009-WRVN SKIN LESIONS, OVER 4 05/17/20 22 51648-MAEV SKIN LESIONS, OVER 4 02/26/20 22 51066-YRYK SKIN LESIONS, OVER 4 12/25/19 22 59104-JSAD SKIN LESIONS, OVER 4 08/06/20 63957-PNLP SKIN LESIONS, OVER 4 05/11/20 21 59369-XESJ SKIN LESIONS, OVER 4 04/19/20 21 19779-HGGW SKIN LESIONS, OVER 4 11/17/19 21 10481-XWRO SKIN LESIONS, OVER 4 08/25/20 99132-VPPQ SKIN LESIONS, OVER 4 06/23/20 20 65427-ZJQN SKIN LESIONS, OVER 4 09/20/20 22 17344-VOSB SKIN LESIONS, OVER 4 11/22/19 23 26865-FFXK SKIN LESIONS, OVER 4 03/28/20 38899-GMIQ SKIN LESIONS, OVER 4 01/05/20 14911-KZMP SKIN LESIONS, OVER 4 11/03/19 85665-NHQX SKIN LESIONS, OVER 4 08/04/20 21171-PGXJ SKIN LESIONS, OVER 4 05/30/20 33319-OHZY SKIN LESIONS, OVER 4 06/07/20 34719-PMQA SKIN LESIONS, OVER 4 10/11/20 20097-PWYF SKIN LESIONS, OVER 4 08/09/20 20050-XTUX SKIN LESIONS, OVER 4 04/18/20 37164-LLWT SKIN LESIONS, OVER 4 02/15/20 52651-BIJG SKIN LESIONS, OVER 4 12/13/19 41103-WWUK SKIN LESIONS, 2 TO 4 01/25/20 85985-JNID SKIN LESIONS, 2 TO 4 03/27/20 47169-YMIY SKIN LESIONS, 2 TO 4 10/22/20 Next Appt Details Provider Name:Molly Lawrence , 07/11/2025 10:00:00 AM, [address] [place] [address], [phone], Provider Name:Molly Lawrence , 08/22/2025 01:30:00 PM, [address] [place] [address], [phone], Insurance Providers Payer Name Payer Address Payer Phone Subscriber Number Group Number Insured Name Patient Relationship to Insured Coverage Start Date Coverage End Date Medicare National [employer] [address] [place] [phone] [id number] Lebron Whiteside Self - patient is the insured [employer] [id number] [place] [address] [id number] Lebron Whiteside Self - patient is the insured Medical (General) History Medical History History ICD Code Skin cancer Cataracts type II diabetes Gout High blood pressure Reflux Measles Mumps Chicken pox Hallux valgus (acquired), right foot M20 .11 Hallux valgus (acquired), left foot M20. 12 Idiopathic gout, left ankle and foot M10 .072 Other hammer toe(s) (acquired), right fo ot M20.41 Other hammer toe(s) (acquired), left candi t M20.42 Surgical History Surgery Date(Month/Year) vasectomy cyst removal Hospitalization History Reason Date(Month/Year) [facility]- elbow infection, in for 6 days 06/25 024 [facility]- 4 days Infection in left elbow 12/23 021
== END 2025-07-08 17:14 | disposition home or self-care (01) ==
PROVIDERS: Registered Nurse Emergency; Emergency Provider Emergency Medicine; PCP Physician Assistant Medical
DX: J45.909 Unspecified asthma, uncomplicated (principal); R05.9 Cough, unspecified; R09.89 Other specified symptoms and signs involving the circulatory and respiratory systems; Z11.52 Encounter for screening for COVID-19; Z79.899 Other long term (current) drug therapy
CPT/HCPCS: 71046; 80053; 85025; 87502; 87635; 99283

== ENCOUNTER → 2025-07-08 10:56 | Outpatient (BNV) | payer MEDICARE, OTHER, SELFPAY | PROVIDERS: PCP Physician Assistant Medical; Visit Provider Radiology Diagnostic Radiology | DX: R05.9 Cough, unspecified (principal) | CPT/HCPCS: 71046 ==